=== PATIENT | male | born 1950 | race Caucasian/White ===

== ENCOUNTER 2016-12-14 06:54 | Day surgery (SDC) | payer MEDICARE, OTHER ==
[~2016-12-14] VITALS: Ht 172.7 cm; Wt 74.8 kg
[~2016-12-14 06:54] MED LIST: DIVALPROEX SOD250 M1 PO; HYDROXYZINE HCL25 M1 PO; MEDDOSEPAK PO; MOTRIN800 MG PO; OMEPRAZOLE20 MG PO; PHENERGAN25 MG/TAB PO; TERAZOSIN HCL5 MG PO; VENTOLIN HFA IN; ZITHROMAX250 MG PO
[2016-12-14] MEDS ORDERED: ASMANEX (07:07)
[2016-12-14 07:15] VITALS: BP 155/95
[2016-12-14 07:16] LABS: BARBITURATES NEGATIVE (NEGATIVE); COCAINE POSITIVE (NEGATIVE); METHADONE NEGATIVE (NEGATIVE); OXCYCODONE NEGATIVE (NEGATIVE); TETRAHYDROCANNABIONOL NEGATIVE (NEGATIVE); TRICYLIC ANTIDEPRESSANTS NEGATIVE (NEGATIVE)
== END 2016-12-14 07:25 | disposition home or self-care (01) ==
LOC: ENDO 06:54
PROVIDERS: ATTEND Internal Medicine Gastroenterology
DX: Z12.11 Encounter for screening for malignant neoplasm of colon (principal); K21.9 Gastro-esophageal reflux disease without esophagitis; E78.00 Pure hypercholesterolemia, unspecified; Z53.09 Procedure and treatment not carried out because of other contraindication

== ENCOUNTER 2017-08-04 08:03 | Inpatient (IN) | payer MEDICARE, OTHER ==
[~2017-08-04] VITALS: Ht 172.7 cm; Wt 76.0 kg
[~2017-08-04 08:03] MED LIST changes: +ASMANEX
[2017-08-04] MEDS ORDERED: SIMVASTATIN5 MG PO (08:18)
--- NOTE | 2017-08-04 08:19 | NUR ---
PT TO ROOM FOR EXAM
--- NOTE | 2017-08-04 08:35 | NUR ---
IV INITIATED AND LABS COLLECTED. RT AT BEDSIDE.
--- NOTE | 2017-08-04 09:00 | NUR ---
PT RESTING IN STRETCHER WITH HOB ELEVATED. LS DIMISHED BILATERALLY. PT REPORTS 1 WEEK HX OF PRODUCTIVE COUGH. PER PT SAO2 91-93% ON ROOM AIR, UPON ARRIVAL SAO2 88%. PT SAO2 93 % ON 2 L NC. PT AWARE OF PLAN OF CARE AND WAIT TIME, WILL CONTINUE TO MONITOR.
[2017-08-04 09:18] LABS: HEMATOCRIT 42.3 % (39.0-50.0); HEMOGLOBIN 14.7 g/dl (14.0-18.0); IMMATURE GRANULOCYTES 0.4 % (0.0-1.0); MEAN CELL VOLUME 88.1 fL CALC (80.0-100.0); MEAN CORPUSCULAR HGB 30.6 pG CALC (26.0-32.0); MEAN CORPUSCULAR HGB CONC 34.8 g/L CALC (32.0-36.0); NEUT# 5.72 thou/uL (1.82-7.42); RED BLOOD COUNT 4.8 mill/uL (4.70-6.10); RED CELL DISTRI WIDTH 12.9 % (11.5-15.5)
[2017-08-04 09:43] LABS: ALBUMIN 4.1 g/dL (3.2-5.0); ALKALINE PHOSPHATASE 128 u/l (38-126); ANION GAP 17 (6-22 (CALC)); BILIRUBIN, TOTAL 0.7 mg/dL (0.0-1.4); BUN 14 mg/dL (8-23); BUN/CREATININE RATIO 14 (12-20 (CALC)); CALCIUM 9.8 mg/dL (8.4-10.2); CARBON DIOXIDE 26 mmol/l (22-30); CHLORIDE 100 mmol/l (95-108); GFR > 60 ML/MIN (>=60 (CALC)); GFR FOR AFR.AMER. > 60 ML/MIN (>=60 (CALC)); GLUCOSE 108 mg/dL (82-115); POTASSIUM 3.8 mmol/l (3.5-5.1); SGOT/AST 31 u/l (19-48); SGPT/ALT 40 u/l (11-66); SODIUM 140 mmol/l (137-146); TOTAL PROTEIN 7.9 g/dL (6.3-8.2)
[2017-08-04 09:54] LABS: MYOGLOBIN 38 ng/mL (0 - 121)
--- NOTE | 2017-08-04 09:56 | NUR ---
URINE SAMPLE COLLECTED. PT REPORTS INCREASED SOB FROM STANDING TO USE URINAL. SA02 90% ON 2L AND RR 26. PT INCOURAGED TO SLOW BREATHING AND HOB ELEVATED. PT SA02 NOW 93% ON 2L, NC.
--- NOTE | 2017-08-04 10:08 | NUR ---
AT [facility] TO DISCUSS RESULTS AND PLAN FOR ADMISSION.
--- NOTE | 2017-08-04 11:08 | NUR ---
SBAR PRINTED TO FLOOR
--- NOTE | 2017-08-04 11:30 | NUR ---
PT RESTING COMFORTBALY IN STRETCHER AND DENIES ANY NEEDS AT THIS TIME. CALL ARCHER WITHIN REACH, WILL CONTINUE TO MONITOR.
--- NOTE | 2017-08-04 11:50 | NUR ---
REPORT CALLED TO CELENA ROSS.
--- NOTE | 2017-08-04 12:00 | NUR ---
FROM ER VIA WHEELCHAIR ACCOMPANIED BY LORNA DALLAS. AMBULATED TO BED WITH STEADY GAIT. RESPS LABORED ON O2 VIA NC, EXERTIONAL SHORTNESS OF BREATH NOTED, TELE MONITOR IN PLACE. REPORTS "PAIN UNDER RIGHT RIBCAGE FROM COUGHING FOR OVER A WEEK." WILL MEDICATE PER SEP. ORIENTED TO ROOM AND CALL SYSTEM. SAFETY PRECAUTIONS REINFORCED. BED IN LOWEST POSITION WITH WHEELS LOCKED. CALL LIGHT WITHIN REACH. WILL CONTINUE TO MONITOR.
--- NOTE | 2017-08-04 12:00 | NUR ---
Admission Note Report Given to: CELENA ROSS Transported by: X Wheelchair Stretcher Transported with: X Nurse Transporter X Patent IV X O2 X Director Of People
[2017-08-04 12:11] VITALS: BP 147/88
--- NOTE | 2017-08-04 13:40 | NUR ---
DR BLANKENSHIP IN WITH PT, NEW ORDERS RECEIVED.
[2017-08-04 14:21] LABS: URINE BILIRUBIN - DIPSTICK NEGATIVE (NEGATIVE); URINE BLOOD DIPSTICK TRACE-INTACT (NEGATIVE); URINE COLOR YELLOW; URINE GLUCOSE - DIPSTICK >=1000 mg/dL (NEGATIVE); URINE KETONE NEGATIVE (NEGATIVE); URINE LEUK ESTERASE NEGATIVE (Negative); URINE NITRITE - DIPSTICK NEGATIVE (Negative); URINE PROTEIN - DIPSTICK NEGATIVE (NEG-TRACE); URINE SPECIFIC GRAVITY <=1.005; URINE UROBILINOGEN - DIPSTICK 0.2 E.U./dL (0.2)
[2017-08-04 14:22] LABS: URINE CLARITY CLEAR
[2017-08-04 14:24] LABS: BARBITURATES NEGATIVE (NEGATIVE); COCAINE POSITIVE (NEGATIVE); METHADONE NEGATIVE (NEGATIVE); OXCYCODONE NEGATIVE (NEGATIVE); TETRAHYDROCANNABIONOL NEGATIVE (NEGATIVE); TRICYLIC ANTIDEPRESSANTS NEGATIVE (NEGATIVE)
--- NOTE | 2017-08-04 16:00 | NUR ---
RESTING IN HIGH FOWLERS WATCHING TV. RESPS EVEN AND UNLABORED ON O2 VIA NC, EXERTIONAL SHORTNESS OF BREATH NOTED, TELE MONITOR IN PLACE. DENIES PAIN OR DISCOMFORT AT THIS TIME. CALL LIGHT WITHIN REACH. WILL CONTINUE TO MONITOR.
[2017-08-04 16:04] VITALS: BP 128/80
--- NOTE | 2017-08-04 20:00 | NUR ---
PATIENT RESTING IN BED AT THIS TIME WITH O2 VIA NASAL CANNULA IN PLACE. JUST FINISHED SHOWER. SLIGHT SOB NOTED AFTER EXHERSION. PRODUCTIVE COUGH WITH GREEN SPUTUM PER PATIENT. HEP LOCK TO LEFT AC-SITE APPEARS HEALTHY AT THIS TIME. SAFETY PRECAUTIONS REINFORCED. CALL LIGHT IN REACH. WILL CONT TO MONITOR.
[2017-08-04 20:27] VITALS: BP 129/75
--- NOTE | 2017-08-04 22:34 | NUR ---
PATIENT RESTING IN BED AT THIS TIME WITH O2 VIA NASAL CANNULA IN PLACE. PATIENT JUST FININISHED SHOWER. SLIGHT SOB NOTED AFTER EXHERSION. PRODUCTIVE COUGH WITH GREEN SPUTUM. HEP LOCK TO THE LEFT AC-SITE APPEARS HEALTHY AT THIS TIME. SAFETY PRECAUTIONS REINFORCED. CALL LIGHT IN REACH. WILL CONT TO MONITOR.
--- NOTE | 2017-08-04 23:41 | NUR ---
PATIENT FINISHED NEB TREATMENT AND HAVING PRODUCTIVE COUGH. O2 VIA NASAL CANNULA IN PLACE. WATCHING TV AT THIS TIME. CALL LIGHT IN REACH. WILL CONT TO MONITOR.
[2017-08-04 23:44] VITALS: BP 133/80
--- NOTE | 2017-08-05 04:09 | NUR ---
PATIENT CALLED REQUESTING NEB TREATMENT-O2 VIA NASAL CANNULA IN PLACE. BS-DIMINISHED BUT CLEAR-FIME CRACKLES IN RIGHT BASE. RT CALLED FOR RESP TREAMENT. CALL LIGHT IN REACH. WILL CONT TO MONITOR.
[2017-08-05 05:24] VITALS: BP 128/70
--- NOTE | 2017-08-05 07:00 | NUR ---
SHIFT CHANGE REPORT FROM SHASHI PABLO AWAKE ALERT AND ORIENTED SITTING UP IN BED, NO C/O DISCOMFORT AT THIS TIME, O2 @ 2L VIA N/C IN PLACE,TELE MONITOR IN PLACE, CALL ARCHER IN REACH.
[2017-08-05 09:20] VITALS: BP 148/85
[2017-08-05 11:00] VITALS: BP 125/73
--- NOTE | 2017-08-05 12:03 | NUR ---
HAVING COUGHING SPELL AT THIS TIME AND STATES HE FEELS IF THERE IS SOMETHING IN HIS THROAT, HE EVENTUALLY EXPELLED A SMALL PIECE OF HAMBURGER AND ALSO EXPECTORATED THICK YELLOW SPUTUM-THENHE FELT BETTER AND COUGHING SUBSIDED, WILL CONTINUE TO MONITOR.
[2017-08-05 15:33] VITALS: BP 114/53
--- NOTE | 2017-08-05 15:57 | NUR ---
REQUESTED W/C STATING HE GETS TIRED OF BEING ON ONE PLACE SO LONG, W/C WITH O2 TANK GIVEN AND PT IS MOBILIZING HIMSELF IN HALLWAYS, REQUESTED ASSISTANCE WITH SHAVING AT THIS TIME, GIVEN SUPPLIES AND SHAVED INDEPENDENTLY, ALL NEEDS ADDRESSED, SNACK GIVEN UPON REQUEST, CALL ARCHER IN REACH.
--- NOTE | 2017-08-05 16:18 | NUR ---
Talked to patient today about his medications. He felt better, his cough symptoms have reduced and has some energy. he reported about some abdominal cramping when he coughs. Pt. has COPD exacerbation. he said no joint pain with levaquin. Nicotine patch he is on, this medication causes some eyes itching, but not watery eyes or insomnia. Patient said that duoneb nebulizer helped relief his symptoms. Patient has no other questions to the pharmacy at this time.
[2017-08-05 19:00] VITALS: BP 136/69
--- NOTE | 2017-08-05 19:30 | NUR ---
PATIENT COMING OUT OF THE BR-STEADY ON HIS FEET. ALERT AND ORIENTED X3. PATIENT REAPPLIED O2 IN BED. HEP LOCK TO LEFT AC INTACT-APPEARS HEALTHY AT THIS TIME. NO COMPLAINTS AT THIS TIME. SAFETY PRECAUTIONS REINFORCED. CALL LIGHT IN REACH. WILL CONT TO MONITOR.
--- NOTE | 2017-08-05 22:00 | NUR ---
PATIENT RESTING IN BED AT THIS TIME AFTER NEB TREATMENT WAS GIVEN. MEDICATED WITH TRAZADONE AND MOTRIN TO ASSIST WITH SLEEPING. COUGH HAS IMPROVED SINCE LAST NIGHT-ONLY OCC PRODUCTIVE COUGH. SOLU-MEDROL GIVEN ORDERED. CALL LIGHT IN REACH. WILL CONT TO MONITOR.
[2017-08-06 00:46] VITALS: BP 126/70
--- NOTE | 2017-08-06 01:05 | NUR ---
APPEARS SLEEPING AT THIS TIME WITH O2 VIA NASAL CANNULA IN PLACE. CALL LIGHT IN REACH. WILL CONT TO MONITOR.
[2017-08-06 04:19] VITALS: BP 140/84
[2017-08-06 06:20] LABS: ANION GAP 17 (6-22 (CALC)); BUN 19 mg/dL (8-23); BUN/CREATININE RATIO 18 (12-20 (CALC)); CALCIUM 9.8 mg/dL (8.4-10.2); CARBON DIOXIDE 25 mmol/l (22-30); CHLORIDE 104 mmol/l (95-108); GFR > 60 ML/MIN (>=60 (CALC)); GFR FOR AFR.AMER. > 60 ML/MIN (>=60 (CALC)); GLUCOSE 165 mg/dL (82-115); POTASSIUM 4.5 mmol/l (3.5-5.1); SODIUM 142 mmol/l (137-146)
[2017-08-06 08:12] VITALS: BP 142/88
[2017-08-06 11:00] VITALS: BP 156/84
[2017-08-06] MEDS ORDERED: IPRATROPIU0.5 MG/3 M NEB (12:37)
[2017-08-06] MEDS ORDERED: LEVAQUIN750 MG PO (12:37)
[2017-08-06] MEDS ORDERED: PREDNISONE10 MG PO (12:42)
[2017-08-06] MEDS ORDERED: NEBULIZER COMPRESSOR (12:42)
--- NOTE | 2017-08-06 12:51 | NUR ---
SITTING UP IN RECLINER, SPOUSE VISITING AND REPORTED PT'S GLUCOSE DROPS RAPIDLY DURING SLEEP, SHE MEASURES OFTEN AND HIS LEVEL COULD BE ABOVE 300 AT HS AND LOW 9 IN THE MORNINGS. ADVISED HE WILL BE MONITORED CLOSELY HERE AND MEDICAL STAFF WILL ADDRESS SITUATION. SHE IS CONCERNED ABOUT US GIVING INSULIN BUT REASSURED STAFF WILL DO BEST TO PREVENT CRISIS WHILE CONTROLLING BLOOD GLUCOSE LEVELS.
--- NOTE | 2017-08-06 13:13 | NUR ---
Pt was seen for dicharge medication education. Pt expressed acute familiarity with nebulization from helping his neighbor use his nebulizer. Purpose of levaquin was elucidated and pt was walked through dosing schedule for prednisone. Pt expressed a want for hypnotic medication to help him sleep. Pt also explained that he's attempted to use NRT lozenges to quit smoking but they are too large. Pt was told there are mini lozenges. A script for nictoine patches (for basal control) and nicotine lozenges (for breakthrough) was written for the pt. Proper utilization of NRT including lozenges, gum, and patches was explained. Pt seems optimistic about being able to stick to this regimen. Pt had no further questions or concerns.
--- NOTE | 2017-08-06 15:12 | NUR ---
Discharge instructions given. Patient verbalizes understanding of same. Discharged in fair condition via Wheelchair to Home with family. All belongings sent with pt.
== END 2017-08-06 15:12 | disposition home or self-care (01) | DRG 189 ==
LOC: ED 08:03 → ED-I 09:56 → ED 11:11 → MS2 11:12
PROVIDERS: Emergency Medicine; Nurse Practitioner Family; ADMIT Internal Medicine; ATTEND Internal Medicine
DX: J96.01 Acute respiratory failure with hypoxia (principal); I48.91 Unspecified atrial fibrillation; J44.1 Chronic obstructive pulmonary disease with (acute) exacerbation; F17.210 Nicotine dependence, cigarettes, uncomplicated; F14.10 Cocaine abuse, uncomplicated
CPT/HCPCS: J1650

== ENCOUNTER 2017-10-16 08:36 | Inpatient (IN) | payer OTHER, MEDICARE, MEDICAID ==
[~2017-10-16] VITALS: Ht 172.7 cm; Wt 82.2 kg
[~2017-10-16 08:36] MED LIST changes: +IPRATROPIU0.5 MG/3 M NEB; +LEVAQUIN750 MG PO; +NEBULIZER COMPRESSOR; +PREDNISONE10 MG PO; +SIMVASTATIN5 MG PO
--- NOTE | 2017-10-16 08:46 | NUR ---
WHEELCHAIR TO ER ROMOM 10, TO B ED
--- NOTE | 2017-10-16 08:50 | NUR ---
IV INITIATED AND LABS AND BC X 1 COLLECTED. PT DENIES ANY PAIN AT THIS TIME. PT SOB, ABLE TO SPEAK IN 2-3 WORDS. ACCESORY MUSCLE USE NOTE. NEB TX STARTED. LUNG SOUNDS DIMINISHED IN THE BILATERAL LOWER LOBES AND WHEEZES NOTED THROUGHOUT. HOB ELEVATED. PT AWARE OF PLAN OF CARE AND WAIT TIME. CALL ARCHER WITHIN REACH.
[2017-10-16 08:58] LABS: HEMATOCRIT 46.1 % (39.0-50.0); HEMOGLOBIN 15.2 g/dl (14.0-18.0); IMMATURE GRANULOCYTES 0.4 % (0.0-1.0); MEAN CELL VOLUME 91.8 fL CALC (80.0-100.0); MEAN CORPUSCULAR HGB 30.3 pG CALC (26.0-32.0); NEUT# 2.95 thou/uL (1.82-7.42); RED BLOOD COUNT 5.02 mill/uL (4.70-6.10)
[2017-10-16] MEDS ORDERED: TRAZODONE50 MG PO (09:17)
[2017-10-16 09:21] LABS: INFLUENZA A NONE DETECTED (NONE DETECT); INFLUENZA B NONE DETECTED (NONE DETECT)
[2017-10-16 09:25] LABS: ANION GAP 16 (6-22 (CALC)); BUN 16 mg/dL (8-23); BUN/CREATININE RATIO 16 (12-20 (CALC)); CARBON DIOXIDE 27 mmol/l (22-30); CHLORIDE 104 mmol/l (95-108); GFR > 60 ML/MIN (>=60 (CALC)); GFR FOR AFR.AMER. > 60 ML/MIN (>=60 (CALC)); POTASSIUM 4.5 mmol/l (3.5-5.1); SODIUM 144 mmol/l (137-146)
--- NOTE | 2017-10-16 09:30 | NUR ---
PT RESTING COMFORTABLY IN STRETCHER AND DENIES ANY NEEDS AT THIS TIME. RR NOW 22. PER PT HE IS FEELING MUCH BETTER AND IS TALKING AND LAUGHING WITH STAFF. CALL ARCHER WITHIN REACH, WILL CONTINUE TO MONITOR.
--- NOTE | 2017-10-16 09:45 | NUR ---
SBAR PRINTED TO FLOOR
--- NOTE | 2017-10-16 09:55 | NUR ---
CALL PLACED TO MS, NURSE WILL CALL BACK FOR REPORT.
--- NOTE | 2017-10-16 10:08 | NUR ---
REPORT CALLED TO CELENA HAYES.
--- NOTE | 2017-10-16 10:15 | NUR ---
Admission Note Report Given to: CELENA WALLACE Transported by: X Wheelchair Stretcher Transported with: X Nurse Transporter X Patent IV X O2 X Reference Services Head PT TO ROOM 269 VIA WHEELCHIAR WITH TELE MONITOR AND 2L OF O2 VIA NC IN STABLE CONDITION.
--- NOTE | 2017-10-16 10:20 | NUR ---
PT ARRIVED TO FLOOR VIA WHEELCHAIR ACCOMPANIED BY CELENA ROTHMAN. O2 @ 2L VIA NC. PT AMBULATING INDEPENDENTLY IN ROOM. STEADY GAIT. DENIES PAIN. REPORTING OF CONCERNS ENCOURAGED. INQUIRING ABOUT NEXT MEAL, MEAL SCHEDULES REVIEWED. PLAN OF CARE DISCUSSED. CALL LIGHT REVIEWED AND IN REACH. PT STATES UNDERSTANDING. PMH REVIEWED, ASSESSMENT COMPLETED. PT REPORTS DAILY CRACK COCAINE USE, BUT REPORTS CESSATION OF SMOKING CIGARETTES.
[2017-10-16 10:30] VITALS: BP 138/72
--- NOTE | 2017-10-16 13:03 | NUR ---
Pharmacy consulted to assist with medication reconciliation. Contacted pt's listed pharmacy, [facility], however pt has not filled recently with them. Pt is primarily seen by the [facility] clinic. Contacted [facility] and faxed authorization to release medical information form signed by patient, explicitly requesting a current medication list.
[2017-10-16] MEDS ORDERED: MOTRIN200 MG PO (14:21)
[2017-10-16 16:00] VITALS: BP 148/79
--- NOTE | 2017-10-16 16:48 | NUR ---
PT REQUESTING FREQUENT SNACKS. ICE CREAM AND COFFEE PROVIDED.
[2017-10-16 19:10] VITALS: BP 143/76
--- NOTE | 2017-10-16 19:45 | NUR ---
PT SITTING UP IN BED WATCHING TV. PT IS ALERT AND ORIENTED X3. PERRLA. RESP ARE EVEN AND UNLABORED. NO DISTRESS NOTED. LUNGS ARE CLEAR AND DIMINISHED IN THE BASES. TELE IN PLACE. HR REGULAR, PULSES PALPABLE THROUGHOUT. NO EDEMA NOTED. BS ACTIVE. O2 2L NC. HOME O2 DEPENDEDNT. #20 RAC SALINE LOCKED. NO REDNESS OR EDEMA NOTED. CALL LIGHT IN REACH. WILL CONTINUE TO MONITOR
--- NOTE | 2017-10-16 22:29 | NUR ---
LAB INTO DRAW TROPONIN
--- NOTE | 2017-10-16 23:52 | NUR ---
PT RESTING IN BED AWAKE. RESP ARE EVEN AND UNLABORED. NO DISTRESS NOTED. CALL LIGHT IN REACH. WILL CONTINUE TO MONITOR
[2017-10-17 00:05] VITALS: BP 138/63
--- NOTE | 2017-10-17 04:12 | NUR ---
PT RESTING IN BED. PT STATES THAT THE XANAX DID NOT HELP HIM SLEEP AND HE HAS BEEN UP FOR 4 DAYS. CALL LIGHT IN REACH. WILL CONTINUE TO KELLEY
[2017-10-17 04:31] VITALS: BP 140/72
[2017-10-17 05:58] LABS: MEAN CELL VOLUME 91.4 fL CALC (80.0-100.0); MEAN CORPUSCULAR HGB 30.9 pG CALC (26.0-32.0); MEAN CORPUSCULAR HGB CONC 33.8 g/L CALC (32.0-36.0); RED BLOOD COUNT 4.18 mill/uL (4.70-6.10); RED CELL DISTRI WIDTH 13.5 % (11.5-15.5)
[2017-10-17 05:59] LABS: HEMATOCRIT 38.2 % (39.0-50.0); HEMOGLOBIN 12.9 g/dl (14.0-18.0)
[2017-10-17 06:17] LABS: ANION GAP 17 (6-22 (CALC)); BUN 16 mg/dL (8-23); BUN/CREATININE RATIO 16 (12-20 (CALC)); CARBON DIOXIDE 24 mmol/l (22-30); CHLORIDE 104 mmol/l (95-108); GFR > 60 ML/MIN (>=60 (CALC)); GFR FOR AFR.AMER. > 60 ML/MIN (>=60 (CALC)); POTASSIUM 4.2 mmol/l (3.5-5.1); SODIUM 141 mmol/l (137-146)
--- NOTE | 2017-10-17 07:22 | NUR ---
SHIFT CHANGE REPORT FROM NILES, PT AWAKE ALERT AND ORIENTED, DENIES PAIN AT THIS TIME BUT REPORTED HE HAD A HEADACHE LAST NIGHT AND WAS GIVEN XANAX, HAS NOT SLEPT ALL NIGHT, STATES HE TAKES TRAZADONE AT HOME WHICH GIVES HIM 2 HRS OF SLEEP. TELE MONITOR IN PLACE, WILL CONTINUE TO MONITOR AND ADDRESS NEEDS.
[2017-10-17 11:00] VITALS: BP 144/83
--- NOTE | 2017-10-17 13:04 | NUR ---
REQUESTING TO GET OUT OF ROOM AT THIS TIME STATING HE GETS CLUSTERPHOBIC BEING IN ROOM ALL DAY, O2 SET UP ON W/C, GIVEN TO PT AND ALLOWED HIM TO MOBILISE HIMSELF OUT OF ROOM, IN HALLWAY AT THIS TIME, ALL NEEDS ADDRESSED.
--- NOTE | 2017-10-17 15:23 | NUR ---
Contacted [facility] again requesting [facility] medication list. [facility] and requested that we re-fax authorization to release information sent on 10/17. Re-faxed signed form. Will follow up again tomorrow if no response.
--- NOTE | 2017-10-17 15:40 | NUR ---
RESTING IN ROOM AT THIS TIME, ALL NEEDS ADDRESS, PERIODICALLY MOBILISES SELF IN HALLWAY VIA W/C, CALL ARCHER IN REACH.
[2017-10-17 16:24] VITALS: BP 140/78
[2017-10-17 19:10] VITALS: BP 141/76
--- NOTE | 2017-10-17 19:46 | NUR ---
BEDSIDE REPORT RECEIVED FROM CELENA DIXON. PT SELF PROPELING IN W/C IN HALLWAYS WITH OXYGEN IN PLACE AT 2L VIA NV. C/O ABDOMINAL TENDERNESS WHEN COUGHING; NON PRODUCTIVE COUGH; OTHERWISE DENIES PAIN. RESPIRAITONS EVEN AND UNLABORED ON THE OXYGEN. PLAN OF CARE DISCUSSED. PT [id number] TO VERBALIZE CONCERNS. STATES UNDERSTANDING. SAFETY MEASURES IN PLACE. CALL LIGHT WITHIN REACH.
[2017-10-18] VITALS (7 sets, daily range): BP systolic 121–155; BP diastolic 68–87
--- NOTE | 2017-10-18 00:08 | NUR ---
PT SITTING UP IN BED WATCHING TV EATING ICE CREAM. XANAX GIVEN AT HS AND ROBITUSSIN FOR COUGH WTIH GOOD EFFECT. PT ENCOURAGED TO TRY TO GET SOME REST. INDEPENDNENT IN ROOM; USES CALL LIGHT PRN FOR ASSISTANCE. SAFETY MEASURES IN PLACE. CALL LIGHT WITHIN REACH.
--- NOTE | 2017-10-18 04:00 | NUR ---
PT AWAKE AND SITTING UP IN BED; DID NOT SLEEP MUCH LAST NIGHT. C/O HEADACHE 02/21 AND MOTRIN GIVEN. RESPIRATIONS EVEN AND UNLABORED ON OXYGEN; HAS EXERTIONAL SOB. PT REQUESTED BREATHING TREATMENT AT THIS TIME AND IT WAS ADMINSITERED BY RT. NO ACUTE CHANGES IN CONDITION THROUGHOUT THE NIGHT. SAFETY MEASURES IN PLACE. CALL LIGHT WITHIN REACH.
[2017-10-18 05:25] LABS: HEMATOCRIT 39.4 % (39.0-50.0); HEMOGLOBIN 13.2 g/dl (14.0-18.0); MEAN CELL VOLUME 92.1 fL CALC (80.0-100.0); MEAN CORPUSCULAR HGB 30.8 pG CALC (26.0-32.0); MEAN CORPUSCULAR HGB CONC 33.5 g/L CALC (32.0-36.0); RED BLOOD COUNT 4.28 mill/uL (4.70-6.10); RED CELL DISTRI WIDTH 13.7 % (11.5-15.5)
--- NOTE | 2017-10-18 07:36 | NUR ---
SHIFT CHANGE REPORT FROM SHASHI GALEANA AWAKE ALERT AND ORIENTED RESTING IN BED, REPORTS HE SLEPT BETTER LAST NAGHT THAN HE DID THE NIGHT BEFORE, O2 @ 2L IN PLACE VIA N/C, TELE MONITOR IN PLACE AND CALL ARCHER IN REACH.
--- NOTE | 2017-10-18 12:14 | NUR ---
GOING UP-AND -DOWN IN W/C, STATES HE WANTS TO GO HOME AND INQUIRING WHEN WILL HE BE SENT HOME, ADVISED MD WILL BE ROUNDING SOMETIME TODAY AND HE WILL BE MORE INFORMED WHEN SHE GETS HERE.
--- NOTE | 2017-10-18 19:54 | NUR ---
BEDSIDE REPORT RECEIVED FROM CELENA DIXON. PT SELF PROPELING IN WHEELCHAIR IN HALLWAYS. REQUESTS MOTRIN FOR A HEADAHCE. REPSIRATIONS EVEN AND UNLABORED ON OXYGEN VIA NC. PLAN OF CARE REVIEWED. PT ENCOURAGE TO VERBALIZE CONCERNS. STATES UNDERSTANDING. SAFETY MEASURES IN PLACE. CALL LIGHT WITHIN REACH.
[2017-10-19] VITALS: BP 144/82
--- NOTE | 2017-10-19 00:10 | NUR ---
PT SITTING UP IN BED WATCHING TV; XANAX, ROBITUSSIN, AND MOTRIN GIVEN AT HS ALONG WITH SNACK PER REQUEST. PT INDEPENDENT IN ROOM; USES CALL LIGHT PRN FOR ASSISTANCE. SAFETY MEASURES IN PLACE. CALL LIGHT WITHIN REACH.
--- NOTE | 2017-10-19 04:19 | NUR ---
PT RESTING IN BED WITH EYES CLOSED; AWAKENS EASILY. ROBITUSSIN AND DUONEB GIVE FOR COUGH AND SOB WITH GOOD EFFECT. DENIES PAIN. REPSIRATIONS LABORED PRIOR TO BREATHING TREATMENT. SAFETY MEASURES IN PLACE. CALL LIGHT WITHIN REACH.
[2017-10-19 04:50] VITALS: BP 155/95
--- NOTE | 2017-10-19 07:28 | NUR ---
REPORT RECEIVED FROM CEELNA GALEANA. PT SITTING ON SIDE OF BED. IVS FOUND DISLODGED FROM RAC. REPORTING OF CONCERNS ENCOURAGED. PLAN OF CARE DISCUSSED. PT STATES ANTICIPATION OF DISCHARGE. DISCHARGE PROCESS REVIEWED. CALL LIGHT REVIEWED AND IN REACH.
[2017-10-19 08:46] VITALS: BP 153/97
[2017-10-19] MEDS ORDERED: ZITHROMAX250 MG PO (08:56)
[2017-10-19] MEDS ORDERED: PREDNISONE20 MG PO (08:58)
--- NOTE | 2017-10-19 10:11 | NUR ---
Discharge instructions given. Patient verbalizes understanding of same. Discharged in stable condition via Wheelchair to Home with *Other. All belongings sent with pt.
== END 2017-10-19 10:10 | disposition home or self-care (01) | DRG 190 ==
LOC: ED 08:36 → ED-I 09:30 → ED 09:43 → MS2 09:44
PROVIDERS: Family Medicine; Nurse Practitioner Family; ADMIT Internal Medicine; ATTEND Internal Medicine
DX: J44.1 Chronic obstructive pulmonary disease with (acute) exacerbation (principal); J96.21 Acute and chronic respiratory failure with hypoxia; I50.9 Heart failure, unspecified; I25.10 Atherosclerotic heart disease of native coronary artery without angina pectoris; E78.5 Hyperlipidemia, unspecified; F14.10 Cocaine abuse, uncomplicated; F41.9 Anxiety disorder, unspecified; N40.0 Benign prostatic hyperplasia without lower urinary tract symptoms; Z87.891 Personal history of nicotine dependence; Z99.81 Dependence on supplemental oxygen

== ENCOUNTER 2018-02-16 20:26 | Emergency (ER) | payer MEDICARE, MEDICAID ==
[~2018-02-16] VITALS: Ht 172.7 cm; Wt 100.0 kg
[~2018-02-16 20:26] MED LIST changes: +MOTRIN200 MG PO; +PREDNISONE20 MG PO; +TRAZODONE50 MG PO
--- NOTE | 2018-02-16 20:49 | NUR ---
BREATHING TREATMENT GIVEN BACK TO BACK USING FACE MASK. BREATHING TECH. FOR GOOD DEPOSITION TO THEM LUNGS FOR SOB AND WHEEZES.
[2018-02-16 20:56] LABS: HEMATOCRIT 43.3 % (39.0-50.0); HEMOGLOBIN 14.9 g/dl (14.0-18.0); IMMATURE GRANULOCYTES 0.2 % (0.0-5.0); MEAN CELL VOLUME 89.5 fL CALC (80.0-100.0); MEAN CORPUSCULAR HGB 30.8 pG CALC (26.0-32.0); MEAN CORPUSCULAR HGB CONC 34.4 g/L CALC (32.0-36.0); NEUT# 2.99 thou/uL (1.82-7.42); RED BLOOD COUNT 4.84 mill/uL (4.70-6.10); RED CELL DISTRI WIDTH 13.3 % (11.5-15.5)
[2018-02-16 21:20] LABS: ALBUMIN 4.1 g/dL (3.2-5.0); BILIRUBIN, TOTAL 0.4 mg/dL (0.0-1.4); BUN 19 mg/dL (8-23); BUN/CREATININE RATIO 14 (12-20 (CALC)); CHLORIDE 100 mmol/l (95-108); CREATININE 1.4 mg/dL (0.7-1.3); GFR 51 ML/MIN (>=60 (CALC)); GFR FOR AFR.AMER. > 60 ML/MIN (>=60 (CALC)); POTASSIUM 3.8 mmol/l (3.5-5.1); SGOT/AST 24 u/l (19-48); SGPT/ALT 40 u/l (11-66); SODIUM 145 mmol/l (137-146); TOTAL PROTEIN 7.3 g/dL (6.3-8.2)
[2018-02-16 21:27] LABS: ALKALINE PHOSPHATASE 56 u/l (38-126); ANION GAP 13 (6-22 (CALC)); CARBON DIOXIDE 36 mmol/l (22-30)
[2018-02-16] MEDS ORDERED: PREDNISONE10 MG PO (21:49)
[2018-02-16] MEDS ORDERED: DOXYCYCL HYC100 MG PO (21:49)
[2018-02-16 22:41] VITALS: BP 125/66
== END 2018-02-16 22:41 | disposition home or self-care (01) ==
LOC: ED 20:26
PROVIDERS: Family Medicine
DX: J44.1 Chronic obstructive pulmonary disease with (acute) exacerbation (principal); I50.9 Heart failure, unspecified

== ENCOUNTER 2018-11-24 06:50 | Emergency (ER) | payer MEDICARE, MEDICAID ==
[~2018-11-24] VITALS: Ht 172.7 cm; Wt 84.0 kg
[~2018-11-24 06:50] MED LIST changes: +DOXYCYCL HYC100 MG PO
[2018-11-24 07:19] LABS: HEMATOCRIT 47.2 % (39.0-50.0); HEMOGLOBIN 15.5 g/dl (14.0-18.0); IMMATURE GRANULOCYTES 0.2 % (0.0-5.0); MEAN CELL VOLUME 92.2 fL CALC (80.0-100.0); MEAN CORPUSCULAR HGB 30.3 pG CALC (26.0-32.0); MEAN CORPUSCULAR HGB CONC 32.8 g/L CALC (32.0-36.0); NEUT# 3.48 thou/uL (1.82-7.42); RED BLOOD COUNT 5.12 mill/uL (4.70-6.10); RED CELL DISTRI WIDTH 13.2 % (11.5-15.5)
[2018-11-24 07:59] LABS: ALBUMIN 4.2 g/dL (3.2-5.0); ALKALINE PHOSPHATASE 66 u/l (38-126); ANION GAP 13 (6-22 (CALC)); BILIRUBIN, TOTAL 0.5 mg/dL (0.0-1.4); BUN 17 mg/dL (8-23); BUN/CREATININE RATIO 20 (12-20 (CALC)); CHLORIDE 103 mmol/l (95-108); CREATININE 0.9 mg/dL (0.7-1.3); GFR > 60 ML/MIN (>=60 (CALC)); GFR FOR AFR.AMER. > 60 ML/MIN (>=60 (CALC)); POTASSIUM 4.3 mmol/l (3.5-5.1); SGOT/AST 25 u/l (19-48); SODIUM 140 mmol/l (137-146); TOTAL PROTEIN 7.2 g/dL (6.3-8.2)
[2018-11-24 08:03] LABS: CARBON DIOXIDE 28 mmol/l (22-30)
[2018-11-24] MEDS ORDERED: PROVENTIL HFA IN (08:57)
[2018-11-24] MEDS ORDERED: MEDDOSEPAK PO (08:57)
[2018-11-24 09:01] VITALS: BP 176/102
[2018-11-24] MEDS ORDERED: NEBULIZE2 IN (09:30)
== END 2018-11-24 09:05 | disposition home or self-care (01) ==
LOC: ED 06:50
PROVIDERS: Emergency Medicine
DX: J44.1 Chronic obstructive pulmonary disease with (acute) exacerbation (principal); I50.9 Heart failure, unspecified; F17.210 Nicotine dependence, cigarettes, uncomplicated
CPT/HCPCS: J3475

== ENCOUNTER 2019-04-27 10:27 | Observation (INO) | payer MEDICARE, MEDICAID ==
[~2019-04-27] VITALS: Ht 172.7 cm; Wt 79.2 kg
[~2019-04-27 10:27] MED LIST changes: +NEBULIZE2 IN; +PROVENTIL HFA IN
--- NOTE | 2019-04-27 10:34 | NUR ---
PT TO ROOM # 15 FOR BEDSIDE TRIAGE
--- NOTE | 2019-04-27 11:00 | NUR ---
PATIENT NOTED TO HAVE DIMINISHED LUNG SOUNDS TO RLL, ALL OTHER LUNG CHEEMA CLEAR. PATIENT REPORTS COUGH AND CHRONIC SOB. HAS HOME O2. RT AT BEDSIDE FOR BREATHING TREATMENT AND ABG. CALL LIGHT GIVEN. WILL CONTINUE TO MONITOR.
[2019-04-27 11:09] LABS: HEMATOCRIT 44.3 % (39.0-50.0); HEMOGLOBIN 15.1 g/dl (14.0-18.0); IMMATURE GRANULOCYTES 0.4 % (0.0-5.0); MEAN CELL VOLUME 87.9 fL CALC (80.0-100.0); MEAN CORPUSCULAR HGB CONC 34.1 g/L CALC (32.0-36.0); NEUT# 3.57 thou/uL (1.82-7.42); RED BLOOD COUNT 5.04 mill/uL (4.70-6.10); RED CELL DISTRI WIDTH 13.3 % (11.5-15.5)
[2019-04-27 11:13] LABS: ANION GAP 15 (6-22 (CALC)); BILIRUBIN, TOTAL 0.7 mg/dL (0.0-1.4); BUN 18 mg/dL (8-23); BUN/CREATININE RATIO 21 (12-20 (CALC)); CARBON DIOXIDE 31 mmol/l (22-30); CHLORIDE 95 mmol/l (95-108); CREATININE 0.9 mg/dL (0.7-1.3); GFR > 60 ML/MIN (>=60 (CALC)); GFR FOR AFR.AMER. > 60 ML/MIN (>=60 (CALC)); POTASSIUM 4.2 mmol/l (3.5-5.1); SGOT/AST 28 u/l (19-48); SODIUM 137 mmol/l (137-146); TOTAL PROTEIN 7.6 g/dL (6.3-8.2)
[2019-04-27 11:14] LABS: ALKALINE PHOSPHATASE 108 u/l (38-126)
--- NOTE | 2019-04-27 11:50 | NUR ---
PATIENT RESTING ON STRETCHER NO SIGNS OF RESP DISTRESS. PATIENT REQUESTING WARM BLANKET AND COFFEE. WARM BLANKET PROVIDED.
--- NOTE | 2019-04-27 12:00 | NUR ---
AT BEDSIDE TO DISCUSS RESULTS AND ADMIT. VERBAL UNDERSTANDING FROM PATIENT.
--- NOTE | 2019-04-27 12:33 | NUR ---
ATTEMPT MADE TO CALL REPORT, SPOKE TO AUBREY. WILL HAVE NURSE CALL BACK.
--- NOTE | 2019-04-27 12:41 | NUR ---
REPORT CALLED TO CELENA RHODES.
--- NOTE | 2019-04-27 12:50 | NUR ---
PATIENT NOTED TO HAVE PRODUCTIVE COUGH. YELLOW SPUTUM NOTED.
--- NOTE | 2019-04-27 13:04 | NUR ---
PATIENT TRANSPORTED TO [facility] VIA STRETCHER WITH TELE IN PLACE. CELENA RHODES. INFORMED OF PATIENT ARRIVAL TO ROOM. CARE RELINQUISHED.
[2019-04-27 13:05] VITALS: BP 147/81
--- NOTE | 2019-04-27 13:30 | NUR ---
PT ARRIVES TO FLOOR FROM ER, ALERT AND ORIENTED X 3. PT WITH PRODUCTIVE COUGH, 2 LPM NC. PT USES HOME OXYGEN. NO SHORTNESS OF BREATH NOTED, ALTHOUGH PT STATES THAT HE BECOMES BRAVO.
[2019-04-27] MEDS ORDERED: HEARTBURN MEDICATION (13:46)
[2019-04-27 16:04] VITALS: BP 157/79
--- NOTE | 2019-04-27 16:13 | NUR ---
PT CONTINUES WITH PRODUCTIVE COUGH, PT PROVIDED MOTRIN FOR HEADACHE PAIN. PT MOVES AROUND A LOT IN THE BED. PT CONFESSES TO USING CRACK COCAINE. NO COMPLAINTS.
[2019-04-27 18:53] VITALS: BP 151/86
--- NOTE | 2019-04-27 19:00 | NUR ---
RECEIVED REPORT FROM NURSE RHODES PATIENT RESTING REMAINS ON O2 @2LPM VIA NC WITH SHALLOW, UNLABORED BREATHING.
--- NOTE | 2019-04-27 23:25 | NUR ---
PATIENT CONTINUOUS TO HAVE PRODUCTIVE COUGH SMALL AMOUNT YELLOWISH SPUTUM, CALLED DR. ZHANG ABOUT PATIENT REQUEST FOR A THROAT LOZENGE WITH ORDERS MADE.
[2019-04-28 00:26] VITALS: BP 126/82
--- NOTE | 2019-04-28 02:18 | NUR ---
PATIENT APPEAR TO BE SLEEPING EYES CLOSED SIDE LYING POSITION EVEN UNLABORED BREATHING AT THIS TIME, CALL LIGHT AT REACH.
[2019-04-28 04:14] VITALS: BP 130/84
--- NOTE | 2019-04-28 06:29 | NUR ---
PATIENT CONTINUOUS TO HAVE PRODUCTIVE COUGH YELLOW SPUTUM, REQUESTED PRN LOZENGE.
[2019-04-28 06:53] LABS: COCAINE POSITIVE (NEGATIVE); METHADONE NEGATIVE (NEGATIVE); TETRAHYDROCANNABIONOL NEGATIVE (NEGATIVE)
[2019-04-28 06:54] LABS: BARBITURATES NEGATIVE (NEGATIVE); OXCYCODONE NEGATIVE (NEGATIVE); TRICYLIC ANTIDEPRESSANTS NEGATIVE (NEGATIVE)
[2019-04-28 08:00] VITALS: BP 148/86
--- NOTE | 2019-04-28 08:00 | NUR ---
PT ALERT AND ORIENTED X 3. LUNGS ARE CLEAR BUT DIMINISHED, PT WITH LOUD PRODUCTIVE COUGH. SKIN INTACT. PT AMBULATORY IN ROOM WITH STEADY GAIT.
--- NOTE | 2019-04-28 12:39 | NUR ---
PT WITH NEW IV SITE PER RAC PAINFUL. PT CONTINUES WITH LOUD LOOSE COUGH. NO DISTRESS, PT HOPES FOR DISCHARGE TOMORROW.
[2019-04-28 15:10] VITALS: BP 147/80
--- NOTE | 2019-04-28 16:00 | NUR ---
PT PROVIDED GI COCKTAIL FOR HEARTBURN. COUGH STILL HEARD, LESS FREQUENTLY. NO DISTRESS PT RESTS IN THE CHAIR AT BEDSIDE.
--- NOTE | 2019-04-28 18:30 | NUR ---
PT RECEIVES MOTRIN FOR HEADACHE PAIN. PT REMAINS AT REST IN THE BED, NO DISTRESS OR COMPLAINTS, NO SHORTNESS OF BREATH.
[2019-04-28 18:55] VITALS: BP 151/82
--- NOTE | 2019-04-28 20:00 | NUR ---
PATIENT RESTING IN BED WITH HOB ELEVATED AND O2 VIA NASAL CANNULA IN PLAE. PATIENT IS AWAKE ALERT AND ORIENTEX3. PATIENT WITH C/O HEADACHE-TOO EARLY FOR MOTRIN FOR PAIN-PATIENT INFORMED. TELE MONITOR IN PLACE. IV SITE TO RIGHT AC INTACT AND APPEARS HELATHY AT THIS TIME. PRODUCTIVE COUGH-YELLOW SPUTUM. LUNGS ARE DIMINISHED THOUGHOUT. PROVIDED WITH SNACKS. SAFETY PRECAUTIONS REINFORCED. CALL LIGHT IN REACH. WILL CONT TO MONITOR.
[2019-04-28 23:09] VITALS: BP 146/85
--- NOTE | 2019-04-28 23:12 | NUR ---
PATIENT RESTING IN BED WITH HOB ELEVATED. CONT TO HAE PRODUCTIVE COUGH. MEDICATED WITH CEPACOL LOZENGE FOR COUGH. O2 VIA NASAL CANNULA IN PLAE. TELE MONITOR IN PLACE. IV SITE TO LEFT FOREARM INTACT AND APPEARS HEALTHY AT THIS TIME. SAFETY PRECAUTIONS REINFORCED. ALL LIGHT IN REACH. WILL CONT TO MONITOR.
[2019-04-29 03:50] VITALS: BP 134/83
--- NOTE | 2019-04-29 04:13 | NUR ---
PATIENT RESTING IN BED WITH HOB ELEVATED AND O2 VIA NASAL CANNULA IN PLACE AT 2LPM. TELE MONITOR IN PLACE. CONT TO HAVE PRODUCTIVE COUGH. SAFETY PRECAUTIONS REINFORCED. CALL LIGHT IN REACH. WILL CONT TO MONITOR.
[2019-04-29 07:45] VITALS: BP 151/86
--- NOTE | 2019-04-29 08:14 | NUR ---
ASSESSMENT DONE. PT IS A&O X3. PT STATED HE HAS A HEADACHE. MEDICATED PT WITH MOTRIN. TELE IN PLACE. O2 2L VIA NC. PT STATED HE WANTS TO TAKE A SHOWER LATER. PT DENIES ANY OTHER NEEDS AT THIS TIME. CALL LIGHT IN REACH.
--- NOTE | 2019-04-29 09:50 | NUR ---
ED CALLED AND FAXED TELE READING ST [address] WITH SEVERAL PVC'S. PT IN THE BATHROOM. NOTIFIED ANALY MTZ.
[2019-04-29 10:50] VITALS: BP 151/86
--- NOTE | 2019-04-29 10:50 | NUR ---
ED HAD CALLED RE: TELE READING [address] 107 AND PVCS 54. VS OBTAIN 151/86, P- 90, AND 02 91. NO S/S OF DISTRESS NOTED. PT DENIES PAIN. PT REQUESTING A SANDWICH. NOTIFED ANALY MTZ RE: PT TELE READING AND VS. ORDERS RECEIVED.
--- NOTE | 2019-04-29 11:27 | NUR ---
ICE PACK PROVIDED FOR PT HEADACHE. NO S/S OF DISTRESS NOTED. TELE IN PLACE. PT DENIES ANY OTHER NEEDS. CALL LIGHT IN REACH.
[2019-04-29] MEDS ORDERED: PREDNISONE10 MG PO (12:06)
[2019-04-29] MEDS ORDERED: Levaquin PO (12:06)
--- NOTE | 2019-04-29 13:06 | NUR ---
Discharge instructions given. Patient verbalizes understanding of same. Discharged in stable condition via Wheelchair to Home with volunteer. All belongings sent with pt.
== END 2019-04-29 13:04 | disposition home or self-care (01) ==
LOC: ED 10:27 → ED-I 12:09 → MS2 12:21 → ED 12:21 → MS2 12:21
PROVIDERS: Family Medicine; ADMIT Internal Medicine; ATTEND Internal Medicine
DX: J44.1 Chronic obstructive pulmonary disease with (acute) exacerbation (principal); J96.12 Chronic respiratory failure with hypercapnia; J96.11 Chronic respiratory failure with hypoxia; I25.10 Atherosclerotic heart disease of native coronary artery without angina pectoris; I50.9 Heart failure, unspecified; E78.5 Hyperlipidemia, unspecified; F14.10 Cocaine abuse, uncomplicated; F15.90 Other stimulant use, unspecified, uncomplicated; F17.200 Nicotine dependence, unspecified, uncomplicated; Z99.81 Dependence on supplemental oxygen; Z87.01 Personal history of pneumonia (recurrent)
CPT/HCPCS: J1650

== ENCOUNTER 2019-05-30 08:43 | Observation (INO) | payer OTHER, MEDICARE, MEDICAID ==
[~2019-05-30] VITALS: Ht 172.7 cm; Wt 83.9 kg
[~2019-05-30 08:43] MED LIST changes: +HEARTBURN MEDICATION; +Levaquin PO
--- NOTE | 2019-05-30 08:53 | NUR ---
PT TO ROOM FOR EXAM
--- NOTE | 2019-05-30 09:40 | NUR ---
PATIENT REPORTS CHEST PAIN STARTING YESTERDAY, MIDSTERNAL RATES 8/10 UPON ONSET. DENIES ANY CURRENT CHEST PAIN. CRACKLES NOTED TO LLL ALL OTHER LUNG CHEEMA CLEAR. DRY COUGH NOTED. PATIENT REPORTS HISTORY OF COPD.
[2019-05-30 09:51] LABS: HEMATOCRIT 40.3 % (39.0-50.0); HEMOGLOBIN 13.4 g/dl (14.0-18.0); IMMATURE GRANULOCYTES 0.3 % (0.0-5.0); MEAN CELL VOLUME 90.8 fL CALC (80.0-100.0); MEAN CORPUSCULAR HGB 30.2 pG CALC (26.0-32.0); MEAN CORPUSCULAR HGB CONC 33.3 g/L CALC (32.0-36.0); NEUT# 2.11 thou/uL (1.82-7.42); RED BLOOD COUNT 4.44 mill/uL (4.70-6.10); RED CELL DISTRI WIDTH 14.3 % (11.5-15.5)
[2019-05-30 10:00] LABS: ALBUMIN 3.6 g/dL (3.2-5.0); ALKALINE PHOSPHATASE 71 u/l (38-126); AMYLASE 52 u/l (30-110); ANION GAP 10 (6-22 (CALC)); BILIRUBIN, TOTAL 0.5 mg/dL (0.0-1.4); BUN 17 mg/dL (8-23); BUN/CREATININE RATIO 17 (12-20 (CALC)); CARBON DIOXIDE 29 mmol/l (22-30); CHLORIDE 103 mmol/l (95-108); GFR > 60 ML/MIN (>=60 (CALC)); GFR FOR AFR.AMER. > 60 ML/MIN (>=60 (CALC)); LIPASE 96 u/l (23-300); POTASSIUM 4.2 mmol/l (3.5-5.1); SGOT/AST 24 u/l (19-48); SODIUM 138 mmol/l (137-146); TOTAL PROTEIN 6.7 g/dL (6.3-8.2)
[2019-05-30 10:13] LABS: MYOGLOBIN 51 ng/mL (0 - 121)
--- NOTE | 2019-05-30 10:20 | NUR ---
FLU AND STEP SAMPLES COLLECTED.
--- NOTE | 2019-05-30 10:30 | NUR ---
AT BEDSIDE TO DISCUSS RESULTS AND PLANS TO ADMIT. VERBAL UNDERSTANDING FROM PATIENT.
--- NOTE | 2019-05-30 10:56 | NUR ---
REPORT GIVEN TO CELENA ROSS.
--- NOTE | 2019-05-30 11:15 | NUR ---
TRANSFER TO ICU PENDING ADMIT ORDERS.
--- NOTE | 2019-05-30 11:45 | NUR ---
PATIENT ASSISTED TO SIDE OF BED TO USE URINAL.
--- NOTE | 2019-05-30 11:52 | NUR ---
PATIENT TRANSPORTED TO ICU VIA STRETCHER WITH MONITOR IN PLACE. PATIENT TRANSPORTED BY GURJIT Liu RN.
--- NOTE | 2019-05-30 11:55 | NUR ---
PT ARRIVED TO ICU3 BY STRETCHER WITH TELE. PT ABLE TO AMBULATE TO NEW BED. STATES "HE DOESNT NEED TO BE HERE".
[2019-05-30 12:00] VITALS: BP 152/88
--- NOTE | 2019-05-30 12:08 | NUR ---
PT VERY QUICKLY STARTED MAKING DEMANDS FOR "HOW HE LIKES THINGS WHILE HE'S HERE".
--- NOTE | 2019-05-30 12:09 | NUR ---
PT SITTING UP IN BED, EATING LUNCH.
--- NOTE | 2019-05-30 12:30 | NUR ---
PT PRESENTS TO THE ER TODAY AFTER HAVING EPIGASTRIC CP LAST NIGHT. PT ADMITS TO DOING AT LEAST SOME KIND OF CRACK COCAINE EVERY DAY; LAST USED LAST NIGHT. DENIES CP AT THIS TIME. DENIES N/V/D. ABD FIRM, OBESE, ACTIVE BS. STATES LARGE RUNNY BROWN BM LAST NIGHT. BREATHING IS EVEN/UNLABORED ON 2L NC; PT USES SAME AT HOME. WHEEZES HEARD THROUGHOUT LOBES WITH CRACKLES IN LLL. PT STATES HE SMOKES 1 PACK/DAY OF CIGARETTES. DRINKS 3 VODKA/DAY. PT USES GLASSES BUT DOES NOT HAVE THEM HERE. HAS DENTURES AT HOME BUT DOES NOT HAVE THEM HERE. DOES NOT USE HEARING AIDS. ALREADY HAD A FLU & PNA VACCINES. DENIES SKIN ALTERATIONS BUT DOES HAVE EXCEMA ON FEET & AROUND HAIRLINE. STRONG PULSES x4. NSR ON TELE. DENIES FALLS. LIVES WITH FRIENDS & IS TRANSPORTED. WAS RECENTLY D/C FROM THIS HOSPITAL. NO RELIGOUS PREFERENCE. NO HOME HEALTH. C/O LAMAR 10/22 THAT GOES AWAY WITH 800MG MOTRIN PRN q8H.
[2019-05-30] MEDS ORDERED: TRAZODONE50 MG PO (12:39)
[2019-05-30] MEDS ORDERED: MOTRIN800 MG PO (12:39)
[2019-05-30] MEDS ORDERED: GABAPENTIN100 MG PO (12:40)
[2019-05-30] MEDS ORDERED: OMEPRAZOLE20 MG PO (12:40)
[2019-05-30] MEDS ORDERED: PROSTATE (12:47)
--- NOTE | 2019-05-30 12:52 | NUR ---
LAB @BEDSIDE FOR REPEAT TROP
--- NOTE | 2019-05-30 13:19 | NUR ---
PT SLEEPING IN BED, HEARD SNORING FROM NURSES STATION.
--- NOTE | 2019-05-30 15:15 | NUR ---
BINH BOSS, @BEDSIDE WITH PT.
--- NOTE | 2019-05-30 15:35 | NUR ---
DR FORD & OTTO BECKFORD @BEDSIDE WITH PT.
[2019-05-30 16:00] VITALS: BP 148/87
--- NOTE | 2019-05-30 16:14 | NUR ---
PT AMBULATED TO TOILET FOR BM BUT ONLY HAD GAS. VOIDED 150cc YELLOW CLEAR URINE IN URINAL. PT CUSSING LOUDLY IN ROOM UNTIL PLACED BACK ON MONITORS BC "THAT BUZZING IS DRIVING HIM NUTS!".
--- NOTE | 2019-05-30 17:28 | NUR ---
RT @BEDSIDE FOR BREATHING TREATMENT.
[2019-05-30 19:19] LABS: CHOLESTEROL HDL RATIO 3.8 (<4.4 (CALC))
[2019-05-30 19:23] LABS: BARBITURATES NEGATIVE (NEGATIVE); COCAINE POSITIVE (NEGATIVE); METHADONE NEGATIVE (NEGATIVE); OXCYCODONE NEGATIVE (NEGATIVE); TETRAHYDROCANNABIONOL NEGATIVE (NEGATIVE); TRICYLIC ANTIDEPRESSANTS NEGATIVE (NEGATIVE)
[2019-05-30 19:38] VITALS: BP 141/80
--- NOTE | 2019-05-30 19:38 | NUR ---
PT. SLEEPING AWAKENED FOR VS; VSS. NO DISTRESS NOTED. O2 INFUSING PER NC PER ORDER. PT. DENIES PAIN. UPDATED ON POC. IV SITE PATENT AND SL TO LFA AND FLUSHES WELL, SL. PT. ON ELECTRIC CAR OPERATOR AND READING SR. ABD. SOFT AND REPORTS PASSING GAS, BUT NO BM TODAY. PRUNE JUICE GIVEN AND SNACK PROVIDED. INSTRUCTED TO CALL FOR ANY NEEDS. CALL LIGHT IS IN REACH. WILL CONTINUE TO MONITOR.
[2019-05-30 22:52] LABS: URINE BILIRUBIN - DIPSTICK NEGATIVE (NEGATIVE); URINE BLOOD DIPSTICK NEGATIVE (NEGATIVE); URINE COLOR YELLOW; URINE GLUCOSE - DIPSTICK NEGATIVE (NEGATIVE); URINE KETONE NEGATIVE (NEGATIVE); URINE LEUK ESTERASE NEGATIVE (NEGATIVE); URINE NITRITE - DIPSTICK NEGATIVE (Negative); URINE PROTEIN - DIPSTICK NEGATIVE (NEG-TRACE); URINE SPECIFIC GRAVITY 1.015; URINE UROBILINOGEN - DIPSTICK 0.2 E.U./dL (0.2)
--- NOTE | 2019-05-30 23:21 | NUR ---
SITTING UP IN BED WITH NO DISTRESS NOTED. DENIES PAIN. REQUESTING ICE CREAM AND PROVIDED. VSS. URINAL EMPTIED. 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 ENCOURAGED TO CALL FOR ANY NEEDS. CALL LIGHT IS IN REACH.
[2019-05-30 23:23] VITALS: BP 151/87
--- NOTE | 2019-05-31 | NUR ---
PT. MEDICATED WITH A ONE TIME DOSE OF MOTRIN FOR LAMAR 01/21 PER ORDER FROM ER PHYSICIAN. WILL REASSESS. DENIES FURTHER NEEDS. CALL LIGHT IS IN REACH.
--- NOTE | 2019-05-31 02:38 | NUR ---
PT. REPORTING SOB AND A COUGHING SPELL OCCURED, PRN NEB TX STARTED. WILL REASSESS. ENCOURAGED DEEP BREATHING. SPO2 92%.
[2019-05-31 03:31] VITALS: BP 151/90
--- NOTE | 2019-05-31 04:15 | NUR ---
URINAL EMPTIED; NO DISTRESS NOTED; DENIES NEEDS/PAIN. URINAL EMPTIED. VSS. CALL LIGHT IS IN REACH.
--- NOTE | 2019-05-31 06:23 | NUR ---
PT. SITTING UP IN BED WATCHING TV. NO DISTRESS NOTED. CALL LIGHT IS IN REACH.
--- NOTE | 2019-05-31 06:55 | NUR ---
RECVD REPORT FROM CELENA ROGERS @START OF SHIFT.
--- NOTE | 2019-05-31 07:28 | NUR ---
PT ASSISTED UP TO TOILET FOR BM- UNSUCCESSFUL. NOW SITTING UP IN BED, EATING BREAKFAST.
[2019-05-31 08:00] VITALS: BP 152/78
--- NOTE | 2019-05-31 08:03 | NUR ---
LAB @BEDSIDE FOR AM DRAW. DIETARY @BEDSIDE FOR DIETARY PREFERENCES.
[2019-05-31 08:17] LABS: HEMATOCRIT 41.8 % (39.0-50.0); HEMOGLOBIN 13.8 g/dl (14.0-18.0); IMMATURE GRANULOCYTES 0.5 % (0.0-5.0); MEAN CELL VOLUME 90.7 fL CALC (80.0-100.0); MEAN CORPUSCULAR HGB 29.9 pG CALC (26.0-32.0); NEUT# 2.48 thou/uL (1.82-7.42); RED BLOOD COUNT 4.61 mill/uL (4.70-6.10); RED CELL DISTRI WIDTH 14.2 % (11.5-15.5)
[2019-05-31 08:33] LABS: ALBUMIN 3.6 g/dL (3.2-5.0); ALKALINE PHOSPHATASE 63 u/l (38-126); ANION GAP 13 (6-22 (CALC)); BILIRUBIN, TOTAL 0.7 mg/dL (0.0-1.4); BUN 15 mg/dL (8-23); BUN/CREATININE RATIO 16 (12-20 (CALC)); CARBON DIOXIDE 24 mmol/l (22-30); CHLORIDE 102 mmol/l (95-108); CREATININE 0.9 mg/dL (0.7-1.3); GFR > 60 ML/MIN (>=60 (CALC)); GFR FOR AFR.AMER. > 60 ML/MIN (>=60 (CALC)); POTASSIUM 4.4 mmol/l (3.5-5.1); SGOT/AST 23 u/l (19-48); SODIUM 135 mmol/l (137-146); TOTAL PROTEIN 6.7 g/dL (6.3-8.2)
--- NOTE | 2019-05-31 09:21 | NUR ---
PT SLEEPING IN BED. WILL HOLD 0900 MEDS UNTIL PT AWAKENS. VSS.
--- NOTE | 2019-05-31 09:51 | NUR ---
ANALY MENJIVAR, @BEDSIDE ASSESSING PT; DISCUSSING ADDICTION.
--- NOTE | 2019-05-31 11:35 | NUR ---
PT TO ARU FOR A SHOWER WITH O2.
--- NOTE | 2019-05-31 11:48 | NUR ---
PT RETURNED TO ICU3 TO CLEAN LINENS & LUNCH.
[2019-05-31 12:00] VITALS: BP 146/85
--- NOTE | 2019-05-31 13:43 | NUR ---
DR FORD & OTTO BECKFORD @BEDSIDE DISCUSSING POC WITH PT. WILL DC. LEFT ROOM, PT STARTED CUSSING/YELLING AT HIM TO "MAKE IT QUICK". PT ADVISED BY ANALY THAT THEY HAVE TO ROUND ON PTS BEFORE WRITTING DC ORDERS.
--- NOTE | 2019-05-31 14:00 | NUR ---
PT IS SLEEPING IN BED, NO S/S OF DISTRESS. WILL CONTINUE TO MONITOR UNTIL DC ORDERS ARE WRITTEN.
--- NOTE | 2019-05-31 14:25 | NUR ---
RT @BEDSIDE FOR BREATHING TREATMENT.
--- NOTE | 2019-05-31 15:54 | NUR ---
UNABLE TO REACH CM FOR DC CLEARANCE AFTER MULTIPLE ATTEMPTS.
[2019-05-31 16:09] VITALS: BP 153/74
--- NOTE | 2019-05-31 16:45 | NUR ---
IV site discontinued, cath intact. No edema , no redness, voices no discomfort.
--- NOTE | 2019-05-31 16:46 | NUR ---
Patient decides to leave AMA. Multiple attempts made to ecourage patient to remain here for continued treatment. Explained to patient all risks of leaving against medical advice including . Pt verbalized understanding of all risks. Pt also encouraged to return to [facility] at any time, especially if symptoms continue or become worse. Pt verbalized understanding.
== END 2019-05-31 16:46 | disposition left against medical advice (07) | DRG 313 ==
LOC: ED 08:43 → ED-I 10:14 → ED 10:26 → ICU 10:27
PROVIDERS: Emergency Medicine; Nurse Practitioner Family; ADMIT Internal Medicine; ATTEND Internal Medicine
DX: R07.2 Precordial pain (principal); J43.9 Emphysema, unspecified; F14.10 Cocaine abuse, uncomplicated; I25.10 Atherosclerotic heart disease of native coronary artery without angina pectoris; I50.9 Heart failure, unspecified; E78.5 Hyperlipidemia, unspecified; N40.0 Benign prostatic hyperplasia without lower urinary tract symptoms; F19.10 Other psychoactive substance abuse, uncomplicated; F17.210 Nicotine dependence, cigarettes, uncomplicated; R06.89 Other abnormalities of breathing; R09.02 Hypoxemia

== ENCOUNTER 2019-09-14 23:47 | Inpatient (IN) | payer OTHER, MEDICARE, MEDICAID ==
[~2019-09-14] VITALS: Ht 172.7 cm; Wt 90.7 kg
[~2019-09-14 23:47] MED LIST changes: +GABAPENTIN100 MG PO; +PROSTATE
[2019-09-15] VITALS (9 sets, daily range): BP systolic 136–153; BP diastolic 74–87
[2019-09-15 00:59] LABS: HEMATOCRIT 44.2 % (39.0-50.0); HEMOGLOBIN 14.5 g/dl (14.0-18.0); IMMATURE GRANULOCYTES 0.1 % (0.0-5.0); MEAN CELL VOLUME 90.4 fL CALC (80.0-100.0); MEAN CORPUSCULAR HGB 29.7 pG CALC (26.0-32.0); MEAN CORPUSCULAR HGB CONC 32.8 g/L CALC (32.0-36.0); NEUT# 6.44 thou/uL (1.82-7.42); RED BLOOD COUNT 4.89 mill/uL (4.70-6.10); RED CELL DISTRI WIDTH 13.2 % (11.5-15.5)
[2019-09-15 01:00] LABS: URINE BILIRUBIN - DIPSTICK NEGATIVE (NEGATIVE); URINE BLOOD DIPSTICK TRACE-INTACT (NEGATIVE); URINE COLOR YELLOW; URINE GLUCOSE - DIPSTICK NEGATIVE (NEGATIVE); URINE KETONE NEGATIVE (NEGATIVE); URINE LEUK ESTERASE NEGATIVE (NEGATIVE); URINE NITRITE - DIPSTICK NEGATIVE (Negative); URINE PROTEIN - DIPSTICK NEGATIVE (NEG-TRACE); URINE SPECIFIC GRAVITY 1.015; URINE UROBILINOGEN - DIPSTICK 0.2 E.U./dL (0.2)
[2019-09-15 01:24] LABS: ALKALINE PHOSPHATASE 77 u/l (38-126); BUN 16 mg/dL (8-23); BUN/CREATININE RATIO 16 (12-20 (CALC)); CHLORIDE 97 mmol/l (95-108); GFR > 60 ML/MIN (>=60 (CALC)); GFR FOR AFR.AMER. > 60 ML/MIN (>=60 (CALC)); SGOT/AST 30 u/l (19-48); SODIUM 135 mmol/l (137-146)
[2019-09-15 01:25] LABS: ALBUMIN 4.4 g/dL (3.2-5.0); ANION GAP 13 (6-22 (CALC)); BILIRUBIN, TOTAL 1.1 mg/dL (0.0-1.4); CARBON DIOXIDE 29 mmol/l (22-30); TOTAL PROTEIN 8.1 g/dL (6.3-8.2)
[2019-09-15 02:07] LABS: BARBITURATES NEGATIVE (NEGATIVE); COCAINE POSITIVE (NEGATIVE); METHADONE NEGATIVE (NEGATIVE); OXCYCODONE NEGATIVE (NEGATIVE); TETRAHYDROCANNABIONOL NEGATIVE (NEGATIVE); TRICYLIC ANTIDEPRESSANTS NEGATIVE (NEGATIVE)
[2019-09-15 08:13] LABS: HEMATOCRIT 43.4 % (39.0-50.0); HEMOGLOBIN 14.4 g/dl (14.0-18.0); IMMATURE GRANULOCYTES 0.3 % (0.0-5.0); MEAN CELL VOLUME 89.5 fL CALC (80.0-100.0); MEAN CORPUSCULAR HGB 29.7 pG CALC (26.0-32.0); MEAN CORPUSCULAR HGB CONC 33.2 g/L CALC (32.0-36.0); NEUT# 5.87 thou/uL (1.82-7.42); RED BLOOD COUNT 4.85 mill/uL (4.70-6.10); RED CELL DISTRI WIDTH 13.1 % (11.5-15.5)
[2019-09-15 08:59] LABS: ALBUMIN 3.9 g/dL (3.2-5.0); ALKALINE PHOSPHATASE 73 u/l (38-126); ANION GAP 13 (6-22 (CALC)); BILIRUBIN, TOTAL 0.7 mg/dL (0.0-1.4); BUN 15 mg/dL (8-23); BUN/CREATININE RATIO 20 (12-20 (CALC)); CARBON DIOXIDE 27 mmol/l (22-30); CHLORIDE 102 mmol/l (95-108); CREATININE 0.8 mg/dL (0.7-1.3); GFR > 60 ML/MIN (>=60 (CALC)); GFR FOR AFR.AMER. > 60 ML/MIN (>=60 (CALC)); POTASSIUM 4.3 mmol/l (3.5-5.1); SGOT/AST 27 u/l (19-48); SODIUM 138 mmol/l (137-146); TOTAL PROTEIN 7.3 g/dL (6.3-8.2)
[2019-09-16] VITALS: BP 125/77
[2019-09-16 04:00] VITALS: BP 128/85
[2019-09-16 09:30] VITALS: BP 142/80
[2019-09-16 16:06] VITALS: BP 153/81
[2019-09-16 17:00] VITALS: BP 140/90
[2019-09-16 18:17] VITALS: BP 147/89
[2019-09-17 03:46] VITALS: BP 143/83
[2019-09-17 08:37] VITALS: BP 152/93
[2019-09-17] MEDS ORDERED: ZITHROMAX250 MG PO (09:48)
[2019-09-17] MEDS ORDERED: BIOTUSSIN PO (09:48)
[2019-09-17] MEDS ORDERED: PREDNISONE10 MG PO (09:48)
== END 2019-09-17 10:45 | disposition home or self-care (01) | DRG 190 ==
LOC: ED 23:47 → ED-I 09-15 01:27 → ED 09-15 01:54 → ICU 09-15 01:55 → MS2 09-16 16:43
PROVIDERS: Emergency Medicine; ADMIT Internal Medicine; ATTEND Internal Medicine
DX: J44.1 Chronic obstructive pulmonary disease with (acute) exacerbation (principal); J96.21 Acute and chronic respiratory failure with hypoxia; I25.10 Atherosclerotic heart disease of native coronary artery without angina pectoris; F14.10 Cocaine abuse, uncomplicated; E78.5 Hyperlipidemia, unspecified; F41.9 Anxiety disorder, unspecified; F17.200 Nicotine dependence, unspecified, uncomplicated; Z87.01 Personal history of pneumonia (recurrent); Z99.81 Dependence on supplemental oxygen
CPT/HCPCS: G0378

== ENCOUNTER 2020-06-20 15:08 | Emergency (ER) | payer OTHER, MEDICARE, MEDICAID ==
[~2020-06-20] VITALS: Ht 172.7 cm; Wt 90.9 kg
[~2020-06-20 15:08] MED LIST changes: +BIOTUSSIN PO
[2020-06-20] MEDS ORDERED: TAMSULOSIN HCL0.4 MG PO (15:55)
[2020-06-20] MEDS ORDERED: MOTRIN200 MG PO (15:56)
[2020-06-20] MEDS ORDERED: BUSPIRONE5 MG PO (15:58)
[2020-06-20 16:01] VITALS: BP 177/95
[2020-06-21] MEDS ORDERED: FLEXERIL5 M1 PO (12:33)
== END 2020-06-20 16:07 | disposition home or self-care (01) | DRG 552 ==
LOC: ED 15:08
DX: M54.6 Pain in thoracic spine (principal); M54.5 Low back pain; F41.9 Anxiety disorder, unspecified; F32.9 Major depressive disorder, single episode, unspecified; J44.9 Chronic obstructive pulmonary disease, unspecified; F17.200 Nicotine dependence, unspecified, uncomplicated; X50.0XXA Overexertion from strenuous movement or load, initial encounter

== ENCOUNTER 2020-06-21 12:04 | Emergency (ER) | payer OTHER, MEDICARE, MEDICAID ==
[~2020-06-21] VITALS: Ht 172.7 cm; Wt 100.0 kg
[~2020-06-21 12:04] MED LIST changes: +BUSPIRONE5 MG PO; +TAMSULOSIN HCL0.4 MG PO
[2020-06-21] MEDS ORDERED: FLEXERIL5 M1 PO (12:33)
[2020-06-21 12:50] VITALS: BP 150/96
== END 2020-06-21 12:50 | disposition home or self-care (01) | DRG 552 ==
LOC: ED 12:04
DX: M54.5 Low back pain (principal); J44.9 Chronic obstructive pulmonary disease, unspecified; F32.9 Major depressive disorder, single episode, unspecified; F41.9 Anxiety disorder, unspecified; F17.200 Nicotine dependence, unspecified, uncomplicated

== ENCOUNTER 2020-12-10 20:12 | Inpatient (IN) | payer OTHER, MEDICARE, MEDICAID ==
[~2020-12-10] VITALS: Ht 172.7 cm; Wt 90.7 kg
[~2020-12-10 20:12] MED LIST changes: +FLEXERIL5 M1 PO
--- NOTE | 2020-12-10 20:12 | NUR ---
PATIENT IMMEDIATELY TO ROOM 9 VIA EMS.
[2020-12-10 20:37] LABS: HEMATOCRIT 42.8 % (39.0-50.0); HEMOGLOBIN 13.8 g/dl (14.0-18.0); IMMATURE GRANULOCYTES 0.2 % (0.0-5.0); MEAN CELL VOLUME 95.7 fL CALC (80.0-100.0); MEAN CORPUSCULAR HGB 30.9 pG CALC (26.0-32.0); MEAN CORPUSCULAR HGB CONC 32.2 g/dL CAL (32.0-36.0); NEUT# 3.49 thou/uL (1.82-7.42); RED BLOOD COUNT 4.47 mill/uL (4.70-6.10); RED CELL DISTRI WIDTH 13.9 % (11.5-15.5)
--- NOTE | 2020-12-10 20:40 | NUR ---
PATIENT RQUESTIN GBIPAP TO BE TAKEN OFF. PLAN REVIEWED WITH PATIENT, STATES UNDERSTANDING. BIPAP READJUSTED FOR COMFORT.
[2020-12-10 20:49] LABS: ALBUMIN 3.8 g/dL (3.2-5.0); ALKALINE PHOSPHATASE 65 u/l (38-126); BUN 12 mg/dL (8-23); BUN/CREATININE RATIO 13 (12-20 (CALC)); CHLORIDE 96 mmol/l (95-108); CREATININE 0.9 mg/dL (0.7-1.3); GFR > 60 ML/MIN (>=60 (CALC)); GFR FOR AFR.AMER. > 60 ML/MIN (>=60 (CALC)); SGOT/AST 39 u/l (19-48); SODIUM 138 mmol/l (137-146); TOTAL PROTEIN 7.4 g/dL (6.3-8.2)
[2020-12-10 20:50] LABS: ANION GAP 8 (6-22 (CALC)); BILIRUBIN, TOTAL 0.4 mg/dL (0.0-1.4); CARBON DIOXIDE 37 mmol/l (22-30); POTASSIUM 3.4 mmol/l (3.5-5.1)
[2020-12-10 20:51] LABS: PROTHROMBIN TIME 9.8 SECONDS (9.0-12.5)
--- NOTE | 2020-12-10 21:15 | NUR ---
PATIENT RESTING, EYES CLOSED. NO DISTRESS AT THIS TIME. PATIENT STATES IS IS RELAXING AND DOING BETTER.
--- NOTE | 2020-12-10 22:03 | NUR ---
REPORT TO CHRISTIANO DALLAS
--- NOTE | 2020-12-10 22:53 | NUR ---
PT ASKING ABOUT WHEN BIPAP CAN COME OFF EDUCATED PT REGARDIN THE IMPORTANCE OF MAINTAINING IT FOR LONGER PERIODS OF TIME AND R.T. NOTIFIED WELL, PT VERBALIZES UNDERSTANDING.
--- NOTE | 2020-12-10 23:50 | NUR ---
PATIENT REMOVED FROM BIPAP AND PLACED ON 3L/NC PER PHYSICIAN ORDER. SPO2 96%.
--- NOTE | 2020-12-10 23:52 | NUR ---
BI PAP OFF AND PLACED PT ON 3L NC, WILL MONITOR TOLERANCE
--- NOTE | 2020-12-11 00:12 | NUR ---
PT RESTIONG TOOK POTASSIUM WITHOUT INCIDENT, REMAINS ON NC W/O INCIDENT.
--- NOTE | 2020-12-11 00:51 | NUR ---
MD AT BEDSIDE TO DISCUSS ADMISSION, COTINUES TO TOLERATE NC WITH NO SOB OR DISTRESS NOTED.
--- NOTE | 2020-12-11 01:52 | NUR ---
PT RESTING USED URINAL AND STILL SOB WITH MINIMAL EXERTION REMINDER TO REST WITH ACTIVITY AND DO PURSED LIP BREATHING, RECOVERS WITHOUT INCIDENT,
--- NOTE | 2020-12-11 02:29 | NUR ---
REPORT CALLED TO [facility] ON MED SURG.
--- NOTE | 2020-12-11 02:40 | NUR ---
PT TRANSPORTED TO MED SURG VIA STRETCHER WITH TELE IN PLACE, ALL BELONGINGS SENT WITH PT
[2020-12-11 02:50] VITALS: BP 171/92
[2020-12-11 04:00] VITALS: BP 156/92
--- NOTE | 2020-12-11 04:25 | NUR ---
PATIENT ARRIVED AT 0250 FROM ER. REPORT WAS CALLED PRIOR TO ARRIVAL.PATIENT IS ALERT AND ORIENTED. RESP LABORED AND SHALLOW ON 4L VIA NC. FALL AND SAFTEY PRECAUTIONS IN PLACE. IV SALINE LOCKED. PATIENT ORIENTED TO ROOM, CALL LIGHT, AND CALL LIGHT. PLAN OF CAR DISCUSSED. PATIENT INFROEMD TO CALL WITH ANY QUESTIONS OR CONCERNS.
[2020-12-11 07:31] VITALS: BP 161/96
--- NOTE | 2020-12-11 09:31 | NUR ---
PT AWAKE, ALERT, ORIENTED X 3. LUNGS COARSE THROUGHOUT WITH SOME WHEEZING, PT ON 5LPM NC. PT WITH PRODUCTIVE COUGH, SOMETIMES HAS DIFFICULTY CLEARING THICK PHLEGM.
--- NOTE | 2020-12-11 10:37 | NUR ---
PT. REQUESTED NEB TX. EARLY.
[2020-12-11 11:07] VITALS: BP 162/91
--- NOTE | 2020-12-11 13:49 | NUR ---
PT CONTINUES WITH PRODUCTIVE COUGH, SEEN SHORT OF BREATH FOLLOWING THESE EPISODES. PT WITH SOME ANXIETY, IS ABLE TO CALM HIMSELF WITH TIME.
[2020-12-11 14:50] VITALS: BP 167/86
--- NOTE | 2020-12-11 17:40 | NUR ---
PT PROVIDED YANKAUER FOR SUCTION OF PHLEGM HIS COUGH HAS CONTINUED. PT PROVIDED VISTARIL FOR ITCHING FROM PSORIASIS.
[2020-12-11 19:50] VITALS: BP 163/87
--- NOTE | 2020-12-11 20:00 | NUR ---
RECEIVED REPORT FROM NURSE RHODES PATIENT RESTING IN BED WATCHING TV, NOTED TO HAVE PRODUCTIVE COUGH THICK WHITE IN COLOR, HOOKED TO O2 @ 5LPM VIA NC, BREATHING SHALLOW, EXERTIONAL DYSPNEA NOTED, HOOKED TO TELEMETRY SR 91, LBM 12/10, ACTIVE BOWEL SOUNDS ABDOMEN DISTENDED FIRM, WITH SALINE LOCK ON RAC G 20 PATENT FLUSHES WELL, C/O ACHING HEADACHE WILL MEDICATE, ASSESSMENT DONE, CALL LIGHT AT REACH
[2020-12-12] VITALS (7 sets, daily range): BP systolic 131–169; BP diastolic 78–96
--- NOTE | 2020-12-12 00:25 | NUR ---
PATIENT APPEARS TO BE SLEEPING WITH EYES CLOSED, BREATHING UNLABORED AT THIS TIME, REMAINS ON O2 @ 4LPM VIA NC CALL LIGHT AT REACH.
--- NOTE | 2020-12-12 03:58 | NUR ---
PATIENT APPEARS TO BE SLEEPING WITH EYES CLOSED, BREATHING UNLABORED, REMAINS ON O2 @ 5LPM VIA NC CALL LIGHT AT REACH.
[2020-12-12 05:38] LABS: HEMATOCRIT 43.2 % (39.0-50.0); HEMOGLOBIN 13.8 g/dl (14.0-18.0); MEAN CELL VOLUME 98.2 fL CALC (80.0-100.0); MEAN CORPUSCULAR HGB 31.4 pG CALC (26.0-32.0); MEAN CORPUSCULAR HGB CONC 31.9 g/dL CAL (32.0-36.0); RED BLOOD COUNT 4.4 mill/uL (4.70-6.10); RED CELL DISTRI WIDTH 13.5 % (11.5-15.5)
[2020-12-12 05:58] LABS: ALBUMIN 3.4 g/dL (3.2-5.0); ALKALINE PHOSPHATASE 55 u/l (38-126); ANION GAP 6 (6-22 (CALC)); BILIRUBIN, TOTAL 0.3 mg/dL (0.0-1.4); BUN 21 mg/dL (8-23); BUN/CREATININE RATIO 21 (12-20 (CALC)); CARBON DIOXIDE 37 mmol/l (22-30); CHLORIDE 101 mmol/l (95-108); GFR > 60 ML/MIN (>=60 (CALC)); GFR FOR AFR.AMER. > 60 ML/MIN (>=60 (CALC)); SGOT/AST 28 u/l (19-48); SODIUM 140 mmol/l (137-146); TOTAL PROTEIN 6.6 g/dL (6.3-8.2)
[2020-12-12 06:02] LABS: POTASSIUM 4.4 mmol/l (3.5-5.1)
--- NOTE | 2020-12-12 07:00 | NUR ---
PT REPORT RECEIVED FROM NIGHT NURSEFRANK
--- NOTE | 2020-12-12 08:00 | NUR ---
PT WAS FOUND RESTING IN BED IN SEMI-FOWLERS POSITION;PT IS A&OX3;VS AND ASSESSMENT WERE COMPLETED;PT HAS NO REPORTS OF PAIN AT THIS TIME;HEART SOUNDS ARE REGULAR IN RATE AND RHYTHM;TELE IS IN PLACE;LUNG SOUNDS ARE COARSE AND DIMINISHED IN ALL LOBES;RESPIRATIONS ARE LABORED ON O2@4L VIA NC;EXERTIONAL SOB AND PRODUCTIVE COUGH NOTED;PT HAS A YANKAUER AT BEDSIDE FOR SUCTIONING PHLEGM;#20G IV IN RAC IS SL, PATENT AND FREE OF COMPLICATIONS AT THIS TIME;SAFETY PRECAUTIONS IN PLACE;CALL LIGHT WITHIN REACH;BED IN LOWEST POSITION;PT ENCOURGAGED TO CALL WITH ANY NEEDS OR CONCERNS;WILL CONTINUE TO MONITOR.
--- NOTE | 2020-12-12 08:15 | NUR ---
PT TRANSPORTED TO RADIOLOGY FOR CHEST X-RAY IN STABLE CONDITION VIA WC WITH O2 ACCOMPANIED BY STAFF
--- NOTE | 2020-12-12 08:23 | NUR ---
PT RETURNED FROM RADIOLOGY VIA WC WITH O2 IN STABLE CONDITION ACCOMPANIED BY STAFF
--- NOTE | 2020-12-12 11:42 | NUR ---
PT O2 WAS TITRATED UP TO 5L VIA NC DUE TO EXERTIONAL SOB AFTER AMBULATING;PT IS REPORTING IT BEING MORE DIFFICULT TO BREATHE THAN NORMAL;O2 SAT WAS CHECKED AND FOUND TO BE 94%;WILL CONTINUE TO MONITOR.
--- NOTE | 2020-12-12 12:00 | NUR ---
PT WAS FOUND SITTING UP IN BED EATING LUNCH;PT CONTINUES TO HAVE LABORED BREATHING WITH EXERTIONAL SOB;PT O2 SATS REMAIN 95-96% ON O2@5L VIA NC;TELE IN PLACE;SAFETY PRECAUTIONS IN PLACE;CALL LIGHT WITHIN REACH;BED IN LOWEST POSITION;WILL CONTINUE TO MONITOR.
--- NOTE | 2020-12-12 16:00 | NUR ---
PT WAS FOUND NAPPING IN BED IN HIGH FOWLERS POSITION;PT AROUSED TO VERBAL STIMULI;PT HAS NO REPORTS OF PAIN AT THIS TIME;TELE IS IN PLACE;O2@5L VIA NC IS IN PLACE;#20G IV IN RAC IS SL, PATENT AND APPEARS FREE OF COMPLICATIONS AT THIS TIME;SAFETY PRECAUTIONS IN PLACE;CALL LIGHT WITHIN REACH;BED IN LOWEST POSITION;WILL CONTINUE TO MONITOR.
--- NOTE | 2020-12-12 19:03 | NUR ---
REPORT FROM KAYLA DALLAS. ASSUMED PT CARE.
--- NOTE | 2020-12-12 19:12 | NUR ---
PT NOTED SITTING UP IN BED. ALERT AND ORIENTED X3. PT APPEARS TO BE SOB, STATES HE JUST AMBULATED TO BATHROOM AND BACK. ENCOURAGED DEEP BREATHING EXERCISES. O2 @ 5L/M VIA NC. PT DENIES ANY PAIN OR DISCOMFORT AT THIS TIME. NO CURRENT WANTS OR NEEDS. DISCUSSED POC. PT VERBALIZED UNDERSTANDING. CALL LIGHT WITHIN REACH. WILL CONTINUE TO MONITOR.
--- NOTE | 2020-12-12 19:58 | NUR ---
PT SITTING UP IN BED WATCHING TV. PT MORE RELAXED NOW, NO LONGER APPEARS SOB. WHEEZING NOTED IN UPPER AND LOWER LOBES BILATERALLY. NO APPARENT DISTRESS NOTED. O2 REMAINS @ 5L/M VIA NC. SNACK PROVIDED UPON REQUEST. CALL LIGHT WITHIN REACH. WILL CONTINUE TO MONITOR.
--- NOTE | 2020-12-12 23:37 | NUR ---
PT RESTING IN BED WITH EYES CLOSED. NO APPARENT DISTRESS NOTED. RESPIRATIONS EVEN AND UNLABORED. O2 @ 5L/M VIA NC. CALL LIGHT WITHIN REACH. WILL CONTINUE TO MONITOR.
[2020-12-13] VITALS (8 sets, daily range): BP systolic 136–169; BP diastolic 71–95
--- NOTE | 2020-12-13 02:41 | NUR ---
PT C/O OF HEADACHE. MEDICATED WITH PRN APAP AT THIS TIME. PT DENIES ANY OTHER CURRENT WANTS OR NEEDS. CALL LIGHT WITHIN REACH. WILL CONTINUE TO MONITOR.
--- NOTE | 2020-12-13 07:00 | NUR ---
PATIENT LAYING IN BED AT THIS TIME. 02 ON AT 5 LITERS. ORAL HYGIENIST DONE SEE INTERVENITONS. LUNG CHEEMA ARE COARSE AND WHEEZING NOTED THROUGHOUT ALL LUNG CHEEMA. RESPIRATIONS ARE LABORED AT 22 AND SPO2 IS 94% AT THIS TIME. PATIENT DOES EXHIBIT A PRODUCTIVE COUGH WITH THICK WHITE MUCUS. PATIENT HAS SUCTION AT BEDSIDE IF NEEDED. SIDERAILS ARE UP X 2 PATIENT IS ALERT AND ORIENTED AT THIS TIME. CALL LIGHT AND PERSONAL ITEMS WITHIN REACH.
--- NOTE | 2020-12-13 12:00 | NUR ---
PATIENT SITTING UP AT BEDSIDE AT THIS TIME. PATEINT GIVEN NEW MEDICATION EDCATIOIN AT THIS TIME. PATIENT WAS STARTED ON NORVAC 5MG FOR ELEVATED BLOOD PRESSURE CONTROL. PATIENT VERBALIZED UNDERSTANDING OF MEDICATION AND ADVERSE REACTIONS. PATIENT REMAINS ON 02 AT 5 LITERS. SIDERAILS ARE UP X 2 CALL LIGHT AND PERSONAL ITEMS WITHIN REACH.
--- NOTE | 2020-12-13 13:31 | NUR ---
PATIENT BP RE-TAKEN AND WAS 159/93 AFTER DOSE OF NORVASC 5MG. WILL CONTINUE TO MONITOR.
--- NOTE | 2020-12-13 16:00 | NUR ---
PAITENT RESITNG IN BED AT THIS TIME. DENIES ANY NEEDS AND OR PAIN. SIDERAILS ARE UP X2 CALL LIGHT IS WITHIN REACH. 02 REMAINS ON AT 5 LITERS. TELE ON AND BEING MONITORED BY ED.
--- NOTE | 2020-12-13 19:50 | NUR ---
PT ASSESSMENT COMPLETED AT THIS TIME. RESP ADMINISTERED DUONEB TREATMENT. WHEEZING LUNG SOUNDS AUSCULTATED THROUGHOUT. PT DENIES PAIN OR ANY OTHER DISTRESSES AT THIS TIME. OXYGEN NC IS ON SET AT 3L, OXYGEN SAT LEVEL ASSESSED AT THIS TIME AT 93% HOLDING. CALL LIGHT AT SIDE AND PT ENCOURAGED TO CALL NEEDS ARISE.
--- NOTE | 2020-12-13 22:40 | NUR ---
ED CALLED TO REPORT PT HAD A 7 BEAT RUN OF V-TACH. PT DENIES DISTRESS, PAIN, SOB OR PALPATATIONS. V/S STABLE AT THIS TIME.
--- NOTE | 2020-12-14 04:53 | NUR ---
PT MEDICATED ORDERS PROVIDE FOR HEADACHE AND IV ANTIBIOTIC THERAPY.
[2020-12-14 04:54] VITALS: BP 168/91
--- NOTE | 2020-12-14 05:56 | NUR ---
PT AMBULATED TO RESTROOM WITH NC OXYGEN ON. BECOMES SOB UPON AMBULATION, OXYGEN SAT 93% AT THIS TIME UPON AMBULATING WITH 3L [address]
[2020-12-14 06:22] LABS: HEMOGLOBIN 14.6 g/dl (14.0-18.0); MEAN CELL VOLUME 99.4 fL CALC (80.0-100.0); MEAN CORPUSCULAR HGB 30.9 pG CALC (26.0-32.0); MEAN CORPUSCULAR HGB CONC 31.1 g/dL CAL (32.0-36.0); RED BLOOD COUNT 4.73 mill/uL (4.70-6.10); RED CELL DISTRI WIDTH 13.4 % (11.5-15.5)
[2020-12-14 06:42] LABS: BUN 23 mg/dL (8-23); BUN/CREATININE RATIO 24 (12-20 (CALC)); CHLORIDE 94 mmol/l (95-108); CREATININE 0.9 mg/dL (0.7-1.3); GFR > 60 ML/MIN (>=60 (CALC)); GFR FOR AFR.AMER. > 60 ML/MIN (>=60 (CALC)); MAGNESIUM 2.5 mg/dL (1.6-2.3); POTASSIUM 4.5 mmol/l (3.5-5.1); SODIUM 139 mmol/l (137-146)
[2020-12-14 06:50] LABS: ANION GAP 10 (6-22 (CALC))
[2020-12-14 06:57] LABS: CARBON DIOXIDE 40 mmol/l (22-30)
--- NOTE | 2020-12-14 07:00 | NUR ---
REPORT RECEIVED FROM CELENA FLOYD
[2020-12-14 08:55] VITALS: BP 145/78
--- NOTE | 2020-12-14 09:00 | NUR ---
PT RESTING IN SEMI FOWLERS POSITION,A&O X3;VS OBTAINED AND ASSESSMENT COMPLETED;PT DENIES ANY CURRENT PAIN OR DISCOMFORTS,PAIN SCALE AND REPORTING EDUCATED;RESPIRATIONS SHALLOW ON O2 @3L VIA NC, PT IS DEPENDENT ON 2L AT HOME;WHEEZY LUNG SOUNDS NOTED WITH NON-PRODUCTIVE COUGH;ABDOMEN DISTENDED/FIRM ON PALPATION AND ACTIVE IN ALL 4 QUADRANTS;WEAK PEDAL PULSES;SKIN INTACT;TELE MONITORING IN PLACE;#20G TO RAC FLUSHED AND PATENT,SITE APPEARS HEALTHY;PT DENIES ANY ADDITIONAL NEEDS AT THIS TIME AND IS ENCOURAGED TO CALL FOR ASSISTANCE IF NEEDED;FALL PRECAUTIONS IN PLACE WITH BED IN THE LOWEST POSITION AND CALL LIGHT IN REACH;WILL CONTINUE TO MONITOR
--- NOTE | 2020-12-14 09:46 | NUR ---
AT BEDSIDE DISCUSSING POC.
[2020-12-14 10:57] VITALS: BP 155/90
--- NOTE | 2020-12-14 11:42 | NUR ---
#20G TO RAC REMOVED WITH CATHETER INTACT DUE TO INFILTRATION.
--- NOTE | 2020-12-14 11:50 | NUR ---
PT RESTING IN SEMI FOWLERS POSITION;RESPIRATIONS LABORED ON O2 @ 3L VIA NC;#22G STARTED TO LAC ON 2ND ATTEMPT BY EDWARD JORDAN;TELE MONITORING IN PLACE;PT DENIES ANY ADDITIONAL NEEDS AND IS ENCOURAGED TO CALL FOR ASSISTANCE IF NEEDED;CALL LIGHT IN REACH;WILL CONTINUE TO MONITOR
--- NOTE | 2020-12-14 12:15 | NUR ---
RT AT BEDSIDE ADMINISTERING BREATHING TX.
[2020-12-14 15:05] VITALS: BP 154/90
--- NOTE | 2020-12-14 16:00 | NUR ---
PT RESTING IN SEMI FOWLERS POSITION AFTER SHOWER;RESPIRATIONS REMAIN LABORED WITH ABDOMINAL GRUNTING AT THIS TIME;PT DENIES ANY CURRENT PAIN OR DISCOMFORTS;TELE MONITORING IN PLACE;IV SITE TO LAC REMAINS PATENT;PT ENCOURAGED TO CALL FOR ASSISTANCE IF NEEDED;CALL LIGHT IN REACH;WILL CONTINUE TO MONITOR
--- NOTE | 2020-12-14 17:32 | NUR ---
PT MEDICATED WITH PRN TYLENOL 650MG PO FOR HEADACHE PAIN RATING 7/10 ON THE PAIN SCALE,WILL CONTINUE TO MONITOR FOR EFFECTIVENESS
[2020-12-14 19:00] VITALS: BP 145/93
[2020-12-15] VITALS: BP 132/86
--- NOTE | 2020-12-15 01:53 | NUR ---
PATIENT IS ALERT AND ORIENTED X3. ABLE TO MAKE NEEDS KNOWN. RESPIRATIONS LABORED. LUNG SOUNDS WHEEEZY THROUGHOUT. ON TELEMETRY. DENIES PAIN. BS +4 ALL FOUR QUADRANTS. VAD RAC S/L. DRESSNG CLEAND DRY AND INTACT. RENEWED ICE WATER, GAVE ICE CREAM DURING MEDICATION PASS. NIRAV CRACKERS GIVEN AFTER ZOSYN COMPLETED. CURRENTLY RESTING IN BED WITH EYES CLOSED. NO ACUTE DISTRESS NOTED. FALL PRECAUTIONS MAINTAINED. BED IN LOW POSITION. CALL LIGHT WITHIN REACH.
[2020-12-15 04:00] VITALS: BP 143/81
[2020-12-15 06:31] LABS: ANION GAP 7 (6-22 (CALC)); BUN 22 mg/dL (8-23); BUN/CREATININE RATIO 21 (12-20 (CALC)); CARBON DIOXIDE 38 mmol/l (22-30); CHLORIDE 95 mmol/l (95-108); GFR > 60 ML/MIN (>=60 (CALC)); GFR FOR AFR.AMER. > 60 ML/MIN (>=60 (CALC)); POTASSIUM 3.9 mmol/l (3.5-5.1); SODIUM 136 mmol/l (137-146)
--- NOTE | 2020-12-15 06:32 | NUR ---
PT AWAKE, IN BED WATCHING TELEVISION. NO ACUTE DISTRESS NOTED. RECREATION PROGRAM COORDINATOR TO MONITOR.
--- NOTE | 2020-12-15 07:00 | NUR ---
RECIEVED REPORT FROM CELENA WOMACK.
[2020-12-15 08:01] VITALS: BP 154/89
--- NOTE | 2020-12-15 08:01 | NUR ---
PT RESTING IN SEMI FOWLERS POSITION. PT IS A/O X3. ASSESSMENT AND VITALS COMPLETED. BP 154/89, HR 85, O2 92% ON 3L NC. RESPIRATIONS ARE LABORED. EX WHEEZING NOTED WHEN ALSCULTATION OF LUNGS. HEART RHYTHM NORMAL WITH TELE IN PLACE. BOWEL SOUNDS ARE ACTIVE. RADIAL AND PEDAL PULSES STRONG. #22G IN LAC FLUSHED, REDNESS NOTED BUT PT DENIES ANY PAIN AND HAS GOOD BLOOD RETURN. REDNESS NOTED TO BUTTOCKS. PT C/O OF 4/10 HEAD ACHE AND ITCHING. PT TO BE MEDICATED PER EMAR. PT DENIES OF ANY NEEDS AT THIS TIME. ALL SAFTEY PRECAUTIONS ARE IN PLACE WITH CALL LIGHT IN REACH. ENCOURAGED PT TO CALL FOR ASSISTANCE. PT VERBLAIZED UNDERSTANDING. WILL CONTINUE TO MONITOR.
--- NOTE | 2020-12-15 09:25 | NUR ---
DR FORD AT BEDSIDE
[2020-12-15 11:30] VITALS: BP 146/79
--- NOTE | 2020-12-15 12:00 | NUR ---
RT AT BEDSIDE
--- NOTE | 2020-12-15 12:05 | NUR ---
PT NICCI NEB THERAPY WELL. PT I NBED, WATCHING TELEVISION, SITTING AT SIDE. NAD. VSS. QLIKVIEW DEVELOPER TO MONITOR.
--- NOTE | 2020-12-15 12:37 | NUR ---
PT SLEEPING IN SEMI FOWLERS POSITION. RESPIRATIONS ARE SHALLOW ON 3L NC.#22G IN LAC REMAINS IN PLACE. TELE MONITORING IN PLACE. PT DENIES OF ANY PAINS OR DISCOMFORTS AT THIS TIME. ALL SAFETY PRECAUTIONS ARE IN PLACE WITH CALL LIGHT IN REACH. WILL CONTINUE TO MONITOR.
[2020-12-15 14:55] VITALS: BP 136/75
--- NOTE | 2020-12-15 15:16 | NUR ---
I.S PROVIDED TO PT. PT EDUCATED ON USAGE. PT ABLE TO REACH 1000.
--- NOTE | 2020-12-15 15:43 | NUR ---
ULTRASOUND CONTACT. MAINTENANCE GROUNDSKEEPER INFORMED THE ECHO WILL NOT BE DONOE TODAY DUE TO TECH HAVING EYE SURGERY. PT NOTIFIED.
--- NOTE | 2020-12-15 16:11 | NUR ---
PT RESTING IN SEMI FOWLERS POSITION. RESPIRATIONS ARE SHALLOW ON 3L NC. TELE MONITORING IN PLACE. #22G IN LAC REMAINS IN PLACE. EXTRA URINAL GIVEN TO PT. PT DENIES OF ANY PAINS OR NEEDS. JUST C/O ON HOW MUCH HE IS URINATING. I.S AT BEDSIDE. PT INSTRUCTED ON USAGE. ALL SAFETY PRECAUTIONS ARE IN PLACE WITH CALL LIGHT IN REACH. WILL CONTINUE TO MONITOR.
[2020-12-15 19:00] VITALS: BP 127/89
--- NOTE | 2020-12-15 20:00 | NUR ---
PHYSICAL ASSESMENT COMPLETE. PT CURRENTLY DENIES PAIN OR DISCOMFORT. SCHEDULED MEDICATIONS AND PRN MEDICATION ADMINISTERED, SEE E-MAR. PT DENIES ANY NEEDS AT THIS TIME. PLAN OF CARE REVIEWED, PT DENIES QUESTIONS, VERBALIZES UNDERSTANDING. ITEMS WITHIN REACH, BED LOCKED IN LOW POSITION W/ BEDRAILS UP X2. CALL ARCHER WITHIN REACH, AGREES TO CALL PRN.
[2020-12-16] VITALS: BP 137/86
--- NOTE | 2020-12-16 00:35 | NUR ---
PT LAYING IN BED WITH EYES CLOSED, APPEARS TO BE SLEEPING. RESPITORY THERAPY PROVIDING NEB TREATMENT. ITEMS REMAIN WITHIN REACH, CALL ARCHER REMAINS WITHIN REACH. BED REMAINS LOCKED AND IN LOW POSITION WITH BEDRAILS UP X2. WILL CONTINUE TO MONITOR.
--- NOTE | 2020-12-16 03:45 | NUR ---
PT RESTING IN BED, NO SIGNS OF DISTRESS NOTED, RESP EVEN AND UNLABORED. PT VOICES NO NEEDS OR COMPLAINTS AT THIS TIME. CALL LIGHT IN REACH, CONTINUE TO MONITOR.
[2020-12-16 04:00] VITALS: BP 114/68
[2020-12-16 04:51] LABS: HEMATOCRIT 45.1 % (39.0-50.0); HEMOGLOBIN 14.4 g/dl (14.0-18.0); MEAN CELL VOLUME 96.2 fL CALC (80.0-100.0); MEAN CORPUSCULAR HGB 30.7 pG CALC (26.0-32.0); MEAN CORPUSCULAR HGB CONC 31.9 g/dL CAL (32.0-36.0); RED BLOOD COUNT 4.69 mill/uL (4.70-6.10); RED CELL DISTRI WIDTH 13.2 % (11.5-15.5)
[2020-12-16 05:14] LABS: BUN 30 mg/dL (8-23); BUN/CREATININE RATIO 28 (12-20 (CALC)); CHLORIDE 92 mmol/l (95-108); CREATININE 1.1 mg/dL (0.7-1.3); GFR > 60 ML/MIN (>=60 (CALC)); GFR FOR AFR.AMER. > 60 ML/MIN (>=60 (CALC)); POTASSIUM 3.8 mmol/l (3.5-5.1); SODIUM 136 mmol/l (137-146)
[2020-12-16 05:20] LABS: ANION GAP 7 (6-22 (CALC))
[2020-12-16 05:25] LABS: CARBON DIOXIDE 41 mmol/l (22-30)
--- NOTE | 2020-12-16 06:24 | NUR ---
PT AWAKE, IN BED WATCHING TELEVISION. NAD. VSS. TEASEL SETTER TO MONITOR.
[2020-12-16 07:00] VITALS: BP 137/87
--- NOTE | 2020-12-16 07:00 | NUR ---
PATIENT LAYING IN BED AT THIS TIME. DENIES ANY PAIN SUPERVISOR BLEACH PLANT DONE SEE INTERVENTIONS. PATIENT LUNG CHEEMA REMAIN DIMINISHED AND PATIENT EXHIBITS WHEEZES UPON EXEERTION. PATIENT DOES HAVE MOIST COUGH AND WHITE IN COLOR. PATIENT ON 3 LITERS OF 02 AND SPO2 IS 92%. PATIENT EDUCATED ON INSENTIVE SPIROMETER AND DID RETURN DEMONSTRATION AT THIS TIME.TELE MONITOR IN PLACE AND BEING MONITORED BY ED. SIDERAILS ARE UP CALL LLIGHT IS WITHIIN REACH.
--- NOTE | 2020-12-16 08:45 | NUR ---
ED CALLED TO STATED THAT PATIENT HAD A 9 BEAT RUN OF V-TACH. PATIENT SITTING AT BEDSIDE AND IS A SYMPTOMATIC AND DENIES ANY PAIN OR DISTRESS. THIS NURSE OBTAINED A COPY OF THE STRIP AND WAS GIVEN TO LISA ESTEVEZ FOR REVIEW. NO ORDERS GIVEN AT THIS TIME.
[2020-12-16 10:48] VITALS: BP 119/73
--- NOTE | 2020-12-16 11:11 | NUR ---
ED CALLED AND STATED PATIENT HAD A 16 BEAT RUN OF V-TACH AT THIS TIME. PROVIDER MADE AWARE AND NO ORDERS GIVEN. PATIENT IS ASYMPTOMATIC AT THIS TIME STATES HE HIS NOT HAVING ANY CHEST PAIN AND FEELS "OKAY". WILL CONTINUE TO MONITOR.
--- NOTE | 2020-12-16 11:59 | NUR ---
PATIENT SITTING UP IN CHAIR AT THIS TIME O2 REMAINS ON AT 3 LITERS. PATIENT THIERNO ANY PAIN OR NEEDS AT THIS TIME CALL LIGHT IS WITHINN REACH.
[2020-12-16 15:04] VITALS: BP 127/83
[2020-12-16] MEDS ORDERED: AMOX/K CLAV875 M1 PO (15:08)
[2020-12-16] MEDS ORDERED: PREDNISONE10 MG PO (15:11)
[2020-12-16] MEDS ORDERED: LASIX 20 MG TAB20 MG PO (15:11)
--- NOTE | 2020-12-16 15:40 | NUR ---
PATIENT D/C AT THIS TIME NADER VERBALIZES UNDERSTANDING OF D/C INSTRUCTIONS. ED NOTIFIED OF PATIENT TELE BEING REMOVED AT THIS TIME. (NATALIIA DALLAS NOTIFIED). IV REMOVED AT THIS TIME NO SIGNS OR SYMPTOMS OF IV SITE INFECTION.
--- NOTE | 2020-12-16 15:56 | NUR ---
Discharge instructions given. Patient verbalizes understanding of same. Discharged in stable condition via Wheelchair to Home with family. All belongings sent with pt.
== END 2020-12-16 15:58 | disposition home or self-care (01) | DRG 190 ==
LOC: ED 20:12 → ED-I 12-11 01:39 → ED 12-11 01:57 → MS2 12-11 01:58
PROVIDERS: Emergency Medicine; Nurse Practitioner; Nurse Practitioner Family; ADMIT Internal Medicine; ATTEND Internal Medicine
DX: J44.1 Chronic obstructive pulmonary disease with (acute) exacerbation (principal); J96.91 Respiratory failure, unspecified with hypoxia; I50.32 Chronic diastolic (congestive) heart failure; E87.2 Acidosis; I11.0 Hypertensive heart disease with heart failure; R07.9 Chest pain, unspecified; F14.10 Cocaine abuse, uncomplicated; I25.10 Atherosclerotic heart disease of native coronary artery without angina pectoris; E78.5 Hyperlipidemia, unspecified; N40.0 Benign prostatic hyperplasia without lower urinary tract symptoms; F32.9 Major depressive disorder, single episode, unspecified; F41.9 Anxiety disorder, unspecified; F17.200 Nicotine dependence, unspecified, uncomplicated; Z87.01 Personal history of pneumonia (recurrent); Z20.822 Contact with and (suspected) exposure to COVID-19; Z99.81 Dependence on supplemental oxygen
CPT/HCPCS: J1650

== ENCOUNTER 2021-03-26 08:32 | Emergency (ER) | payer MEDICARE, MEDICAID ==
[~2021-03-26] VITALS: Ht 172.7 cm; Wt 65.0 kg
[~2021-03-26 08:32] MED LIST changes: +AMOX/K CLAV875 M1 PO; +LASIX 20 MG TAB20 MG PO
[2021-03-26] MEDS ORDERED: HYDROCO/APAP1 TA9 PO (09:39)
[2021-03-26 09:42] VITALS: BP 184/72
== END 2021-03-26 09:52 | disposition home or self-care (01) ==
LOC: ED 08:32
PROC: 2W3DX1Z Immobilization of Left Lower Arm using Splint (ICD-10-PCS; principal; 2021-03-26)
DX: S52.502A Unspecified fracture of the lower end of left radius, initial encounter for closed fracture (principal); I10 Essential (primary) hypertension; J44.9 Chronic obstructive pulmonary disease, unspecified; F32.9 Major depressive disorder, single episode, unspecified; F41.9 Anxiety disorder, unspecified; F17.200 Nicotine dependence, unspecified, uncomplicated; W19.XXXA Unspecified fall, initial encounter; Y92.009 Unspecified place in unspecified non-institutional (private) residence as the place of occurrence of the external cause

== ENCOUNTER 2021-12-18 15:24 | Inpatient (IN) | payer MEDICARE, MEDICAID ==
[~2021-12-18] VITALS: Ht 172.7 cm; Wt 92.0 kg
[2021-12-18] VITALS (27 sets, daily range): BP systolic 113–173; BP diastolic 68–119
[~2021-12-18 15:24] MED LIST changes: +HYDROCO/APAP1 TA9 PO
[2021-12-18 16:19] LABS: HEMATOCRIT 48.8 % (39.0-50.0); HEMOGLOBIN 15.8 g/dl (14.0-18.0); IMMATURE GRANULOCYTES 0.2 % (0.0-5.0); MEAN CELL VOLUME 96.8 fL CALC (80.0-100.0); MEAN CORPUSCULAR HGB 31.3 pG CALC (26.0-32.0); MEAN CORPUSCULAR HGB CONC 32.4 g/dL CAL (32.0-36.0); NEUT# 4.35 thou/uL (1.82-7.42); RED BLOOD COUNT 5.04 mill/uL (4.70-6.10); RED CELL DISTRI WIDTH 13.1 % (11.5-15.5)
[2021-12-18 16:37] LABS: ALBUMIN 3.9 g/dL (3.2-5.0); ANION GAP 11 (6-22 (CALC)); BUN 13 mg/dL (8-23); BUN/CREATININE RATIO 14 (12-20 (CALC)); CARBON DIOXIDE 36 mmol/l (22-30); CHLORIDE 96 mmol/l (95-108); CREATININE 0.9 mg/dL (0.7-1.3); GFR FOR AFR.AMER. > 60 ML/MIN (>=60 (CALC)); GFR OTHER RACES > 60 ML/MIN (>=60 (CALC)); POTASSIUM 3.5 mmol/l (3.5-5.1); SGOT/AST 46 u/l (19-48); SODIUM 140 mmol/l (137-146); TOTAL PROTEIN 7.6 g/dL (6.3-8.2)
[2021-12-18 16:46] LABS: ALKALINE PHOSPHATASE 83 u/l (38-126); BILIRUBIN, TOTAL 0.8 mg/dL (0.0-1.4)
[2021-12-18 21:15] LABS: URINE BILIRUBIN - DIPSTICK NEGATIVE (NEGATIVE); URINE BLOOD DIPSTICK MODERATE (NEGATIVE); URINE COLOR YELLOW; URINE GLUCOSE - DIPSTICK NEGATIVE (NEGATIVE); URINE KETONE NEGATIVE (NEGATIVE); URINE LEUK ESTERASE NEGATIVE (NEGATIVE); URINE PH 6.5 (4.5-8.0); URINE PROTEIN - DIPSTICK NEGATIVE (NEG-TRACE); URINE UROBILINOGEN - DIPSTICK 0.2 E.U./dL (0.2)
[2021-12-18 21:18] LABS: URINE NITRITE - DIPSTICK NEGATIVE (Negative)
[2021-12-18 21:47] LABS: URINE WBC 0-2 WBC/hpf (0-5)
[2021-12-19] VITALS (46 sets, daily range): BP systolic 94–145; BP diastolic 57–96
[2021-12-19 05:01] LABS: HEMATOCRIT 49.1 % (39.0-50.0); HEMOGLOBIN 16.1 g/dl (14.0-18.0); MEAN CELL VOLUME 96.3 fL CALC (80.0-100.0); MEAN CORPUSCULAR HGB 31.6 pG CALC (26.0-32.0); MEAN CORPUSCULAR HGB CONC 32.8 g/dL CAL (32.0-36.0); RED BLOOD COUNT 5.1 mill/uL (4.70-6.10)
[2021-12-19 05:13] LABS: BUN 22 mg/dL (8-23); BUN/CREATININE RATIO 20 (12-20 (CALC)); CHLORIDE 91 mmol/l (95-108); CREATININE 1.1 mg/dL (0.7-1.3); GFR FOR AFR.AMER. > 60 ML/MIN (>=60 (CALC)); GFR OTHER RACES > 60 ML/MIN (>=60 (CALC)); MAGNESIUM 2.2 mg/dL (1.6-2.3); POTASSIUM 3.9 mmol/l (3.5-5.1); SODIUM 140 mmol/l (137-146)
[2021-12-19 05:20] LABS: ANION GAP 14 (6-22 (CALC)); CARBON DIOXIDE 39 mmol/l (22-30)
[2021-12-20] VITALS (23 sets, daily range): BP systolic 58–141; BP diastolic 36–93
[2021-12-20 05:40] LABS: HEMATOCRIT 48.5 % (39.0-50.0); HEMOGLOBIN 15.4 g/dl (14.0-18.0); MEAN CELL VOLUME 99.6 fL CALC (80.0-100.0); MEAN CORPUSCULAR HGB 31.6 pG CALC (26.0-32.0); MEAN CORPUSCULAR HGB CONC 31.8 g/dL CAL (32.0-36.0); RED BLOOD COUNT 4.87 mill/uL (4.70-6.10); RED CELL DISTRI WIDTH 12.9 % (11.5-15.5)
[2021-12-20 06:01] LABS: BUN 36 mg/dL (8-23); BUN/CREATININE RATIO 28 (12-20 (CALC)); CHLORIDE 89 mmol/l (95-108); CREATININE 1.3 mg/dL (0.7-1.3); GFR FOR AFR.AMER. > 60 ML/MIN (>=60 (CALC)); GFR OTHER RACES 55 ML/MIN (>=60 (CALC)); MAGNESIUM 2.5 mg/dL (1.6-2.3); SODIUM 138 mmol/l (137-146)
[2021-12-20 06:18] LABS: ANION GAP 12 (6-22 (CALC)); CARBON DIOXIDE 42 mmol/l (22-30); POTASSIUM 4.8 mmol/l (3.5-5.1)
[2021-12-21] VITALS (28 sets, daily range): BP systolic 105–187; BP diastolic 55–148
[2021-12-21 05:37] LABS: HEMATOCRIT 47.6 % (39.0-50.0); HEMOGLOBIN 15.1 g/dl (14.0-18.0); MEAN CELL VOLUME 99.8 fL CALC (80.0-100.0); MEAN CORPUSCULAR HGB 31.7 pG CALC (26.0-32.0); MEAN CORPUSCULAR HGB CONC 31.7 g/dL CAL (32.0-36.0); RED BLOOD COUNT 4.77 mill/uL (4.70-6.10); RED CELL DISTRI WIDTH 12.9 % (11.5-15.5)
[2021-12-21 05:54] LABS: BUN 30 mg/dL (8-23); BUN/CREATININE RATIO 28 (12-20 (CALC)); CHLORIDE 87 mmol/l (95-108); CREATININE 1.1 mg/dL (0.7-1.3); GFR FOR AFR.AMER. > 60 ML/MIN (>=60 (CALC)); GFR OTHER RACES > 60 ML/MIN (>=60 (CALC)); MAGNESIUM 2.5 mg/dL (1.6-2.3); POTASSIUM 4.5 mmol/l (3.5-5.1); SODIUM 136 mmol/l (137-146)
[2021-12-21 06:01] LABS: ANION GAP 11 (6-22 (CALC))
[2021-12-21 06:08] LABS: CARBON DIOXIDE 43 mmol/l (22-30)
[2021-12-22] VITALS (26 sets, daily range): BP systolic 109–157; BP diastolic 50–91
[2021-12-22 05:18] LABS: HEMATOCRIT 46.9 % (39.0-50.0); HEMOGLOBIN 14.6 g/dl (14.0-18.0); MEAN CELL VOLUME 100.9 fL CALC (80.0-100.0); MEAN CORPUSCULAR HGB 31.4 pG CALC (26.0-32.0); MEAN CORPUSCULAR HGB CONC 31.1 g/dL CAL (32.0-36.0); RED BLOOD COUNT 4.65 mill/uL (4.70-6.10); RED CELL DISTRI WIDTH 12.8 % (11.5-15.5)
[2021-12-22 05:33] LABS: ANION GAP 10 (6-22 (CALC)); BUN 27 mg/dL (8-23); BUN/CREATININE RATIO 29 (12-20 (CALC)); CARBON DIOXIDE 39 mmol/l (22-30); CHLORIDE 92 mmol/l (95-108); CREATININE 0.9 mg/dL (0.7-1.3); GFR FOR AFR.AMER. > 60 ML/MIN (>=60 (CALC)); GFR OTHER RACES > 60 ML/MIN (>=60 (CALC)); MAGNESIUM 2.7 mg/dL (1.6-2.3); SODIUM 136 mmol/l (137-146)
[2021-12-23] VITALS (24 sets, daily range): BP systolic 103–138; BP diastolic 51–86
[2021-12-23 06:16] LABS: HEMATOCRIT 46.1 % (39.0-50.0); HEMOGLOBIN 14.6 g/dl (14.0-18.0); MEAN CELL VOLUME 99.8 fL CALC (80.0-100.0); MEAN CORPUSCULAR HGB 31.6 pG CALC (26.0-32.0); MEAN CORPUSCULAR HGB CONC 31.7 g/dL CAL (32.0-36.0); RED BLOOD COUNT 4.62 mill/uL (4.70-6.10); RED CELL DISTRI WIDTH 12.9 % (11.5-15.5)
[2021-12-23 06:24] LABS: ANION GAP 5 (6-22 (CALC)); BUN 25 mg/dL (8-23); BUN/CREATININE RATIO 28 (12-20 (CALC)); CARBON DIOXIDE 38 mmol/l (22-30); CHLORIDE 94 mmol/l (95-108); CREATININE 0.9 mg/dL (0.7-1.3); GFR FOR AFR.AMER. > 60 ML/MIN (>=60 (CALC)); GFR OTHER RACES > 60 ML/MIN (>=60 (CALC)); MAGNESIUM 2.7 mg/dL (1.6-2.3); SODIUM 133 mmol/l (137-146)
[2021-12-24] VITALS (17 sets, daily range): BP systolic 116–153; BP diastolic 62–93
[2021-12-24 06:21] LABS: HEMATOCRIT 45.7 % (39.0-50.0); HEMOGLOBIN 14.9 g/dl (14.0-18.0); MEAN CELL VOLUME 97.6 fL CALC (80.0-100.0); MEAN CORPUSCULAR HGB 31.8 pG CALC (26.0-32.0); MEAN CORPUSCULAR HGB CONC 32.6 g/dL CAL (32.0-36.0); RED BLOOD COUNT 4.68 mill/uL (4.70-6.10); RED CELL DISTRI WIDTH 12.7 % (11.5-15.5)
[2021-12-24 06:29] LABS: ANION GAP 9 (6-22 (CALC)); BUN 23 mg/dL (8-23); BUN/CREATININE RATIO 25 (12-20 (CALC)); CARBON DIOXIDE 35 mmol/l (22-30); CHLORIDE 95 mmol/l (95-108); CREATININE 0.9 mg/dL (0.7-1.3); GFR FOR AFR.AMER. > 60 ML/MIN (>=60 (CALC)); GFR OTHER RACES > 60 ML/MIN (>=60 (CALC)); MAGNESIUM 2.5 mg/dL (1.6-2.3); POTASSIUM 4.6 mmol/l (3.5-5.1); SODIUM 135 mmol/l (137-146)
[2021-12-25 00:40] VITALS: BP 135/91
[2021-12-25 03:54] VITALS: BP 142/84
[2021-12-25 05:51] LABS: HEMATOCRIT 46.5 % (39.0-50.0); HEMOGLOBIN 15.1 g/dl (14.0-18.0); MEAN CELL VOLUME 96.7 fL CALC (80.0-100.0); MEAN CORPUSCULAR HGB 31.4 pG CALC (26.0-32.0); MEAN CORPUSCULAR HGB CONC 32.5 g/dL CAL (32.0-36.0); RED BLOOD COUNT 4.81 mill/uL (4.70-6.10); RED CELL DISTRI WIDTH 12.7 % (11.5-15.5)
[2021-12-25 06:13] LABS: ANION GAP 8 (6-22 (CALC)); BUN 24 mg/dL (8-23); BUN/CREATININE RATIO 26 (12-20 (CALC)); CARBON DIOXIDE 32 mmol/l (22-30); CHLORIDE 97 mmol/l (95-108); CREATININE 0.9 mg/dL (0.7-1.3); GFR FOR AFR.AMER. > 60 ML/MIN (>=60 (CALC)); GFR OTHER RACES > 60 ML/MIN (>=60 (CALC)); MAGNESIUM 2.4 mg/dL (1.6-2.3); POTASSIUM 4.3 mmol/l (3.5-5.1); SODIUM 134 mmol/l (137-146)
[2021-12-25 06:21] VITALS: BP 140/86
[2021-12-25 08:00] VITALS: BP 140/86
[2021-12-25] MEDS ORDERED: PREDNISONE10 MG PO (10:23)
== END 2021-12-25 14:24 | disposition home health service (06) | DRG 190 ==
LOC: ED 15:24 → ED-I 18:03 → ED 19:02 → ICU 19:03 → MS2 12-24 14:40
PROVIDERS: Family Medicine; ADMIT Hospitalist; ATTEND Hospitalist
PROC: 5A09357 Assistance with Respiratory Ventilation, Less than 24 Consecutive Hours, Continuous Positive Airway Pressure (ICD-10-PCS; principal; 2021-12-18)
PROC: 0T9B70Z Drainage of Bladder with Drainage Device, Via Natural or Artificial Opening (ICD-10-PCS; 2021-12-18)
DX: J44.1 Chronic obstructive pulmonary disease with (acute) exacerbation (principal); J18.9 Pneumonia, unspecified organism; J96.21 Acute and chronic respiratory failure with hypoxia; E87.3 Alkalosis; I11.0 Hypertensive heart disease with heart failure; I50.9 Heart failure, unspecified; J44.0 Chronic obstructive pulmonary disease with (acute) lower respiratory infection; F14.10 Cocaine abuse, uncomplicated; I25.10 Atherosclerotic heart disease of native coronary artery without angina pectoris; E78.5 Hyperlipidemia, unspecified; F41.9 Anxiety disorder, unspecified; K21.9 Gastro-esophageal reflux disease without esophagitis; K59.00 Constipation, unspecified; F32.A Depression, unspecified; N40.0 Benign prostatic hyperplasia without lower urinary tract symptoms; F17.200 Nicotine dependence, unspecified, uncomplicated; Z99.81 Dependence on supplemental oxygen; Z87.01 Personal history of pneumonia (recurrent); Z20.822 Contact with and (suspected) exposure to COVID-19
CPT/HCPCS: J1650; J2060

== ENCOUNTER 2022-04-18 02:36 | Emergency (ER) | payer MEDICARE, MEDICAID ==
[~2022-04-18] VITALS: Ht 172.7 cm; Wt 100.0 kg
[2022-04-18 03:11] LABS: HEMATOCRIT 47.2 % (39.0-50.0); IMMATURE GRANULOCYTES 0.5 % (0.0-5.0); MEAN CELL VOLUME 92.5 fL CALC (80.0-100.0); MEAN CORPUSCULAR HGB 31.4 pG CALC (26.0-32.0); MEAN CORPUSCULAR HGB CONC 33.9 g/dL CAL (32.0-36.0); NEUT# 2.32 thou/uL (1.82-7.42); RED BLOOD COUNT 5.1 mill/uL (4.70-6.10)
[2022-04-18 03:20] LABS: PROTHROMBIN TIME 10.4 SECONDS (9.0-12.5)
[2022-04-18 03:21] LABS: ALBUMIN 4.1 g/dL (3.2-5.0); ALKALINE PHOSPHATASE 79 u/l (38-126); BILIRUBIN, TOTAL 0.5 mg/dL (0.0-1.4); BUN 14 mg/dL (8-23); BUN/CREATININE RATIO 15 (12-20 (CALC)); CARBON DIOXIDE 35 mmol/l (22-30); CHLORIDE 96 mmol/l (95-108); GFR FOR AFR.AMER. > 60 ML/MIN (>=60 (CALC)); GFR OTHER RACES > 60 ML/MIN (>=60 (CALC)); POTASSIUM 3.9 mmol/l (3.5-5.1); SGOT/AST 59 u/l (19-48)
[2022-04-18 03:28] LABS: ANION GAP 14 (6-22 (CALC)); SODIUM 141 mmol/l (137-146)
[2022-04-18 03:33] LABS: MYOGLOBIN 55 ng/mL (0 - 121)
[2022-04-18 03:47] LABS: URINE BILIRUBIN - DIPSTICK NEGATIVE (NEGATIVE); URINE BLOOD DIPSTICK NEGATIVE (NEGATIVE); URINE COLOR YELLOW; URINE GLUCOSE - DIPSTICK NEGATIVE (NEGATIVE); URINE KETONE NEGATIVE (NEGATIVE); URINE LEUK ESTERASE NEGATIVE (NEGATIVE); URINE PROTEIN - DIPSTICK NEGATIVE (NEG-TRACE); URINE SPECIFIC GRAVITY 1.015; URINE UROBILINOGEN - DIPSTICK 0.2 E.U./dL (0.2)
[2022-04-18 03:55] LABS: URINE NITRITE - DIPSTICK NEGATIVE (Negative)
[2022-04-18] MEDS ORDERED: VIBRAMYCIN100 M2 PO (05:46)
[2022-04-18] MEDS ORDERED: PREDNISONE50 MG PO (05:46)
[2022-04-18] MEDS ORDERED: PAXLOVID PO (05:46)
[2022-04-18 05:54] VITALS: BP 171/92
[2022-04-18] MEDS ORDERED: VENTOLIN HFA IN (05:54)
== END 2022-04-18 06:17 | disposition home or self-care (01) ==
LOC: ED 02:36
PROVIDERS: Family Medicine
DX: U07.1 COVID-19 (principal); J44.1 Chronic obstructive pulmonary disease with (acute) exacerbation; F32.A Depression, unspecified; F41.9 Anxiety disorder, unspecified; Z99.81 Dependence on supplemental oxygen; Z87.891 Personal history of nicotine dependence

== ENCOUNTER 2022-06-19 11:05 | Observation (INO) | payer MEDICARE, MEDICAID ==
[~2022-06-19] VITALS: Ht 172.7 cm; Wt 95.0 kg
[2022-06-19] VITALS (12 sets, daily range): BP systolic 111–152; BP diastolic 73–107
[~2022-06-19 11:05] MED LIST changes: +PAXLOVID PO; +PREDNISONE50 MG PO; +VIBRAMYCIN100 M2 PO
[2022-06-19 11:49] LABS: HEMOGLOBIN 15.2 g/dl (14.0-18.0); IMMATURE GRANULOCYTES 0.2 % (0.0-5.0); MEAN CELL VOLUME 92.6 fL CALC (80.0-100.0); MEAN CORPUSCULAR HGB 31.3 pG CALC (26.0-32.0); MEAN CORPUSCULAR HGB CONC 33.8 g/dL CAL (32.0-36.0); NEUT# 3.21 thou/uL (1.82-7.42); RED BLOOD COUNT 4.86 mill/uL (4.70-6.10); RED CELL DISTRI WIDTH 13.6 % (11.5-15.5)
[2022-06-19 12:02] LABS: ALBUMIN 4.3 g/dL (3.2-5.0); ALKALINE PHOSPHATASE 69 u/l (38-126); ANION GAP 12 (6-22 (CALC)); BILIRUBIN, TOTAL 0.7 mg/dL (0.0-1.4); BUN 15 mg/dL (8-23); BUN/CREATININE RATIO 19 (12-20 (CALC)); CARBON DIOXIDE 34 mmol/l (22-30); CHLORIDE 97 mmol/l (95-108); CREATININE 0.8 mg/dL (0.7-1.3); GFR FOR AFR.AMER. > 60 ML/MIN (>=60 (CALC)); GFR OTHER RACES > 60 ML/MIN (>=60 (CALC)); POTASSIUM 3.7 mmol/l (3.5-5.1); SGOT/AST 36 u/l (19-48); SODIUM 139 mmol/l (137-146)
[2022-06-20 00:10] VITALS: BP 130/81
[2022-06-20 03:50] VITALS: BP 158/92
[2022-06-20 06:09] LABS: HEMATOCRIT 43.7 % (39.0-50.0); IMMATURE GRANULOCYTES 0.2 % (0.0-5.0); MEAN CORPUSCULAR HGB 31.6 pG CALC (26.0-32.0); MEAN CORPUSCULAR HGB CONC 34.3 g/dL CAL (32.0-36.0); NEUT# 5.61 thou/uL (1.82-7.42); RED BLOOD COUNT 4.75 mill/uL (4.70-6.10); RED CELL DISTRI WIDTH 13.4 % (11.5-15.5)
[2022-06-20 06:11] LABS: ALKALINE PHOSPHATASE 65 u/l (38-126); ANION GAP 12 (6-22 (CALC)); BUN 17 mg/dL (8-23); BUN/CREATININE RATIO 21 (12-20 (CALC)); CARBON DIOXIDE 32 mmol/l (22-30); CHLORIDE 97 mmol/l (95-108); CREATININE 0.8 mg/dL (0.7-1.3); GFR FOR AFR.AMER. > 60 ML/MIN (>=60 (CALC)); GFR OTHER RACES > 60 ML/MIN (>=60 (CALC)); SGOT/AST 27 u/l (19-48); SODIUM 137 mmol/l (137-146); TOTAL PROTEIN 7.8 g/dL (6.3-8.2)
[2022-06-20 06:13] LABS: BILIRUBIN, TOTAL 0.4 mg/dL (0.0-1.4)
[2022-06-20 06:39] VITALS: BP 158/92
[2022-06-20] MEDS ORDERED: PREDNISONE10 MG PO (11:34)
[2022-06-20] MEDS ORDERED: ZITHROMAX250 MG PO (11:35)
[2022-06-20 11:52] VITALS: BP 158/92
== END 2022-06-20 16:45 | disposition home health service (06) ==
LOC: ED 11:05 → ED-I 12:10 → ED 12:36 → MS2 12:37
PROVIDERS: Family Medicine; Nurse Practitioner Family; ADMIT Internal Medicine; ATTEND Internal Medicine
DX: J44.1 Chronic obstructive pulmonary disease with (acute) exacerbation (principal); R04.2 Hemoptysis; I10 Essential (primary) hypertension; I25.10 Atherosclerotic heart disease of native coronary artery without angina pectoris; E78.5 Hyperlipidemia, unspecified; F41.9 Anxiety disorder, unspecified; F32.A Depression, unspecified; Z87.891 Personal history of nicotine dependence; Z99.81 Dependence on supplemental oxygen; Z20.822 Contact with and (suspected) exposure to COVID-19
CPT/HCPCS: J1650

== ENCOUNTER 2022-07-14 18:29 | Emergency (ER) | payer MEDICARE, MEDICAID ==
[2022-07-14] VITALS (9 sets, daily range): BP systolic 98–226; BP diastolic 44–147
[~2022-07-14] VITALS: Ht 172.7 cm; Wt 95.0 kg
[2022-07-14 19:40] LABS: BASO% 0.4 % (0-3); HEMATOCRIT 43.2 % (39.0-50.0); HEMOGLOBIN 15.3 g/dl (14.0-18.0); IMMATURE GRANULOCYTES 0.2 % (0.0-5.0); LYMPH% 18.1 % (15-41); MEAN CELL VOLUME 90.6 fL CALC (80.0-100.0); MEAN CORPUSCULAR HGB 32.1 pG CALC (26.0-32.0); MEAN CORPUSCULAR HGB CONC 35.4 g/dL CAL (32.0-36.0); MONO% 11.1 % (2-13); NEUT# 3.21 thou/uL (1.82-7.42); NEUT% 70.2 % (42-76); RED BLOOD COUNT 4.77 mill/uL (4.70-6.10); RED CELL DISTRI WIDTH 14.4 % (11.5-15.5)
[2022-07-14 19:56] LABS: ALBUMIN 4.3 g/dL (3.2-5.0); ALKALINE PHOSPHATASE 81 u/l (38-126); ANION GAP 13 (6-22 (CALC)); BUN 26 mg/dL (8-23); BUN/CREATININE RATIO 28 (12-20 (CALC)); CARBON DIOXIDE 32 mmol/l (22-30); CHLORIDE 91 mmol/l (95-108); CREATININE 0.9 mg/dL (0.7-1.3); GFR FOR AFR.AMER. > 60 ML/MIN (>=60 (CALC)); GFR OTHER RACES > 60 ML/MIN (>=60 (CALC)); POTASSIUM 3.4 mmol/l (3.5-5.1); SGOT/AST 37 u/l (19-48); SODIUM 133 mmol/l (137-146); TOTAL PROTEIN 7.5 g/dL (6.3-8.2)
[2022-07-14 19:57] LABS: D-DIMER 0.37 mg/L (0.19-0.60)
[2022-07-14 20:00] LABS: INTERNATIONAL NORMALIZED RATIO 1.2 RATIO (0.7-1.3); PROTHROMBIN TIME 11.7 SECONDS (9.0-12.5)
[2022-07-14 20:16] LABS: BILIRUBIN, TOTAL 1.6 mg/dL (0.0-1.4)
[2022-07-14 21:52] LABS: URINE BILIRUBIN - DIPSTICK SMALL (NEGATIVE); URINE BLOOD DIPSTICK NEGATIVE (NEGATIVE); URINE COLOR YELLOW; URINE GLUCOSE - DIPSTICK NEGATIVE (NEGATIVE); URINE KETONE 15 mg/dL (NEGATIVE); URINE LEUK ESTERASE NEGATIVE (NEGATIVE); URINE NITRITE - DIPSTICK NEGATIVE (Negative); URINE PH 5.5 (4.5-8.0); URINE PROTEIN - DIPSTICK NEGATIVE (NEG-TRACE); URINE SPECIFIC GRAVITY 1.025; URINE UROBILINOGEN - DIPSTICK 0.2 E.U./dL (0.2)
== END 2022-07-14 22:45 | disposition home or self-care (01) ==
LOC: ED 18:29
PROVIDERS: Family Medicine
DX: J44.1 Chronic obstructive pulmonary disease with (acute) exacerbation (principal); F14.10 Cocaine abuse, uncomplicated; I10 Essential (primary) hypertension; F32.A Depression, unspecified; F41.9 Anxiety disorder, unspecified; Z99.81 Dependence on supplemental oxygen; Z20.822 Contact with and (suspected) exposure to COVID-19

== ENCOUNTER 2022-09-29 05:10 | Observation (INO) | payer MEDICARE, MEDICAID ==
[2022-09-29] VITALS (40 sets, daily range): BP systolic 87–188; BP diastolic 59–148
[~2022-09-29] VITALS: Ht 172.7 cm; Wt 95.0 kg
[2022-09-29 05:52] LABS: BASO% 0.4 % (0-3); HEMOGLOBIN 14.5 g/dl (14.0-18.0); IMMATURE GRANULOCYTES 0.1 % (0.0-5.0); LYMPH% 11.6 % (15-41); MEAN CORPUSCULAR HGB 31.1 pG CALC (26.0-32.0); MEAN CORPUSCULAR HGB CONC 32.2 g/dL CAL (32.0-36.0); MONO% 8.8 % (2-13); NEUT# 6.22 thou/uL (1.82-7.42); NEUT% 79.1 % (42-76); RED BLOOD COUNT 4.66 mill/uL (4.70-6.10); RED CELL DISTRI WIDTH 13.2 % (11.5-15.5)
[2022-09-29 06:03] LABS: MEAN CELL VOLUME 96.6 fL CALC (80.0-100.0)
[2022-09-29 06:07] LABS: ALBUMIN 4.4 g/dL (3.2-5.0); ALKALINE PHOSPHATASE 88 u/l (38-126); AMYLASE 42 u/l (30-110); BUN 9 mg/dL (8-23); BUN/CREATININE RATIO 12 (12-20 (CALC)); CHLORIDE 91 mmol/l (95-108); CREATININE 0.8 mg/dL (0.7-1.3); GFR FOR AFR.AMER. > 60 ML/MIN (>=60 (CALC)); GFR OTHER RACES > 60 ML/MIN (>=60 (CALC)); POTASSIUM 3.7 mmol/l (3.5-5.1); SGOT/AST 27 u/l (19-48); SODIUM 139 mmol/l (137-146); TOTAL PROTEIN 8.1 g/dL (6.3-8.2)
[2022-09-29 06:15] LABS: ANION GAP 8 (6-22 (CALC)); BILIRUBIN, TOTAL 0.7 mg/dL (0.2-1.3); CARBON DIOXIDE 44 mmol/l (22-30)
[2022-09-29 06:42] LABS: URINE BILIRUBIN - DIPSTICK NEGATIVE (NEGATIVE); URINE BLOOD DIPSTICK NEGATIVE (NEGATIVE); URINE COLOR YELLOW; URINE GLUCOSE - DIPSTICK NEGATIVE (NEGATIVE); URINE KETONE NEGATIVE (NEGATIVE); URINE LEUK ESTERASE NEGATIVE (NEGATIVE); URINE PH 8.5 (4.5-8.0); URINE PROTEIN - DIPSTICK NEGATIVE (NEG-TRACE); URINE UROBILINOGEN - DIPSTICK 0.2 E.U./dL (0.2)
[2022-09-29 06:51] LABS: URINE NITRITE - DIPSTICK NEGATIVE (Negative)
[2022-09-30] VITALS (7 sets, daily range): BP systolic 132–171; BP diastolic 72–139
[2022-09-30 05:34] LABS: BASO% 0.1 % (0-3); HEMATOCRIT 41.5 % (39.0-50.0); HEMOGLOBIN 13.4 g/dl (14.0-18.0); IMMATURE GRANULOCYTES 0.2 % (0.0-5.0); LYMPH% 6.1 % (15-41); MEAN CELL VOLUME 96.1 fL CALC (80.0-100.0); MEAN CORPUSCULAR HGB CONC 32.3 g/dL CAL (32.0-36.0); MONO% 3.7 % (2-13); NEUT# 8.01 thou/uL (1.82-7.42); NEUT% 89.9 % (42-76); RED BLOOD COUNT 4.32 mill/uL (4.70-6.10); RED CELL DISTRI WIDTH 13.1 % (11.5-15.5)
[2022-09-30 05:47] LABS: ALBUMIN 3.8 g/dL (3.2-5.0); ALKALINE PHOSPHATASE 63 u/l (38-126); BUN 18 mg/dL (8-23); BUN/CREATININE RATIO 23 (12-20 (CALC)); CHLORIDE 96 mmol/l (95-108); CREATININE 0.8 mg/dL (0.7-1.3); GFR FOR AFR.AMER. > 60 ML/MIN (>=60 (CALC)); GFR OTHER RACES > 60 ML/MIN (>=60 (CALC)); POTASSIUM 4.2 mmol/l (3.5-5.1); SGOT/AST 20 u/l (19-48); SODIUM 138 mmol/l (137-146); TOTAL PROTEIN 7.1 g/dL (6.3-8.2)
[2022-09-30 06:04] LABS: ANION GAP 11 (6-22 (CALC)); BILIRUBIN, TOTAL 0.4 mg/dL (0.2-1.3); CARBON DIOXIDE 35 mmol/l (22-30)
[2022-09-30] MEDS ORDERED: NEURONTIN100 MG PO (10:16)
[2022-09-30] MEDS ORDERED: TRAZODONE50 MG PO (10:18)
[2022-09-30] MEDS ORDERED: ADVIL MIGRAI200 M1 PO (10:19)
[2022-09-30] MEDS ORDERED: PROSCAR5 MG PO (10:20)
[2022-09-30] MEDS ORDERED: OMEPRAZOLE20 MG PO (10:20)
[2022-10-01 02:41] VITALS: BP 147/79
[2022-10-01 05:14] LABS: BASO% 0.1 % (0-3); IMMATURE GRANULOCYTES 0.4 % (0.0-5.0); MEAN CELL VOLUME 98.6 fL CALC (80.0-100.0); MEAN CORPUSCULAR HGB 30.5 pG CALC (26.0-32.0); MONO% 3.2 % (2-13); NEUT# 7.47 thou/uL (1.82-7.42); NEUT% 91.3 % (42-76); RED BLOOD COUNT 4.26 mill/uL (4.70-6.10); RED CELL DISTRI WIDTH 13.3 % (11.5-15.5)
[2022-10-01 05:25] LABS: ALBUMIN 3.4 g/dL (3.2-5.0); ALKALINE PHOSPHATASE 56 u/l (38-126); ANION GAP 9 (6-22 (CALC)); BUN 15 mg/dL (8-23); BUN/CREATININE RATIO 21 (12-20 (CALC)); CARBON DIOXIDE 33 mmol/l (22-30); CHLORIDE 103 mmol/l (95-108); CREATININE 0.7 mg/dL (0.7-1.3); GFR FOR AFR.AMER. > 60 ML/MIN (>=60 (CALC)); GFR OTHER RACES > 60 ML/MIN (>=60 (CALC)); POTASSIUM 4.3 mmol/l (3.5-5.1); SGOT/AST 20 u/l (19-48); SODIUM 141 mmol/l (137-146); TOTAL PROTEIN 6.2 g/dL (6.3-8.2)
[2022-10-01 05:33] VITALS: BP 157/91
[2022-10-01 05:33] LABS: BILIRUBIN, TOTAL 0.2 mg/dL (0.2-1.3)
[2022-10-01 07:15] VITALS: BP 157/91
[2022-10-01] MEDS ORDERED: PREDNISONE10 MG PO (10:37)
[2022-10-01] MEDS ORDERED: BIOTUSSIN PO (10:38)
[2022-10-01] MEDS ORDERED: ZITHROMAX250 MG PO (10:38)
== END 2022-10-01 13:10 ==
LOC: ED 05:10 → ED-I 06:20 → ED 06:37 → ED-I 06:38 → MS2 06:38
PROVIDERS: Emergency Medicine; ADMIT Internal Medicine; ATTEND Internal Medicine
DX: J44.1 Chronic obstructive pulmonary disease with (acute) exacerbation (principal); R04.2 Hemoptysis; J96.11 Chronic respiratory failure with hypoxia; I11.0 Hypertensive heart disease with heart failure; I50.9 Heart failure, unspecified; I25.10 Atherosclerotic heart disease of native coronary artery without angina pectoris; Z20.822 Contact with and (suspected) exposure to COVID-19; F32.A Depression, unspecified; F41.9 Anxiety disorder, unspecified; Z87.891 Personal history of nicotine dependence; Z99.81 Dependence on supplemental oxygen; E78.5 Hyperlipidemia, unspecified

== ENCOUNTER 2022-11-01 14:44 | Emergency (ER) | payer OTHER, MEDICARE, MEDICAID ==
[2022-11-01] VITALS (27 sets, daily range): BP systolic 121–148; BP diastolic 57–124
[~2022-11-01] VITALS: Ht 172.7 cm; Wt 104.3 kg
[~2022-11-01 14:44] MED LIST changes: +ADVIL MIGRAI200 M1 PO; +NEURONTIN100 MG PO; +PROSCAR5 MG PO
[2022-11-01 15:23] LABS: BASO% 0.4 % (0-3); HEMATOCRIT 43.8 % (39.0-50.0); HEMOGLOBIN 13.7 g/dl (14.0-18.0); IMMATURE GRANULOCYTES 0.2 % (0.0-5.0); LYMPH% 17.9 % (15-41); MEAN CELL VOLUME 97.3 fL CALC (80.0-100.0); MEAN CORPUSCULAR HGB 30.4 pG CALC (26.0-32.0); MEAN CORPUSCULAR HGB CONC 31.3 g/dL CAL (32.0-36.0); MONO% 14.8 % (2-13); NEUT# 3.65 thou/uL (1.82-7.42); NEUT% 66.7 % (42-76); RED BLOOD COUNT 4.5 mill/uL (4.70-6.10); RED CELL DISTRI WIDTH 13.6 % (11.5-15.5)
[2022-11-01 15:47] LABS: ALKALINE PHOSPHATASE 69 u/l (38-126); BUN 17 mg/dL (8-23); BUN/CREATININE RATIO 18 (12-20 (CALC)); CHLORIDE 93 mmol/l (95-108); CREATININE 0.9 mg/dL (0.7-1.3); GFR FOR AFR.AMER. > 60 ML/MIN (>=60 (CALC)); GFR OTHER RACES > 60 ML/MIN (>=60 (CALC)); POTASSIUM 4.4 mmol/l (3.5-5.1); SGOT/AST 24 u/l (19-48); SODIUM 138 mmol/l (137-146); TOTAL PROTEIN 7.3 g/dL (6.3-8.2)
[2022-11-01 15:56] LABS: ALBUMIN 4.1 g/dL (3.2-5.0); ANION GAP 8 (6-22 (CALC)); BILIRUBIN, TOTAL 0.6 mg/dL (0.2-1.3); CARBON DIOXIDE 41 mmol/l (22-30)
== END 2022-11-01 23:21 | disposition short-term general hospital (02) | DRG 562 ==
LOC: ED 14:44
PROVIDERS: Nurse Practitioner
DX: S82.832A Other fracture of upper and lower end of left fibula, initial encounter for closed fracture (principal); J18.9 Pneumonia, unspecified organism; J44.1 Chronic obstructive pulmonary disease with (acute) exacerbation; J44.0 Chronic obstructive pulmonary disease with (acute) lower respiratory infection; I10 Essential (primary) hypertension; F32.A Depression, unspecified; F41.9 Anxiety disorder, unspecified; F17.200 Nicotine dependence, unspecified, uncomplicated; X50.0XXA Overexertion from strenuous movement or load, initial encounter; Y92.009 Unspecified place in unspecified non-institutional (private) residence as the place of occurrence of the external cause; Z20.822 Contact with and (suspected) exposure to COVID-19

== ENCOUNTER 2022-11-28 11:38 | Emergency (ER) | payer MEDICARE, MEDICAID ==
[~2022-11-28] VITALS: Ht 172.7 cm; Wt 72.5 kg
[2022-11-28 12:00] VITALS: BP 128/81
[2022-11-28 12:15] VITALS: BP 114/84
[2022-11-28 14:02] VITALS: BP 114/84
== END 2022-11-28 14:49 ==
LOC: ED 11:38
PROC: 2W3RX1Z Immobilization of Left Lower Leg using Splint (ICD-10-PCS; principal; 2022-11-28)
DX: S82.92XD Unspecified fracture of left lower leg, subsequent encounter for closed fracture with routine healing (principal); I10 Essential (primary) hypertension; J44.9 Chronic obstructive pulmonary disease, unspecified; F41.9 Anxiety disorder, unspecified; F32.A Depression, unspecified; F17.200 Nicotine dependence, unspecified, uncomplicated; X58.XXXD Exposure to other specified factors, subsequent encounter; M79.662 Pain in left lower leg

== ENCOUNTER 2023-07-31 13:57 | Inpatient (IN) | payer MEDICARE, MEDICAID ==
[2023-07-31] VITALS (8 sets, daily range): BP systolic 123–146; BP diastolic 60–77
[~2023-07-31] VITALS: Ht 172.7 cm; Wt 88.0 kg
[2023-07-31 14:41] LABS: BASO% 0.3 % (0-3); HEMATOCRIT 41.6 % (39.0-50.0); HEMOGLOBIN 12.9 g/dl (14.0-18.0); IMMATURE GRANULOCYTES 0.2 % (0.0-5.0); LYMPH% 6.4 % (15-41); MEAN CELL VOLUME 95.2 fL CALC (80.0-100.0); MEAN CORPUSCULAR HGB 29.5 pG CALC (26.0-32.0); MONO% 10.5 % (2-13); NEUT# 7.64 thou/uL (1.82-7.42); NEUT% 82.6 % (42-76); RED BLOOD COUNT 4.37 mill/uL (4.70-6.10); RED CELL DISTRI WIDTH 14.1 % (11.5-15.5)
[2023-07-31 14:53] LABS: ALBUMIN 3.4 g/dL (3.2-5.0); ALKALINE PHOSPHATASE 91 u/l (38-126); BUN 17 mg/dL (8-23); BUN/CREATININE RATIO 30 (12-20 (CALC)); CHLORIDE 76 mmol/l (95-108); CPK 27 u/l (55-170); CREATININE 0.6 mg/dL (0.7-1.3); ETHYL ALCOHOL 0 mg/dl (0-30); GFR FOR AFR.AMER. > 60 ML/MIN (>=60 (CALC)); GFR OTHER RACES > 60 ML/MIN (>=60 (CALC)); SGOT/AST 32 u/l (19-48); SODIUM 135 mmol/l (137-146); TOTAL PROTEIN 6.7 g/dL (6.3-8.2)
[2023-07-31 15:08] LABS: ANION GAP 5 (6-22 (CALC)); POTASSIUM 3.4 mmol/l (3.5-5.1)
[2023-07-31 15:09] LABS: CARBON DIOXIDE 57 mmol/l (22-30)
[2023-07-31 18:30] LABS: URINE BILIRUBIN - DIPSTICK Negative (NEGATIVE); URINE BLOOD DIPSTICK Large (NEGATIVE); URINE GLUCOSE - DIPSTICK Negative (NEGATIVE); URINE KETONE 15 mg/dL (NEGATIVE); URINE LEUK ESTERASE Negative (NEGATIVE); URINE NITRITE - DIPSTICK Negative (Negative); URINE PH 8.5 (4.5-8.0); URINE PROTEIN - DIPSTICK 100 mg/dL (NEG-TRACE); URINE SPECIFIC GRAVITY 1.015
[2023-07-31 18:32] LABS: URINE COLOR Yellow
[2023-07-31 18:39] LABS: URINE RBC 25-50 RBC/hpf (0-5); URINE WBC 0-2 WBC/hpf (0-5)
[2023-08-01] VITALS (21 sets, daily range): BP systolic 109–162; BP diastolic 54–135
[2023-08-01 07:23] LABS: BASO% 0.2 % (0-3); HEMATOCRIT 36.7 % (39.0-50.0); HEMOGLOBIN 11.4 g/dl (14.0-18.0); IMMATURE GRANULOCYTES 0.2 % (0.0-5.0); MEAN CELL VOLUME 94.6 fL CALC (80.0-100.0); MEAN CORPUSCULAR HGB 29.4 pG CALC (26.0-32.0); MEAN CORPUSCULAR HGB CONC 31.1 g/dL CAL (32.0-36.0); MONO% 5.6 % (2-13); NEUT# 4.88 thou/uL (1.82-7.42); RED BLOOD COUNT 3.88 mill/uL (4.70-6.10)
[2023-08-01 07:53] LABS: BUN 15 mg/dL (8-23); BUN/CREATININE RATIO 26 (12-20 (CALC)); CREATININE 0.6 mg/dL (0.7-1.3); GFR FOR AFR.AMER. > 60 ML/MIN (>=60 (CALC)); GFR OTHER RACES > 60 ML/MIN (>=60 (CALC)); POTASSIUM 3.7 mmol/l (3.5-5.1); SODIUM 136 mmol/l (137-146)
[2023-08-01 08:13] LABS: CHLORIDE 88 mmol/l (95-108)
[2023-08-01 08:29] LABS: ANION GAP 6 (6-22 (CALC)); CARBON DIOXIDE 46 mmol/l (22-30)
[2023-08-01] MEDS ORDERED: NEURONTIN600 MG PO (11:42)
[2023-08-01] MEDS ORDERED: LASIX 20 MG TAB20 MG PO (11:58)
[2023-08-01] MEDS ORDERED: PROSCAR5 MG PO (11:59)
[2023-08-01] MEDS ORDERED: TERAZOSIN HYDROC5 MG PO (12:02)
[2023-08-01] MEDS ORDERED: IMITREX50 M1 PO (12:05)
[2023-08-01] MEDS ORDERED: OMEPRAZOLE20 MG PO (13:28)
[2023-08-01] MEDS ORDERED: CRESTOR5 MG PO (13:29)
[2023-08-01] MEDS ORDERED: TRAZODONE50 MG PO (13:30)
[2023-08-01] MEDS ORDERED: MYCOPHENOLATE500 MG PO (13:32)
[2023-08-01] MEDS ORDERED: SILDENAFIL100 MG PO (15:05)
[2023-08-02] VITALS (164 sets, daily range): BP systolic 70–170; BP diastolic 45–104
[2023-08-02 09:18] LABS: BASO% 0.2 % (0-3); HEMATOCRIT 38.8 % (39.0-50.0); HEMOGLOBIN 11.7 g/dl (14.0-18.0); IMMATURE GRANULOCYTES 0.4 % (0.0-5.0); MEAN CELL VOLUME 98.2 fL CALC (80.0-100.0); MEAN CORPUSCULAR HGB 29.6 pG CALC (26.0-32.0); MEAN CORPUSCULAR HGB CONC 30.2 g/dL CAL (32.0-36.0); MONO% 6.1 % (2-13); NEUT# 5.1 thou/uL (1.82-7.42); NEUT% 89.3 % (42-76); RED BLOOD COUNT 3.95 mill/uL (4.70-6.10)
[2023-08-02 09:52] LABS: CHLORIDE 88 mmol/l (95-108); POTASSIUM 3.5 mmol/l (3.5-5.1); SODIUM 141 mmol/l (137-146)
[2023-08-02 09:57] LABS: BUN 21 mg/dL (8-23); BUN/CREATININE RATIO 31 (12-20 (CALC)); CREATININE 0.7 mg/dL (0.7-1.3); GFR FOR AFR.AMER. > 60 ML/MIN (>=60 (CALC)); GFR OTHER RACES > 60 ML/MIN (>=60 (CALC))
[2023-08-02 10:30] LABS: ANION GAP 5 (6-22 (CALC))
[2023-08-02 10:31] LABS: CARBON DIOXIDE 52 mmol/l (22-30)
[2023-08-03] VITALS (32 sets, daily range): BP systolic 110–160; BP diastolic 61–132
[2023-08-03 05:21] LABS: HEMATOCRIT 32.6 % (39.0-50.0); HEMOGLOBIN 10.4 g/dl (14.0-18.0); IMMATURE GRANULOCYTES 0.1 % (0.0-5.0); LYMPH% 8.1 % (15-41); MEAN CELL VOLUME 94.8 fL CALC (80.0-100.0); MEAN CORPUSCULAR HGB 30.2 pG CALC (26.0-32.0); MEAN CORPUSCULAR HGB CONC 31.9 g/dL CAL (32.0-36.0); MONO% 10.6 % (2-13); NEUT# 5.91 thou/uL (1.82-7.42); NEUT% 81.2 % (42-76); RED BLOOD COUNT 3.44 mill/uL (4.70-6.10); RED CELL DISTRI WIDTH 13.7 % (11.5-15.5)
[2023-08-03 05:23] LABS: BUN 21 mg/dL (8-23); BUN/CREATININE RATIO 27 (12-20 (CALC)); CHLORIDE 92 mmol/l (95-108); CREATININE 0.8 mg/dL (0.7-1.3); GFR FOR AFR.AMER. > 60 ML/MIN (>=60 (CALC)); GFR OTHER RACES > 60 ML/MIN (>=60 (CALC)); SODIUM 136 mmol/l (137-146)
[2023-08-03 05:50] LABS: ANION GAP 3 (6-22 (CALC))
[2023-08-03 05:59] LABS: CARBON DIOXIDE 44 mmol/l (22-30)
== END 2023-08-03 17:19 | disposition short-term general hospital (02) | DRG 208 ==
LOC: ED 13:57 → ED-I 16:03 → ED 17:01 → ICU 17:02
PROVIDERS: Family Medicine; ADMIT Student in an Organized Health Care Education/Training Program; ATTEND Student in an Organized Health Care Education/Training Program
PROC: 5A09457 Assistance with Respiratory Ventilation, 24-96 Consecutive Hours, Continuous Positive Airway Pressure (ICD-10-PCS; principal; 2023-07-31)
PROC: 5A1945Z Respiratory Ventilation, 24-96 Consecutive Hours (ICD-10-PCS; 2023-08-02)
PROC: 0BH17EZ Insertion of Endotracheal Airway into Trachea, Via Natural or Artificial Opening (ICD-10-PCS; 2023-08-02)
PROC: 05HM33Z Insertion of Infusion Device into Right Internal Jugular Vein, Percutaneous Approach (ICD-10-PCS; 2023-08-02)
DX: J44.1 Chronic obstructive pulmonary disease with (acute) exacerbation (principal); J18.9 Pneumonia, unspecified organism; J96.02 Acute respiratory failure with hypercapnia; J96.01 Acute respiratory failure with hypoxia; J69.0 Pneumonitis due to inhalation of food and vomit; E87.3 Alkalosis; L03.311 Cellulitis of abdominal wall; E87.4 Mixed disorder of acid-base balance; J44.0 Chronic obstructive pulmonary disease with (acute) lower respiratory infection; T17.918A Gastric contents in respiratory tract, part unspecified causing other injury, initial encounter; I11.0 Hypertensive heart disease with heart failure; I50.9 Heart failure, unspecified; E78.5 Hyperlipidemia, unspecified; F32.A Depression, unspecified; F41.9 Anxiety disorder, unspecified; E87.8 Other disorders of electrolyte and fluid balance, not elsewhere classified; I25.10 Atherosclerotic heart disease of native coronary artery without angina pectoris; F14.10 Cocaine abuse, uncomplicated; B96.89 Other specified bacterial agents as the cause of diseases classified elsewhere; B95.62 Methicillin resistant Staphylococcus aureus infection as the cause of diseases classified elsewhere; W44.8XXA Other foreign body entering into or through a natural orifice, initial encounter; Z66 Do not resuscitate; Z99.81 Dependence on supplemental oxygen; Z20.822 Contact with and (suspected) exposure to COVID-19; Z87.891 Personal history of nicotine dependence; Z87.01 Personal history of pneumonia (recurrent)
CPT/HCPCS: J1650; J3370; Q9967

== ENCOUNTER 2023-08-08 21:40 | Inpatient (IN) | payer MEDICARE, MEDICAID ==
[~2023-08-08] VITALS: Ht 172.7 cm; Wt 88.0 kg
[~2023-08-08 21:40] MED LIST changes: +CRESTOR5 MG PO; +IMITREX50 M1 PO; +MYCOPHENOLATE500 MG PO; +NEURONTIN600 MG PO; +SILDENAFIL100 MG PO; +TERAZOSIN HYDROC5 MG PO
--- NOTE | 2023-08-08 21:40 | NUR ---
PATIENT ARRIVED VIA TRANSPORTATION. HE IS NOTED ON A NON REBREATHER AT 8L AT THIS TIME. HE WAS ON BIPAAP PRIOR TO TRANSPORT. RESPIRATORY CONTACTED TO PLACE PATIENT ON BIPAP. HIS SATS AT THIS MONENT ARE NOTED IN THE THE HIGH 90S. MADE AWARE OF PATIENTS ARRIVAL. HE ARRIVED WITH NO MEIDCATION ORDERS. [facility] CONTACTED REGARDING MED LIST FOR PATIENT. CURRENTLY AWAITING FAX AT THIS TIME. PATIENT DENIES ANY PAIN OR DISCOMFORT. ASSESSMENT COMPLETED (SEE INTERVENTIONS). 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 WILL CONTINUE TO MONITOR FOR ANY CHANGES.
[2023-08-09] VITALS (68 sets, daily range): BP systolic 107–165; BP diastolic 52–96
--- NOTE | 2023-08-09 | NUR ---
NO CHANGES NOTED AT THIS TIME. PATIENT NOTED RESTING COMFORTABLY ON BIPAP. NO ORDERS RECEIVED YET FROM [facility]. WILL CONTINUE TO MONITOR FOR ANY CHANGES.
--- NOTE | 2023-08-09 01:15 | NUR ---
MEDICATION LIST RECEIVED VERBALLY FROM [facility] VARGAS MADE AWARE OF MEDICATION ORDERS. ALL ORDERS FAXED TO PHARMACY PER DR. BURTON.
--- NOTE | 2023-08-09 04:00 | NUR ---
PATIENT SLEEPING COMFORTABLY WITH BIPAP IN PLACE. NO ACUTE DISTRESS NOTED.
[2023-08-09 05:40] LABS: HEMATOCRIT 32.6 % (39.0-50.0); HEMOGLOBIN 10.3 g/dl (14.0-18.0); MEAN CELL VOLUME 94.8 fL CALC (80.0-100.0); MEAN CORPUSCULAR HGB 29.9 pG CALC (26.0-32.0); MEAN CORPUSCULAR HGB CONC 31.6 g/dL CAL (32.0-36.0); RED BLOOD COUNT 3.44 mill/uL (4.70-6.10); RED CELL DISTRI WIDTH 13.7 % (11.5-15.5)
[2023-08-09 05:54] LABS: ALKALINE PHOSPHATASE 53 u/l (38-126); BUN 29 mg/dL (8-23); BUN/CREATININE RATIO 68 (12-20 (CALC)); CHLORIDE 93 mmol/l (95-108); CREATININE 0.4 mg/dL (0.7-1.3); GFR FOR AFR.AMER. > 60 ML/MIN (>=60 (CALC)); GFR OTHER RACES > 60 ML/MIN (>=60 (CALC)); MAGNESIUM 2.3 mg/dL (1.6-2.3); SGOT/AST 23 u/l (19-48); SODIUM 136 mmol/l (137-146)
[2023-08-09 06:07] LABS: ALBUMIN 2.6 g/dL (3.2-5.0); ANION GAP 3 (6-22 (CALC)); BILIRUBIN, TOTAL 0.4 mg/dL (0.2-1.3); CARBON DIOXIDE 44 mmol/l (22-30); TOTAL PROTEIN 5.3 g/dL (6.3-8.2)
--- NOTE | 2023-08-09 07:05 | NUR ---
REPORT GIVEN TO ONCOMING NURSE.
--- NOTE | 2023-08-09 08:00 | NUR ---
pt awake in bed; offers no complaints; RT at bedside for o2 adjustments; no apparent distress noted at this time; assessment completed; pt alert and oriented; denies pain; no n/v; resp slightly labored; lungs coarse throughout; skin color wnl; bipap placed on standby; o2 per nc at 4L nc; pt with copious sputum production; hr reg; strong pulses; no edema noted; paced on monitor; abd soft/distended with bs present; no bm noted per medical technical writer; resendiz to gravity; #22 to lfa flushed and patent; no redness or edema noted at site; dressing x2 removed from coccyx; dressing also present to mid left lower abd with packing intact; repositioned; plan of care/ meds explained; call light within reach; will continue to monitor
--- NOTE | 2023-08-09 08:19 | NUR ---
awake in bed; o2 per nc at 4L; RT at bedside for adjustments; call light within reach; will continue to monitor
--- NOTE | 2023-08-09 08:42 | NUR ---
st present at bedside
--- NOTE | 2023-08-09 09:00 | NUR ---
Dr Hemphill present at bedside to assess pt and discuss plan of care
--- NOTE | 2023-08-09 10:10 | NUR ---
PT SITTING UP IN BED. RESTING. LINENS JUST CHANGED. FLUIDS OFFERED. CALL LIGHT IS WITHIN REACH. BED ALARM IS SET.
--- NOTE | 2023-08-09 12:20 | NUR ---
awake in bed; eating lunch; offers no complaints; iv intact and patent; sr on monitor; call light within reach;
--- NOTE | 2023-08-09 14:10 | NUR ---
resting in bed; request neb tx; o2 sat 91%; no resp distress noted; sr on monitor; call light within reach; will continue to monitor
--- NOTE | 2023-08-09 14:51 | NUR ---
Dr yusuf present at bedside; code status clarified; pt wishes to be DNR
--- NOTE | 2023-08-09 15:57 | NUR ---
awake in bed; placed on bedpan; offers no complaints; will continue to monitor
--- NOTE | 2023-08-09 17:54 | NUR ---
PT CURRENTLY EATING FULL LIQUID DIET DINNER. PT HAD A BOWEL MOVEMENT, WAS CLEANED UP. PT IS ALERT AND ORIENTATED, ANSWERS QUESTIONS APPROPRAITELY. CALL LIGHT IS WITHIN REACH.
--- NOTE | 2023-08-09 20:00 | NUR ---
PATIENT LYING IN BED WITH HOB ELEVATED. NO ACUTE DISTRESS NOTED AT THIS TIME. HE DENIES ANY PAIN OR DISCOMFORT. ASSESSMENT COMPLETED (SEE INTERVENTIONS). WILL CONTINUE TO MONITOR.
--- NOTE | 2023-08-09 22:00 | NUR ---
PATIENT LYING IN BED RESTING COMFORTABLY ON BIPAP. NO ACUTE DISTRESS NOTED.
[2023-08-10] VITALS (23 sets, daily range): BP systolic 125–163; BP diastolic 64–89
--- NOTE | 2023-08-10 | NUR ---
PATIENT SNATCHED OFF BIPAP, HIS SATS DROPPED QUICKLY INTO THE LOW 80S. HE WAS EDUCATED ON THE IMPORTANCE OF KEEPING MASK ON. WILL CONTINUE TO MONITOR.
[2023-08-10 04:53] LABS: HEMATOCRIT 32.3 % (39.0-50.0); HEMOGLOBIN 10.4 g/dl (14.0-18.0); IMMATURE GRANULOCYTES 0.6 % (0.0-5.0); LYMPH% 5.8 % (15-41); MEAN CELL VOLUME 93.6 fL CALC (80.0-100.0); MEAN CORPUSCULAR HGB 30.1 pG CALC (26.0-32.0); MEAN CORPUSCULAR HGB CONC 32.2 g/dL CAL (32.0-36.0); MONO% 7.3 % (2-13); NEUT# 4.35 thou/uL (1.82-7.42); NEUT% 86.3 % (42-76); RED BLOOD COUNT 3.45 mill/uL (4.70-6.10); RED CELL DISTRI WIDTH 13.6 % (11.5-15.5)
[2023-08-10 05:28] LABS: ALBUMIN 2.6 g/dL (3.2-5.0); ALKALINE PHOSPHATASE 53 u/l (38-126); BILIRUBIN, TOTAL 0.3 mg/dL (0.2-1.3); BUN 26 mg/dL (8-23); BUN/CREATININE RATIO 71 (12-20 (CALC)); CHLORIDE 91 mmol/l (95-108); CREATININE 0.4 mg/dL (0.7-1.3); GFR FOR AFR.AMER. > 60 ML/MIN (>=60 (CALC)); GFR OTHER RACES > 60 ML/MIN (>=60 (CALC)); MAGNESIUM 2.3 mg/dL (1.6-2.3); POTASSIUM 3.8 mmol/l (3.5-5.1); SGOT/AST 18 u/l (19-48); SODIUM 137 mmol/l (137-146); TOTAL PROTEIN 5.2 g/dL (6.3-8.2)
[2023-08-10 05:43] LABS: ANION GAP 5 (6-22 (CALC))
[2023-08-10 05:52] LABS: CARBON DIOXIDE 45 mmol/l (22-30)
--- NOTE | 2023-08-10 06:57 | NUR ---
REPORT GIVEN TO ONCOMING NURSE.
--- NOTE | 2023-08-10 07:25 | NUR ---
pt awake in bed; appears anxious; no acute distress noted; pt offers no complaints; assessment completed at this time; pt alert and oriented; denies pain; no n/v nored; resp labored; o2 per nc at 4L; skin color wnl; moist prod cough noted; hr reg; pulses present; no edema noted; sr/st on monitor; abd soft/ distended with bs present; bm this am; resendiz to gravity draining well; cath strap intact; #20 to lh and #22 to lfa saline locked; flushed and patent; no redness or edema noted at sites; dressing cdi to lower abd fold; plan of care/ meds explained; call light within reach; will continue to monitor
--- NOTE | 2023-08-10 07:35 | NUR ---
Dr Easton present at bedside to assess pt and discuss plan of care
--- NOTE | 2023-08-10 08:00 | NUR ---
awake in bed; rt at bedside; st on monitor; call light within reach; will continue to monitor
--- NOTE | 2023-08-10 09:40 | NUR ---
RT Noel notified of hypoxia; RT at bedside for assessment and adjustment; will continue to monitor
--- NOTE | 2023-08-10 10:01 | NUR ---
resting in bed with eyes closed; sr/ pvc on monitor; o2 per vapotherm, adjusted per rt; call light within reach; will continue to monitor
--- NOTE | 2023-08-10 11:10 | NUR ---
pt with complaints of sob; resp lab; RT Noel notified; pt placed on bipap
--- NOTE | 2023-08-10 12:04 | NUR ---
pt resting in bed with eyes closed; easily aroused; bipap intact and maintained; sr on monitor; call light within reach
--- NOTE | 2023-08-10 14:14 | NUR ---
awake in bed; request sandwich; diet explained; bipap remains intact; sr on monitor; call light within reach; will continue to monitor
--- NOTE | 2023-08-10 16:12 | NUR ---
pt resting in bed with eyes closed; sr on monitor; bipap intact and mainted; call light within reach; will continue to monitor
--- NOTE | 2023-08-10 18:16 | NUR ---
resting in bed with eyes closed; bipap continued; meal held; sr on monitor; resendiz to gravity; call light within reach
--- NOTE | 2023-08-10 18:34 | NUR ---
dressing changed to lower abd fold wound as per orders
--- NOTE | 2023-08-10 18:40 | NUR ---
CALLED [employer] FOR PATIENT PLACEMENT. SPOKE TO ALEM AND WAS GIVEN CONFIRMATION NUMBER [id number].
--- NOTE | 2023-08-10 19:00 | NUR ---
REPORT RECEIVED FROM OFF GOING NURSE.
--- NOTE | 2023-08-10 20:00 | NUR ---
PATIENT NOTED LYING IN BED WITH HOB ELEVATED WHILE ON BIPAP. HE IS REQUESTING THAT IT BE TAKEN OFF SO THAT HE COULD EAT. RT ATTEMPTED TO REMOVE BIPAP MASK, PATIENT BEGAN TO HYPERVENTILATE. PATIENT WAS EDUCATED ON THE IMPORTANCE OF KEEPING MASK ON. NO ACUTE DISTRESS NOTED. HE DENIES ANY PAIN OR DISCOMFORT AT THIS TIME. ASSESSMENT COMPLETED (SEE INTERVENTIONS). WILL CONTINUE TO MONITOR.
--- NOTE | 2023-08-10 22:00 | NUR ---
NO CHANGES NOTED AT THIS TIME. WILL CONTINUE TO MONITOR.
[2023-08-11] VITALS (23 sets, daily range): BP systolic 98–153; BP diastolic 61–107
--- NOTE | 2023-08-11 | NUR ---
NO CHANGES NOTED. PATIENT RESTING IN BED WITH HOB ELEVATED. BIPAP NOTED IN PLACE. VSS. WILL CONTINUE TO MONITOR.
--- NOTE | 2023-08-11 01:30 | NUR ---
LARGE LOOSE BOWEL MOVEMENT NOTED, PATIENT HAS COMPLETE BED CHANGE.
--- NOTE | 2023-08-11 01:40 | NUR ---
PATIENT HAS 2ND INCONTINENT BOWEL MOVEMENT AT THIS TIME. WILL CONTINUE TO MONITOR.
--- NOTE | 2023-08-11 01:58 | NUR ---
PATIENT NEEDING TO BE CHANGED DUE TO LARGE LOOSE STOOL. UPON CHANGING PATIENT, HE BEGAN TO GO. HE WAS OFFERED BEDSIDE COMMODE. GOT UP TO BEDSIDE COMMODE WITHOUT ANY DIFFICULTY. WILL CONTINUE TO MONITOR.
--- NOTE | 2023-08-11 04:00 | NUR ---
PATIENT SLEEPING COMFORTABLY WITH NO ACUTE DISTRESS NOTED. WILL CONTINUE TO MONITOR.
[2023-08-11 07:29] LABS: BASO% 0.2 % (0-3); HEMATOCRIT 33.6 % (39.0-50.0); HEMOGLOBIN 10.7 g/dl (14.0-18.0); IMMATURE GRANULOCYTES 0.5 % (0.0-5.0); LYMPH% 9.5 % (15-41); MEAN CELL VOLUME 94.1 fL CALC (80.0-100.0); MEAN CORPUSCULAR HGB CONC 31.8 g/dL CAL (32.0-36.0); MONO% 10.4 % (2-13); NEUT# 4.53 thou/uL (1.82-7.42); NEUT% 79.4 % (42-76); RED BLOOD COUNT 3.57 mill/uL (4.70-6.10); RED CELL DISTRI WIDTH 13.7 % (11.5-15.5)
--- NOTE | 2023-08-11 07:40 | NUR ---
pt awake in bed; no apparent distress noted; assessment completed at this time; pt alert and oriented; denies pain; no n/v noted; resp even and unlabored; lungs diminished; skin color wnl; bipap intact, pt requesting to be removed from bipap; RT Haan at bedside, pt converted to vapotherm 40/30; moist loose cough noted; hr reg; pulses present; no edema noted; st on monitor; abd soft/distended with bs present; multiple bm's throughout the night; resendiz to gravity draining well; cath strap intact; #22 to lfa saline locked; no redness or edema noted; pt repositioend, pt instructed to reposition self as well; plan of care/meds explained; call light within reach; will continue to monitor
[2023-08-11 07:47] LABS: ALBUMIN 2.7 g/dL (3.2-5.0); ALKALINE PHOSPHATASE 56 u/l (38-126); BUN 38 mg/dL (8-23); BUN/CREATININE RATIO 81 (12-20 (CALC)); CHLORIDE 93 mmol/l (95-108); CREATININE 0.5 mg/dL (0.7-1.3); GFR FOR AFR.AMER. > 60 ML/MIN (>=60 (CALC)); GFR OTHER RACES > 60 ML/MIN (>=60 (CALC)); MAGNESIUM 2.3 mg/dL (1.6-2.3); POTASSIUM 3.7 mmol/l (3.5-5.1); SGOT/AST 21 u/l (19-48); SODIUM 138 mmol/l (137-146); TOTAL PROTEIN 5.4 g/dL (6.3-8.2)
--- NOTE | 2023-08-11 07:57 | NUR ---
pt awake in bed; resp labored; pt expresses shortness of breath and request bipap; o2 sat 84%; RT notified, pt returned to bipap with 40% FiO2; call light within reach; will continue to monitor
[2023-08-11 08:22] LABS: ANION GAP 6 (6-22 (CALC)); BILIRUBIN, TOTAL 0.5 mg/dL (0.2-1.3); CARBON DIOXIDE 43 mmol/l (22-30)
--- NOTE | 2023-08-11 08:39 | NUR ---
Dr Easton present at bedside to assess pt and discuss plan of care
--- NOTE | 2023-08-11 09:15 | NUR ---
dressing changed to lower abd wall as per orders
--- NOTE | 2023-08-11 10:05 | NUR ---
resting in bed with eyes closed; no apparent distress noted; bipap intact and maintained; sr on monitor; call light within reach
--- NOTE | 2023-08-11 12:05 | NUR ---
Dr Easton informed per this automobile service writer of positive occult blood, no PPI ordered. verbal order to consult Dr Michael;
--- NOTE | 2023-08-11 12:30 | NUR ---
resting in bed with eyes closed; no apparent distress noted; sr on monitor; bipap intact and maintained; call light within reach
--- NOTE | 2023-08-11 14:06 | NUR ---
resting in bed with eyes closed; sr on monitor; call light within reach; will continue to monitor
--- NOTE | 2023-08-11 14:40 | NUR ---
pt transferred to air mattress
--- NOTE | 2023-08-11 16:04 | NUR ---
awake in bed; offers no complaints; no distress noted; bipap intact and maintained; sr on monitor; call light within reach; will continue to monitor
--- NOTE | 2023-08-11 17:56 | NUR ---
resting in bed with eyes closed; bipap intact and maintained; st on monitor; call light within reach
--- NOTE | 2023-08-11 19:00 | NUR ---
RECEIVING REPORT FROM OFF RIRI NURSE. PATIENT NOTED IN THE ROOM BANGING ON SIDE RAIL WITH HIS CALL LIGHT, DEMANDING ATTENTION. AIDE JUST LEFT ROOM CHANGING PATIENT. SHE WAS DISCARDING TRASH HE BEGAN CALLING AGAIN. UPON ARRIVING IN THE ROOM. PATIENT STATED THAT HE WANTED STAFF TO MOVE THE HEAD OF HIS BED UP. PATIENT EDUCATED AGAIN ON HOW TO USE BUTTONS ON BED. HE STATED "THATS WHAT I CALL YOU FOR". WILL CONTINUE TO MONITOR.
--- NOTE | 2023-08-11 19:15 | NUR ---
PATIENT NOTED OPENING HIS MASK, SPITTING ON FLOOR, BANGING ON BED RAIL AT THIS TIME. WILL CONTINUE TO MONITOR.
--- NOTE | 2023-08-11 20:00 | NUR ---
PATIENT NOTED LYING IN BED WITH HOB ELEVATED. ASSESSMENT COMPLETED (SEE INTERVENTIONS. NO ACUTE DISTRESS NOTED AT THIS TIME. WILL CONTINUE TO MONITOR.
--- NOTE | 2023-08-11 22:00 | NUR ---
PATIENT NOTED REMOVING AND REFUSING TO KEEP MONITORING DEVICES ON. THE BIPAP MACHINE CONSTANTLY GOING OFF DUE TO PATIENT REMOVING AND OPENING MASK. WILL CONTINUE TO MONITOR.
[2023-08-12] VITALS (26 sets, daily range): BP systolic 53–176; BP diastolic 36–160
--- NOTE | 2023-08-12 | NUR ---
PATIENT GETTING OFF BEDSIDE COMMODE, BACK IN BED. NO ACUTE DISTRESS NOTED. HE REFUSES TO WEAR GOWN OR REMAIN ON MONITORING DEVICES. WILL CONTINUE TO MONITOR.
--- NOTE | 2023-08-12 01:21 | NUR ---
PATIENT CURRENTLY ON BEDSIDE COMMODE. HE CALLED TO GET OFF BEDSIDE COMMODE, UPON ENTERING ROOM PATIENT STATED "IM STILL GOING". PATIENT LEFT ON BEDSIDE COMMID TO FINISH.
--- NOTE | 2023-08-12 03:14 | NUR ---
PATIENT NOTED SITTING ON BEDSIDE COMMODE, HE POURED HIMSELF A GLASS OF WATER AND WAS ABLE TO LIFT MASK HIMSELF TO TAKE A DRINK.
--- NOTE | 2023-08-12 03:24 | NUR ---
PATIENT STILL ON BEDSIDE COMMODE. HE WAS OBSERVED PULLING THE HOSE FROM THE BIPAP.
--- NOTE | 2023-08-12 05:28 | NUR ---
PATIENT IN BED WITH HOB ELEVATED. NO ACUTE DISTRESS NOTED AT THIS TIME.
[2023-08-12 05:41] LABS: BASO% 0.1 % (0-3); HEMOGLOBIN 9.3 g/dl (14.0-18.0); IMMATURE GRANULOCYTES 1.1 % (0.0-5.0); LYMPH% 8.2 % (15-41); MEAN CELL VOLUME 94.9 fL CALC (80.0-100.0); MEAN CORPUSCULAR HGB 29.4 pG CALC (26.0-32.0); MONO% 4.5 % (2-13); NEUT# 7.02 thou/uL (1.82-7.42); NEUT% 86.1 % (42-76); RED BLOOD COUNT 3.16 mill/uL (4.70-6.10)
[2023-08-12 05:53] LABS: BUN 49 mg/dL (8-23); BUN/CREATININE RATIO 80 (12-20 (CALC)); CHLORIDE 95 mmol/l (95-108); CREATININE 0.6 mg/dL (0.7-1.3); GFR FOR AFR.AMER. > 60 ML/MIN (>=60 (CALC)); GFR OTHER RACES > 60 ML/MIN (>=60 (CALC)); POTASSIUM 4.2 mmol/l (3.5-5.1); SODIUM 141 mmol/l (137-146)
[2023-08-12 06:00] LABS: ANION GAP 9 (6-22 (CALC))
[2023-08-12 06:06] LABS: CARBON DIOXIDE 41 mmol/l (22-30)
--- NOTE | 2023-08-12 07:00 | NUR ---
recieved report from pm rn. pt lying in bed with eyes closed. Bipap in place. O2 sat 88%. Pt VSS, all safety measures in place and functioning properly. No needs at this time.
--- NOTE | 2023-08-12 14:50 | NUR ---
patient is resting in bed, bipap on, SPO2 at 99%
--- NOTE | 2023-08-12 16:09 | NUR ---
complete bed linen change, patient had dark watery dark diarrhea, perineal care provided, redness to perineum, barrier cream applied, patient remains on the bipap, heart monitor shows sinus tach
--- NOTE | 2023-08-12 18:04 | NUR ---
patient is resting in bed, respirations even and unlabored, patient remains on the bipap
--- NOTE | 2023-08-12 18:49 | NUR ---
PLACED PATIENT ON BEDPAN, PATIENT HAD SMALL AMOUNT OF DARK LIQUID STOOLS, PERINEAL CARE PROVIDED
--- NOTE | 2023-08-12 19:00 | NUR ---
REPORT RECEIVED FROM OFF GOING NURSE. ASSESSMENT COMPLETED (SEE INTERVENTIONS). VSS. PATIENT CURRENTLY ON BIPAP. HE REMOVES BIPAP PERIODICALLY TO SUCTION HIMSELF. ABD DRESSING CHANGED AT THIS TIME. HE DENIES ANY PAIN OR DISCOMFORT. WILL CONTINUE TO MONITOR.
--- NOTE | 2023-08-12 22:00 | NUR ---
PATIENT NOTED LYING IN BED ON BIPAP WITH NO ACUTE DISTRESS NOTED. WILL CONTINUE TO MONITOR.
[2023-08-13] VITALS (36 sets, daily range): BP systolic 38–148; BP diastolic 22–91
--- NOTE | 2023-08-13 | NUR ---
PATIENT BEATING ON BED RAIL WITH CONTROLLER AT [facility] TIME. NO ACUTE DISTRESS NOTED. VSS. WILL CONTINUE TO MONITOR.
--- NOTE | 2023-08-13 02:00 | NUR ---
NO CHANGES NOTED. WILL CONTINUE TO MONITOR..
--- NOTE | 2023-08-13 04:00 | NUR ---
PATIENT TAKES OFF BIPAP MASK OCCASSIONALLY, HE ALSO PUTS IT BACK ON HIMSELF. VSS. NO ACUTE DISTRESS NOTED. WILL CONTINUE TO MONITOR.
--- NOTE | 2023-08-13 06:00 | NUR ---
PATIENT RESTING COMFORTABLY WITH NO ACUTE DISTRESS NOTED AT THIS TIME.
--- NOTE | 2023-08-13 08:00 | NUR ---
PT IN BED WITH HOB UP, BIPAP ON. PT IS ALERT AND ORIENTED X3, PT HAS C/O HEADACHE AT THIS TIME, TYLENOL GIVEN PRN. PT IV SITE TO L WRIST CLEAN, SL . LAURA INTACT AND DRAINING DARK, YELLOW URINE. PT ABD IS SOFT WITH ACTIVE BS. LUNGS COARSE THROUGHOUT. PT HAS CALL LIGHT WITHIN REACH AND SAFETY MEASURES IN PLACE AT THIS TIME.
[2023-08-13 09:05] LABS: ANION GAP 14 (6-22 (CALC)); CHLORIDE 101 mmol/l (95-108); CREATININE 0.8 mg/dL (0.7-1.3); GFR FOR AFR.AMER. > 60 ML/MIN (>=60 (CALC)); GFR OTHER RACES > 60 ML/MIN (>=60 (CALC)); POTASSIUM 4.7 mmol/l (3.5-5.1); SODIUM 140 mmol/l (137-146)
[2023-08-13 09:08] LABS: BUN 78 mg/dL (8-23); BUN/CREATININE RATIO 98 (12-20 (CALC)); CARBON DIOXIDE 30 mmol/l (22-30)
[2023-08-13 09:46] LABS: BASO% 0.1 % (0-3); IMMATURE GRANULOCYTES 2.5 % (0.0-5.0); MEAN CELL VOLUME 97.4 fL CALC (80.0-100.0); MEAN CORPUSCULAR HGB 30.3 pG CALC (26.0-32.0); MEAN CORPUSCULAR HGB CONC 31.1 g/dL CAL (32.0-36.0); NEUT# 9.89 thou/uL (1.82-7.42); NEUT% 78.4 % (42-76); RED BLOOD COUNT 2.28 mill/uL (4.70-6.10); RED CELL DISTRI WIDTH 15.1 % (11.5-15.5)
[2023-08-13 09:55] LABS: HEMATOCRIT 22.2 % (39.0-50.0); HEMOGLOBIN 6.9 g/dl (14.0-18.0)
--- NOTE | 2023-08-13 10:00 | NUR ---
PT IN BED, L WRIST IV DISLODGED, REMOVED WITH CATHETER INTCACT. NEW IV START # 20 TO RAC, FLUSHED WELL. PT HAS CALL LIGHT WITHIN REACH AND SAFETY MEASURES IN PLACE AT THIS TIME.
--- NOTE | 2023-08-13 12:00 | NUR ---
PT REMAINS ON BIPAP. PT HAS NO GGOD IV SITE AT THIS TIME, ORDER RECEIVED FOR CENTRAL LINE PLACEMENT; DR. GOODMAN IS AWARE. PT CONTINUES TO HAVE LOOSE STOOLS. PT HAS CALL LIGHT WITHIN REACH AND SAFETY MEASURES IN PLACE AT THIS TIME.
--- NOTE | 2023-08-13 13:00 | NUR ---
CENTRAL LINE PLACED, ORDER ENTERED FOR CXR TO VERIFY PLACEMENT. PT TOLERATED PROCEDURE WELL.
[2023-08-13 14:26] LABS: BASO% 0.1 % (0-3); IMMATURE GRANULOCYTES 3.1 % (0.0-5.0); MEAN CELL VOLUME 96.9 fL CALC (80.0-100.0); MEAN CORPUSCULAR HGB 30.4 pG CALC (26.0-32.0); MEAN CORPUSCULAR HGB CONC 31.4 g/dL CAL (32.0-36.0); MONO% 5.1 % (2-13); NEUT# 12.07 thou/uL (1.82-7.42); NEUT% 84.7 % (42-76); RED BLOOD COUNT 1.94 mill/uL (4.70-6.10); RED CELL DISTRI WIDTH 15.4 % (11.5-15.5)
[2023-08-13 14:27] LABS: HEMATOCRIT 18.8 % (39.0-50.0); HEMOGLOBIN 5.9 g/dl (14.0-18.0)
--- NOTE | 2023-08-13 14:45 | NUR ---
PT STARTED ON ONE UNIT OF PRBC
--- NOTE | 2023-08-13 16:00 | NUR ---
PT RECEIVING PRBC, NO REACTIONS NOTED; VSS. PT CONTINUES ON BIPAP. LAURA INTACT.
--- NOTE | 2023-08-13 18:02 | NUR ---
PT IN BED, HOB UP. PT REMAINS ON BIPAP. PT VSS STABLE. PT LAURA INTACT AND DRAINING CLEAT, YELLOW URINE. PT HAS SAFETY MEASURES IN PLACE AT THIS TIME.
[2023-08-13 19:12] LABS: HEMATOCRIT 31.6 % (39.0-50.0); HEMOGLOBIN 10.5 g/dl (14.0-18.0); MEAN CELL VOLUME 90.8 fL CALC (80.0-100.0); MEAN CORPUSCULAR HGB 30.2 pG CALC (26.0-32.0); MEAN CORPUSCULAR HGB CONC 33.2 g/dL CAL (32.0-36.0); RED BLOOD COUNT 3.48 mill/uL (4.70-6.10); RED CELL DISTRI WIDTH 14.4 % (11.5-15.5)
--- NOTE | 2023-08-13 19:30 | NUR ---
SBAR RECEIVED FROM EDWARD VILLANUEVA. PATIENT RESTING IN BED, BIPAP IN USE. NO DISTRESS NOTED. CALL LIGHT WITHIN REACH.
[2023-08-13 21:19] LABS: HEMATOCRIT 32.2 % (39.0-50.0); HEMOGLOBIN 10.6 g/dl (14.0-18.0); MEAN CORPUSCULAR HGB 29.9 pG CALC (26.0-32.0); MEAN CORPUSCULAR HGB CONC 32.9 g/dL CAL (32.0-36.0); RED BLOOD COUNT 3.54 mill/uL (4.70-6.10); RED CELL DISTRI WIDTH 14.6 % (11.5-15.5)
[2023-08-14] VITALS (11 sets, daily range): BP systolic 115–145; BP diastolic 57–83
[2023-08-14 02:09] LABS: BASO% 0.1 % (0-3); HEMATOCRIT 30.9 % (39.0-50.0); HEMOGLOBIN 10.1 g/dl (14.0-18.0); IMMATURE GRANULOCYTES 1.6 % (0.0-5.0); LYMPH% 7.4 % (15-41); MEAN CELL VOLUME 92.8 fL CALC (80.0-100.0); MEAN CORPUSCULAR HGB 30.3 pG CALC (26.0-32.0); MEAN CORPUSCULAR HGB CONC 32.7 g/dL CAL (32.0-36.0); MONO% 2.7 % (2-13); NEUT# 10.41 thou/uL (1.82-7.42); NEUT% 88.2 % (42-76); RED BLOOD COUNT 3.33 mill/uL (4.70-6.10); RED CELL DISTRI WIDTH 15.2 % (11.5-15.5)
[2023-08-14 02:22] LABS: ALBUMIN 2.2 g/dL (3.2-5.0); ALKALINE PHOSPHATASE 47 u/l (38-126); BUN 79 mg/dL (8-23); BUN/CREATININE RATIO 88 (12-20 (CALC)); CHLORIDE 103 mmol/l (95-108); CREATININE 0.9 mg/dL (0.7-1.3); GFR FOR AFR.AMER. > 60 ML/MIN (>=60 (CALC)); GFR OTHER RACES > 60 ML/MIN (>=60 (CALC)); SODIUM 143 mmol/l (137-146); TOTAL PROTEIN 4.4 g/dL (6.3-8.2)
[2023-08-14 02:32] LABS: POTASSIUM 3.7 mmol/l (3.5-5.1)
[2023-08-14 02:33] LABS: ANION GAP 2 (6-22 (CALC)); BILIRUBIN, TOTAL 0.8 mg/dL (0.2-1.3); CARBON DIOXIDE 42 mmol/l (22-30); SGOT/AST 1219 u/l (19-48)
--- NOTE | 2023-08-14 02:44 | NUR ---
Patient has a critical lab given by foundry laborer coreroom with co2 of 42, MD notified and No new orders given.
[2023-08-14 05:20] LABS: BASO% 0.1 % (0-3); HEMATOCRIT 30.7 % (39.0-50.0); HEMOGLOBIN 10.1 g/dl (14.0-18.0); LYMPH% 7.2 % (15-41); MEAN CELL VOLUME 91.4 fL CALC (80.0-100.0); MEAN CORPUSCULAR HGB 30.1 pG CALC (26.0-32.0); MEAN CORPUSCULAR HGB CONC 32.9 g/dL CAL (32.0-36.0); MONO% 3.1 % (2-13); NEUT# 10.84 thou/uL (1.82-7.42); NEUT% 87.6 % (42-76); RED BLOOD COUNT 3.36 mill/uL (4.70-6.10); RED CELL DISTRI WIDTH 15.1 % (11.5-15.5)
[2023-08-14 05:36] LABS: ANION GAP 4 (6-22 (CALC)); BUN 74 mg/dL (8-23); BUN/CREATININE RATIO 81 (12-20 (CALC)); CHLORIDE 103 mmol/l (95-108); CREATININE 0.9 mg/dL (0.7-1.3); GFR FOR AFR.AMER. > 60 ML/MIN (>=60 (CALC)); GFR OTHER RACES > 60 ML/MIN (>=60 (CALC)); POTASSIUM 3.7 mmol/l (3.5-5.1); SODIUM 143 mmol/l (137-146)
[2023-08-14 05:50] LABS: CARBON DIOXIDE 40 mmol/l (22-30)
--- NOTE | 2023-08-14 07:25 | NUR ---
PT REPORT RECEIVED [facility] TECHNICAL REP. ADVISED PT IS TO BE TRANSFERRED FOR ENDOSCOPE IF POSSIBLE. REPORT CALLED TO [facility] FOR [facility], [facility] CONTACTED. SPOKE WITH PT AND ADVISED OF UPDATE OF TRANSFER, PT AT THIS TIME HAS BEEN REMOVED FROM BIPAP AND SATTING AT 96% ON 3 L N/C. PT ALERT/ORIENTED , LAURA DRAINING DARK BEKA URINE. REENFORCED THE NEED FOR NPO. [facility] RUNNING AT 10. . [facility] CALLED BACK AND STATED THAT THEY WERE GIVING US A TIME OF 1030 FOR TRANSFER.
--- NOTE | 2023-08-14 10:27 | NUR ---
PT REMAINS ON 08 17, SATS 98
--- NOTE | 2023-08-14 13:38 | NUR ---
CONTACTED [facility] TO SCHEDULE PICK-UP OF THE P500 AIR MATTRESS ASSIGNED TO THIS PATIENT. I SPOKE WITH LEONARDA AT 1338 HRS. CONFIRMATION # [id number].
[2023-08-20] MEDS ORDERED: PANTOPRAZOLE SO40 M1 PO (09:51)
[2023-08-20] MEDS ORDERED: PREDNISONE50 MG PO (10:00)
[2023-08-20] MEDS ORDERED: ZITHROMAX250 MG PO (10:00)
== END 2023-08-14 10:45 | DRG 190 ==
LOC: ICU 21:40
PROVIDERS: Student in an Organized Health Care Education/Training Program; ADMIT Internal Medicine; ATTEND Internal Medicine
PROC: 5A09357 Assistance with Respiratory Ventilation, Less than 24 Consecutive Hours, Continuous Positive Airway Pressure (ICD-10-PCS; principal; 2023-08-08)
PROC: 02HV33Z Insertion of Infusion Device into Superior Vena Cava, Percutaneous Approach (ICD-10-PCS; 2023-08-13)
PROC: B548ZZA Ultrasonography of Superior Vena Cava, Guidance (ICD-10-PCS; 2023-08-13)
PROC: 30243N1 Transfusion of Nonautologous Red Blood Cells into Central Vein, Percutaneous Approach (ICD-10-PCS; 2023-08-13)
PROC: 30243N1 Transfusion of Nonautologous Red Blood Cells into Central Vein, Percutaneous Approach (ICD-10-PCS; 2023-08-13)
PROC: 30243N1 Transfusion of Nonautologous Red Blood Cells into Central Vein, Percutaneous Approach (ICD-10-PCS; 2023-08-13)
DX: J44.1 Chronic obstructive pulmonary disease with (acute) exacerbation (principal); I50.21 Acute systolic (congestive) heart failure; J18.9 Pneumonia, unspecified organism; J69.0 Pneumonitis due to inhalation of food and vomit; J96.21 Acute and chronic respiratory failure with hypoxia; L03.311 Cellulitis of abdominal wall; K92.1 Melena; B95.62 Methicillin resistant Staphylococcus aureus infection as the cause of diseases classified elsewhere; B96.89 Other specified bacterial agents as the cause of diseases classified elsewhere; L89.152 Pressure ulcer of sacral region, stage 2; J44.0 Chronic obstructive pulmonary disease with (acute) lower respiratory infection; D64.9 Anemia, unspecified; I11.0 Hypertensive heart disease with heart failure; G47.33 Obstructive sleep apnea (adult) (pediatric); F14.10 Cocaine abuse, uncomplicated; I25.10 Atherosclerotic heart disease of native coronary artery without angina pectoris; E78.5 Hyperlipidemia, unspecified; F17.201 Nicotine dependence, unspecified, in remission; N40.0 Benign prostatic hyperplasia without lower urinary tract symptoms; F41.9 Anxiety disorder, unspecified; F32.A Depression, unspecified; Z91.199 Patient's noncompliance with other medical treatment and regimen due to unspecified reason; Z66 Do not resuscitate; Z99.89 Dependence on other enabling machines and devices
CPT/HCPCS: J0692; J1650; P9016; S0164

== ENCOUNTER 2023-08-18 22:53 | Observation (INO) | payer MEDICARE, MEDICAID ==
[~2023-08-18] VITALS: Ht 172.7 cm; Wt 89.4 kg
[2023-08-18 23:16] VITALS: BP 116/72
[2023-08-18 23:30] VITALS: BP 120/69
[2023-08-18 23:46] VITALS: BP 125/74
[2023-08-19] VITALS (28 sets, daily range): BP systolic 101–127; BP diastolic 59–83
[2023-08-19] MEDS ORDERED: MAGNESIUM HYDROXIDE 30 ML UDC PO PRN (01:15)
[2023-08-19] MEDS ORDERED: ACETAMINOPHEN 325 MG/TAB PO PRN (01:15)
[2023-08-19] MEDS ORDERED: ALBUTEROL SULFATE 8 GM INH IN SCH (01:15)
[2023-08-19] MEDS ORDERED: LABETALOL HCL 20 MG/ 4 ML CARTRG IV PRN (01:20)
[2023-08-19] MEDS ORDERED: MIDAZOLAM HCL 2 MG/2 ML VIAL IV PRN (01:20)
[2023-08-19] MEDS ORDERED: traMADol HCL 50 MG/TAB PO PRN (01:20)
[2023-08-19] MEDS ORDERED: GUAIFENESIN 600 MG/TAB PO PRN (01:25)
[2023-08-19] MEDS ORDERED: traZODone HCL 50 MG/TAB PO SCH ×2 (01:30→21:00)
[2023-08-19] MEDS ORDERED: CLARIFY DOSE IN PRN (02:05)
[2023-08-19] MEDS ORDERED: CLARIFY DOSE PO PRN (02:05)
[2023-08-19 06:51] LABS: BASO% 0.2 % (0-3); HEMATOCRIT 29.9 % (39.0-50.0); HEMOGLOBIN 9.8 g/dl (14.0-18.0); IMMATURE GRANULOCYTES 0.2 % (0.0-5.0); LYMPH% 22.5 % (15-41); MEAN CELL VOLUME 94.6 fL CALC (80.0-100.0); MEAN CORPUSCULAR HGB CONC 32.8 g/dL CAL (32.0-36.0); MONO% 9.5 % (2-13); NEUT# 2.86 thou/uL (1.82-7.42); NEUT% 67.6 % (42-76); RED BLOOD COUNT 3.16 mill/uL (4.70-6.10); RED CELL DISTRI WIDTH 15.5 % (11.5-15.5)
[2023-08-19] MEDS ORDERED: IPRATROPIUM-Albuterol 0.5MG-2.5MG/3 ML NEB SCH (07:00)
[2023-08-19 07:09] LABS: ALBUMIN 2.3 g/dL (3.2-5.0); ALKALINE PHOSPHATASE 59 u/l (38-126); CALCULATED LDLCHOLESTEROL 32 mg/dL (62-129 (CALC)); CHLORIDE 98 mmol/l (95-108); CREATININE 0.5 mg/dL (0.7-1.3); GFR FOR AFR.AMER. > 60 ML/MIN (>=60 (CALC)); GFR OTHER RACES > 60 ML/MIN (>=60 (CALC)); HDL CHOLESTEROL 31 mg/dL (39.0-59.0); MAGNESIUM 2.1 mg/dL (1.6-2.3); POTASSIUM 3.4 mmol/l (3.5-5.1); SODIUM 137 mmol/l (137-146); TOTAL PROTEIN 4.8 g/dL (6.3-8.2); TOTAL TRIGLYCERIDES 142 mg/dl (0-149); VLDL CHOLESTROL 28 mg/dl (0-38 (CALC))
[2023-08-19 07:27] LABS: ANION GAP 3 (6-22 (CALC)); CARBON DIOXIDE 39 mmol/l (22-30)
[2023-08-19 07:28] LABS: BILIRUBIN, TOTAL 0.4 mg/dL (0.2-1.3); BUN 7 mg/dL (8-23); BUN/CREATININE RATIO 14 (12-20 (CALC)); CHOLESTEROL HDL RATIO 2.9 (<4.4 (CALC)); SGOT/AST 63 u/l (19-48); TOTAL CHOLESTEROL 91 mg/dl (0-199)
[2023-08-19] MEDS ORDERED: methylPREDNISolone Sod Succ 40 MG/ML SDV IV SCH (09:00)
[2023-08-19] MEDS ORDERED: MULTIPLE VITAMIN TABLET PO SCH (09:00)
[2023-08-19] MEDS ORDERED: PANTOPRAZOLE SODIUM Sesquihydr 40 MG/TAB PO SCH (09:00)
[2023-08-19] MEDS ORDERED: BENZONATATE 200 MG/CAP PO PRN (09:35)
[2023-08-19] MEDS ORDERED: POTASSIUM CHLORIDE 20 MEQ/PKT POWDER PO SCH (10:00)
[2023-08-19] MEDS ORDERED: ALPRAZolam 0.5 MG/TAB PO PRN (10:00)
[2023-08-19] MEDS ORDERED: TAMSULOSIN HCL 0.4 MG CAP PO SCH (10:30)
[2023-08-19] MEDS ORDERED: ENOXAPARIN SODIUM 40 MG/0.4 ML SYR SC SCH (21:00)
[2023-08-19] MEDS ORDERED: ATORVASTATIN CALCIUM 40 MG/TAB PO SCH (21:00)
[2023-08-19] MEDS ORDERED: MELATONIN 3 MG/TAB PO SCH (21:00)
[2023-08-20 05:44] LABS: BASO% 0.4 % (0-3); HEMATOCRIT 29.9 % (39.0-50.0); HEMOGLOBIN 9.5 g/dl (14.0-18.0); IMMATURE GRANULOCYTES 0.4 % (0.0-5.0); LYMPH% 8.1 % (15-41); MEAN CELL VOLUME 97.7 fL CALC (80.0-100.0); MEAN CORPUSCULAR HGB CONC 31.8 g/dL CAL (32.0-36.0); MONO% 1.6 % (2-13); NEUT# 2.31 thou/uL (1.82-7.42); NEUT% 89.5 % (42-76); RED BLOOD COUNT 3.06 mill/uL (4.70-6.10); RED CELL DISTRI WIDTH 15.6 % (11.5-15.5)
[2023-08-20 06:13] LABS: BUN 9 mg/dL (8-23); BUN/CREATININE RATIO 20 (12-20 (CALC)); CHLORIDE 98 mmol/l (95-108); CREATININE 0.5 mg/dL (0.7-1.3); GFR FOR AFR.AMER. > 60 ML/MIN (>=60 (CALC)); GFR OTHER RACES > 60 ML/MIN (>=60 (CALC)); SODIUM 137 mmol/l (137-146)
[2023-08-20 06:20] LABS: ANION GAP 1 (6-22 (CALC)); POTASSIUM 4.4 mmol/l (3.5-5.1)
[2023-08-20 06:21] LABS: CARBON DIOXIDE 42 mmol/l (22-30)
[2023-08-20] MEDS ORDERED: ZITHROMAX250 MG PO (11:42)
[2023-08-20] MEDS ORDERED: PANTOPRAZOLE SO40 M1 PO (11:42)
[2023-08-20] MEDS ORDERED: PREDNISONE50 MG PO (11:42)
== END 2023-08-20 13:45 ==
LOC: ED-I 22:53 → ICU 22:53 → ED-I 22:53 → ICU 08-19 07:25
PROVIDERS: ADMIT Student in an Organized Health Care Education/Training Program; ATTEND Student in an Organized Health Care Education/Training Program
PROC: 02HV33Z Insertion of Infusion Device into Superior Vena Cava, Percutaneous Approach (ICD-10-PCS; principal; 2023-08-19)
PROC: B518ZZA Fluoroscopy of Superior Vena Cava, Guidance (ICD-10-PCS; 2023-08-19)
DX: K22.11 Ulcer of esophagus with bleeding (principal); K29.71 Gastritis, unspecified, with bleeding; J44.1 Chronic obstructive pulmonary disease with (acute) exacerbation; J96.12 Chronic respiratory failure with hypercapnia; J96.11 Chronic respiratory failure with hypoxia; I25.10 Atherosclerotic heart disease of native coronary artery without angina pectoris; K44.9 Diaphragmatic hernia without obstruction or gangrene; I50.9 Heart failure, unspecified; E78.5 Hyperlipidemia, unspecified; R13.10 Dysphagia, unspecified; N40.1 Benign prostatic hyperplasia with lower urinary tract symptoms; R33.8 Other retention of urine; N31.9 Neuromuscular dysfunction of bladder, unspecified; F14.10 Cocaine abuse, uncomplicated; F17.200 Nicotine dependence, unspecified, uncomplicated; Z91.199 Patient's noncompliance with other medical treatment and regimen due to unspecified reason; Z96.0 Presence of urogenital implants; Z99.81 Dependence on supplemental oxygen; Z87.01 Personal history of pneumonia (recurrent)
CPT/HCPCS: J1650

== ENCOUNTER 2023-12-31 09:48 | Inpatient (IN) | payer OTHER, MEDICARE, MEDICAID ==
[2023-12-31] VITALS (40 sets, daily range): BP systolic 81–157; BP diastolic 40–117
[~2023-12-31] VITALS: Ht 172.7 cm; Wt 95.0 kg
[~2023-12-31 09:48] MED LIST changes: +AZITHROMYCIN500 MG PO; +DUPIXENT300 MG/21; +KLOR-CON M2020 MEQ PO; +LOSARTAN POTASS50 MG PO; +PANTOPRAZOLE SO40 M1 PO; +PROTONIX40 M2 PO; +QC ASPIRIN LOW81 M1 PO; +SEROQUEL25 MG; +TERAZOSIN5 MG PO; +[UNRECOGNIZED DRUG - OTHER]
[2023-12-31] MEDS ORDERED: ALBUTEROL SULFATE 2.5 MG VIAL IN ONE (10:00)
[2023-12-31] MEDS ORDERED: DOXYCYCLINE HYCLATE 100 MG in SODIUM CHLORIDE 0.9% 100 ML IV ONE (10:20)
[2023-12-31] MEDS ORDERED: cefTRIAXone SODIUM 2 GM in SODIUM CHLORIDE 0.9% 100 ML IV ONE (10:20)
[2023-12-31 10:21] LABS: BASO% 0.1 % (0-3); HEMATOCRIT 39.4 % (39.0-50.0); IMMATURE GRANULOCYTES 0.1 % (0.0-5.0); LYMPH% 9.1 % (15-41); MEAN CORPUSCULAR HGB 25.4 pG CALC (26.0-32.0); MEAN CORPUSCULAR HGB CONC 27.9 g/dL CAL (32.0-36.0); MONO% 7.5 % (2-13); NEUT# 7.57 thou/uL (1.82-7.42); NEUT% 83.2 % (42-76); RED BLOOD COUNT 4.33 mill/uL (4.70-6.10); RED CELL DISTRI WIDTH 17.6 % (11.5-15.5)
[2023-12-31 10:30] LABS: ALBUMIN 3.5 g/dL (3.2-5.0); ALKALINE PHOSPHATASE 50 u/l (38-126); BUN 20 mg/dL (8-23); BUN/CREATININE RATIO 19 (12-20 (CALC)); CHLORIDE 94 mmol/l (95-108); CREATININE 1.1 mg/dL (0.7-1.3); ESTIMATED GFR 71 ML/MIN (>=90 (CALC)); POTASSIUM 4.2 mmol/l (3.5-5.1); SGOT/AST 27 u/l (19-48); SODIUM 137 mmol/l (137-146); TOTAL PROTEIN 6.3 g/dL (6.3-8.2)
[2023-12-31 10:39] LABS: ANION GAP 3 (6-22 (CALC)); BILIRUBIN, TOTAL 0.3 mg/dL (0.2-1.3); CARBON DIOXIDE 44 mmol/l (22-30)
[2023-12-31] MEDS ORDERED: Pantoprazole Sodium 40 MG VIAL (Protonix) IV ONE (11:25)
[2023-12-31] MEDS ORDERED: ACETAMINOPHEN 325 MG/TAB PO PRN (12:00)
[2023-12-31] MEDS ORDERED: MAGNESIUM HYDROXIDE 30 ML UDC PO PRN (12:00)
[2023-12-31 13:28] LABS: URINE BILIRUBIN - DIPSTICK Negative (NEGATIVE); URINE BLOOD DIPSTICK Negative (NEGATIVE); URINE GLUCOSE - DIPSTICK Negative (NEGATIVE); URINE KETONE Negative (NEGATIVE); URINE LEUK ESTERASE Negative (NEGATIVE); URINE NITRITE - DIPSTICK Negative (Negative); URINE PH 5.5 (4.5-8.0); URINE PROTEIN - DIPSTICK Negative (NEG-TRACE); URINE SPECIFIC GRAVITY 1.025; URINE UROBILINOGEN - DIPSTICK 0.2 E.U./dL (0.2)
[2023-12-31 13:30] LABS: URINE COLOR Yellow
[2023-12-31] MEDS ORDERED: methylPREDNISolone Sod Succ 40 MG/ML SDV IV SCH (14:00)
[2023-12-31] MEDS ORDERED: IPRATROPIUM-Albuterol 0.5MG-2.5MG/3 ML NEB SCH (15:00)
[2023-12-31] MEDS ORDERED: GABAPENTIN 300 MG/CAP PO SCH (15:00)
[2023-12-31] MEDS ORDERED: FUROSEMIDE 40 MG/4 ML SDV IV SCH (17:00)
[2023-12-31] MEDS ORDERED: PANTOPRAZOLE SODIUM Sesquihydr 40 MG/TAB PO SCH (21:00)
[2023-12-31] MEDS ORDERED: QUEtiapine FUMERATE 25 MG/TAB PO SCH (21:00)
[2023-12-31] MEDS ORDERED: ENOXAPARIN SODIUM 40 MG/0.4 ML SYR SC SCH (21:00)
[2023-12-31] MEDS ORDERED: AZITHROMYCIN 500 MG in SODIUM CHLORIDE 0.9% 250 ML IV SCH (23:00)
[2024-01-01] VITALS (22 sets, daily range): BP systolic 70–158; BP diastolic 50–99
[2024-01-01 05:40] LABS: ALBUMIN 3.2 g/dL (3.2-5.0); BILIRUBIN, TOTAL 0.3 mg/dL (0.2-1.3); CHOLESTEROL HDL RATIO 1.9 (<4.4 (CALC)); CREATININE 0.7 mg/dL (0.7-1.3); MAGNESIUM 2.2 mg/dL (1.6-2.3); POTASSIUM 4.4 mmol/l (3.5-5.1); TOTAL PROTEIN 5.8 g/dL (6.3-8.2)
[2024-01-01 05:52] LABS: HEMATOCRIT 37.3 % (39.0-50.0); IMMATURE GRANULOCYTES 0.3 % (0.0-5.0); LYMPH% 6.5 % (15-41); MEAN CELL VOLUME 85.6 fL CALC (80.0-100.0); MEAN CORPUSCULAR HGB 25.2 pG CALC (26.0-32.0); MEAN CORPUSCULAR HGB CONC 29.5 g/dL CAL (32.0-36.0); MONO% 1.7 % (2-13); NEUT# 6.38 thou/uL (1.82-7.42); NEUT% 91.5 % (42-76); RED BLOOD COUNT 4.36 mill/uL (4.70-6.10); RED CELL DISTRI WIDTH 16.2 % (11.5-15.5)
[2024-01-01] MEDS ORDERED: FLUTICASONE PROPIONATE (Nasal) 50MCG/SPRAY INH SCH (09:00)
[2024-01-01] MEDS ORDERED: ASPIRIN 81 MG/TAB PO SCH (09:00)
[2024-01-01] MEDS ORDERED: ONDANSETRON HCl 4 MG/2 ML SDV IV SCH (15:30)
[2024-01-01] MEDS ORDERED: METOCLOPRAMIDE HCL 10 MG/2 ML SDV IV SCH (15:30)
[2024-01-02] VITALS (13 sets, daily range): BP systolic 132–153; BP diastolic 66–83
[2024-01-02 05:33] LABS: BASO% 0.2 % (0-3); HEMATOCRIT 36.2 % (39.0-50.0); HEMOGLOBIN 10.7 g/dl (14.0-18.0); IMMATURE GRANULOCYTES 0.3 % (0.0-5.0); LYMPH% 7.2 % (15-41); MEAN CELL VOLUME 85.8 fL CALC (80.0-100.0); MEAN CORPUSCULAR HGB 25.4 pG CALC (26.0-32.0); MEAN CORPUSCULAR HGB CONC 29.6 g/dL CAL (32.0-36.0); MONO% 3.7 % (2-13); NEUT# 5.82 thou/uL (1.82-7.42); NEUT% 88.6 % (42-76); RED BLOOD COUNT 4.22 mill/uL (4.70-6.10); RED CELL DISTRI WIDTH 15.8 % (11.5-15.5)
[2024-01-02 06:00] LABS: ALBUMIN 3.1 g/dL (3.2-5.0); BILIRUBIN, TOTAL 0.2 mg/dL (0.2-1.3); CREATININE 0.9 mg/dL (0.7-1.3); MAGNESIUM 2.4 mg/dL (1.6-2.3); POTASSIUM 4.3 mmol/l (3.5-5.1); TOTAL PROTEIN 5.7 g/dL (6.3-8.2)
[2024-01-03] MEDS ORDERED: FUROSEMIDE 40 MG/TAB PO SCH (09:00)
== END 2024-01-02 14:33 | DRG 190 ==
LOC: ED 09:48 → ED-I 10:30 → ED 10:30 → ED-I 10:40 → ED 11:22 → ICU 11:23
PROVIDERS: Family Medicine; ADMIT Student in an Organized Health Care Education/Training Program; ATTEND Student in an Organized Health Care Education/Training Program
PROC: 5A09457 Assistance with Respiratory Ventilation, 24-96 Consecutive Hours, Continuous Positive Airway Pressure (ICD-10-PCS; principal; 2023-12-31)
PROC: 5A09457 Assistance with Respiratory Ventilation, 24-96 Consecutive Hours, Continuous Positive Airway Pressure (ICD-10-PCS; 2023-12-31)
DX: J44.1 Chronic obstructive pulmonary disease with (acute) exacerbation (principal); J96.21 Acute and chronic respiratory failure with hypoxia; J96.22 Acute and chronic respiratory failure with hypercapnia; E87.29 Other acidosis; K22.10 Ulcer of esophagus without bleeding; G93.49 Other encephalopathy; I11.0 Hypertensive heart disease with heart failure; I50.9 Heart failure, unspecified; E78.5 Hyperlipidemia, unspecified; F17.210 Nicotine dependence, cigarettes, uncomplicated; Z99.81 Dependence on supplemental oxygen; Z20.822 Contact with and (suspected) exposure to COVID-19
CPT/HCPCS: J1650; S0164

== ENCOUNTER 2024-01-11 07:50 | Inpatient (IN) | payer OTHER, MEDICARE, MEDICAID ==
[~2024-01-11] VITALS: Ht 172.7 cm; Wt 102.1 kg
[2024-01-11] VITALS (27 sets, daily range): BP systolic 87–149; BP diastolic 54–129
[2024-01-11] MEDS ORDERED: methylPREDNISolone SODIUM SUCC 125 MG/2 ML SDV IV ONE (08:00)
[2024-01-11] MEDS ORDERED: ALBUTEROL SULFATE 2.5 MG VIAL NEB ONE (08:00)
--- NOTE | 2024-01-11 08:00 | NUR ---
PT ARRIVES TO ROOM 6 VIA EMS. PT COMPLAINT OF SOB STARTING TODAY. PT VERY SOMULENT. WILL CONTINUE TO MONITOR.
[2024-01-11] MEDS ORDERED: AZITHROMYCIN 500 MG in SODIUM CHLORIDE 0.9% 250 ML IV ONE (08:10)
[2024-01-11] MEDS ORDERED: cefTRIAXone SODIUM 2 GM in SODIUM CHLORIDE 0.9% 100 ML IV ONE (08:10)
[2024-01-11 08:36] LABS: BASO% 0.1 % (0-3); HEMATOCRIT 37.5 % (39.0-50.0); HEMOGLOBIN 10.3 g/dl (14.0-18.0); IMMATURE GRANULOCYTES 0.6 % (0.0-5.0); LYMPH% 6.1 % (15-41); MEAN CELL VOLUME 90.8 fL CALC (80.0-100.0); MEAN CORPUSCULAR HGB 24.9 pG CALC (26.0-32.0); MEAN CORPUSCULAR HGB CONC 27.5 g/dL CAL (32.0-36.0); MONO% 5.2 % (2-13); NEUT# 5.94 thou/uL (1.82-7.42); RED BLOOD COUNT 4.13 mill/uL (4.70-6.10); RED CELL DISTRI WIDTH 17.1 % (11.5-15.5)
[2024-01-11 08:59] LABS: ALBUMIN 3.3 g/dL (3.2-5.0); ALKALINE PHOSPHATASE 54 u/l (38-126); BUN 16 mg/dL (8-23); BUN/CREATININE RATIO 21 (12-20 (CALC)); CHLORIDE 90 mmol/l (95-108); CREATININE 0.8 mg/dL (0.7-1.3); ESTIMATED GFR 94 ML/MIN (>=90 (CALC)); ETHYL ALCOHOL 0 mg/dl (0-30); POTASSIUM 4.3 mmol/l (3.5-5.1); SGOT/AST 24 u/l (19-48); SODIUM 135 mmol/l (137-146); TOTAL PROTEIN 6.1 g/dL (6.3-8.2)
--- NOTE | 2024-01-11 09:08 | NUR ---
X RAY AT BEDSIDE.
[2024-01-11 09:11] LABS: ANION GAP 1 (6-22 (CALC)); BILIRUBIN, TOTAL 0.4 mg/dL (0.2-1.3); CARBON DIOXIDE 48 mmol/l (22-30)
--- NOTE | 2024-01-11 10:02 | NUR ---
RESPIRATORY AT BEDSIDE.
[2024-01-11] MEDS ORDERED: IPRATROPIUM-Albuterol 0.5MG-2.5MG/3 ML NEB PRN (10:05)
[2024-01-11] MEDS ORDERED: ACETAMINOPHEN 325 MG/TAB PO PRN (10:05)
[2024-01-11] MEDS ORDERED: MAGNESIUM HYDROXIDE 30 ML UDC PO PRN (10:05)
--- NOTE | 2024-01-11 10:36 | NUR ---
PT REPORT TO BATCH TRUCKER.
--- NOTE | 2024-01-11 10:58 | NUR ---
male pt received to ICU bed 2 via stretcher accompanied by Courtney Valle RN and RT Noel; pt able to transfer self to bed; admission assessment completed at this time; Kavon Barillas NP present at bedside to assess pt and discuss plan of care; pt alert and oriented; denies pain; no n/v noted; resp labored; easily exerted, sob; lungs coarse/ diminished; skin color wnl; bipap intact and maintained 16/8, 30% FiO2; dry moist cough noted; hr reg; strong pulses; no edema noted; sr/st on monitor; abd soft/ distended with bs present; scant bm noted to underwear, pericare provided; pt able to void clear yellow urine; #20 to rac saline locked; no redness or edema noted at site; wound to right lower abd with packing intact; orders received to change; plan of care/meds explained; call light within reach; will continue to monitor
--- NOTE | 2024-01-11 11:00 | NUR ---
PT TRANSPORTED VIA CART TO ROOM 2 IN ICU ON PORTABLE MONITOR. TRANSFERRED CARE OF PT.
[2024-01-11] MEDS ORDERED: SEROQUEL25 MG PO (11:09)
[2024-01-11] MEDS ORDERED: TRAZODONE100 MG PO (11:10)
[2024-01-11] MEDS ORDERED: ALPRAZolam 0.25 MG PO PRN (11:40)
--- NOTE | 2024-01-11 12:10 | NUR ---
pt resting in bed with eyes closed; no apparent distress noted; bipap intact and maintained; FiO2 at 40%; st on monitor; call light within reach; will continue to monitor
[2024-01-11] MEDS ORDERED: methylPREDNISolone Sod Succ 40 MG/ML SDV IV SCH (14:00)
--- NOTE | 2024-01-11 14:09 | NUR ---
resting in bed with eyes closed; sr on monitor; iv intact; bipap intact and maintained; call light within reach; will continue to monitor
--- NOTE | 2024-01-11 16:10 | NUR ---
pt resting in bed with eyes closed; no apparent distress noted; iv intact; sr on monitor; bipap intact and maintained; call light within reach; will continue to monitor
[2024-01-11] MEDS ORDERED: FUROSEMIDE 20 MG/TAB PO SCH (17:00)
--- NOTE | 2024-01-11 18:00 | NUR ---
assist to bsc for lg soft brown bm and urination; pt unable to perform pericare; states "can" does it at home; pericare provided; complete linen change for lg urinary incont; iv flushed and patent; packing removed from right lower abd wound; wound noted shallow; wound packed with plain packing, covered with 4x4 and paper tape; st on monitor; o2 per nc; call light within reach
--- NOTE | 2024-01-11 19:30 | NUR ---
awake. no acute resp distress. o2 cont per nc. director of cardiac rehabilitation shows sinus rhythm. saline lock in place. po fluids taken well. void per urinal. fall precutions cont.
[2024-01-11] MEDS ORDERED: QUEtiapine FUMERATE 25 MG/TAB PO SCH (21:00)
[2024-01-11] MEDS ORDERED: ENOXAPARIN SODIUM 40 MG/0.4 ML SYR SC SCH (21:00)
[2024-01-11] MEDS ORDERED: traZODone HCL 50 MG/TAB PO SCH (21:00)
--- NOTE | 2024-01-11 21:00 | NUR ---
meds given. rt here. bipap began.
[2024-01-12] VITALS (27 sets, daily range): BP systolic 122–176; BP diastolic 71–109
--- NOTE | 2024-01-12 00:01 | NUR ---
eyes closed. bipap conts.
--- NOTE | 2024-01-12 02:00 | NUR ---
eyes closed. no apparent distress. bipap conts.
--- NOTE | 2024-01-12 04:00 | NUR ---
eyes closed. no apparent distress. machine biller shows sinus rhythm.
[2024-01-12 05:53] LABS: BASO% 0.1 % (0-3); HEMATOCRIT 35.9 % (39.0-50.0); HEMOGLOBIN 10.3 g/dl (14.0-18.0); IMMATURE GRANULOCYTES 0.3 % (0.0-5.0); LYMPH% 5.8 % (15-41); MEAN CELL VOLUME 87.8 fL CALC (80.0-100.0); MEAN CORPUSCULAR HGB 25.2 pG CALC (26.0-32.0); MEAN CORPUSCULAR HGB CONC 28.7 g/dL CAL (32.0-36.0); MONO% 1.6 % (2-13); NEUT# 6.17 thou/uL (1.82-7.42); NEUT% 92.2 % (42-76); RED BLOOD COUNT 4.09 mill/uL (4.70-6.10); RED CELL DISTRI WIDTH 16.1 % (11.5-15.5)
--- NOTE | 2024-01-12 06:00 | NUR ---
eyes closed. bipap cont.
[2024-01-12 06:07] LABS: BILIRUBIN, TOTAL 0.3 mg/dL (0.2-1.3); CREATININE 0.6 mg/dL (0.7-1.3); MAGNESIUM 2.4 mg/dL (1.6-2.3); POTASSIUM 4.2 mmol/l (3.5-5.1); TOTAL PROTEIN 5.4 g/dL (6.3-8.2)
--- NOTE | 2024-01-12 07:10 | NUR ---
pt resting in bed with eyes closed; no apparent distress noted; easily arousable; pt alert and oriented; denies pain; no n/v noted; resp even and unlabored; lungs coarse/diminished; skin color wnl; bipap at 32% FiO2; racing secretary moist cough noted; hr reg; pulses present; no edema noted; sr on monitor; abd sodt/distended with bs present; no bm noted per short story writer; pt voiding clear yellow urine; urinal at bedside; #20 to rac saline locked; no redness or edema noted at site; plan of care/ meds explained; pt demanding off bipap; RT informed; call light within reach; will continue to monitor
--- NOTE | 2024-01-12 07:42 | NUR ---
resp labored; RT at bedside; pt refusing bipap; requesting breakfast; informed pt the importance of resp status vs food; pt demanding to eat; senior mortgage underwriter attempts to remove tray and pt becomes very agitated; pt continues to refuse bipap; will continue to monitor
--- NOTE | 2024-01-12 08:08 | NUR ---
resting in bed with eyes closed; no apparent distress noted; sr on monitor; bipap intact and maintained; call light within reach; will continue to monitor
[2024-01-12] MEDS ORDERED: PANTOPRAZOLE SODIUM Sesquihydr 40 MG/TAB PO SCH (09:00)
[2024-01-12] MEDS ORDERED: AZITHROMYCIN 500 MG in SODIUM CHLORIDE 0.9% 250 ML IV SCH (09:30)
--- NOTE | 2024-01-12 10:02 | NUR ---
pt resting in bed with eyes closed; bipap intact; sr on monitor; call light within reach; will continue to monitor
--- NOTE | 2024-01-12 11:58 | NUR ---
awake in bed; son present at bedside; iv intact; bipap intact and maintained; call light within reach; will continue to monitor
--- NOTE | 2024-01-12 14:00 | NUR ---
resting with eyes closed; easily aroused; bipap intact; sr on monitor; call light within reach; will continue to monitor
--- NOTE | 2024-01-12 16:13 | NUR ---
pt resting in bed with eyes closed; sr on monitor; bipap intact and maintained; call light within reach; will continue to monitor
--- NOTE | 2024-01-12 17:01 | NUR ---
pt unable to tolerate being off bipap for extended times/meals; labored resp; shortness of breath; bipap reapplied
--- NOTE | 2024-01-12 18:11 | NUR ---
awake in bed; offers no complaints; iv intact; sr on monitor; linens dry; urinal emptied for 400cc; call light within reach
[2024-01-12] MEDS ORDERED: ONDANSETRON HCl 4 MG/2 ML SDV IV PRN (19:20)
--- NOTE | 2024-01-12 19:30 | NUR ---
Report received from daysidft nurse. Patient vomited while on BIPAP, patient was able to take mask off. Placed on 3L NC. RT at bedside, call placed to provider rehabilitation counselor for zofran order. Patient is A&Ox4. All needs addressed. Call light tyesha vidal.
--- NOTE | 2024-01-12 22:00 | NUR ---
Patient is resting in bed, denies any pain. On 3L NC, VS WNL. Vomiting has resolved. All needs addressed. Call light and urinal within reach. Bed alarm on.
[2024-01-13] VITALS (23 sets, daily range): BP systolic 124–168; BP diastolic 64–100
--- NOTE | 2024-01-13 | NUR ---
Patient is sleeping, does not appear to be in any distress. Patient keeps spitting up phlem. RT is not going to place patient back on BIPAP at this time. Patient is on 3L NC and tolerating. VS WNL. NSR on tele monitor. All needs addressed. Call light and urinal within reach.
--- NOTE | 2024-01-13 02:00 | NUR ---
Patient is resting in bed, denies any pain at this time. On 3L NC and tolerating, BIPAP on standby. VS WNL, NSR on tele monitor. All needs addressed. Call light and urinal within reach. Bed alarm on.
--- NOTE | 2024-01-13 04:00 | NUR ---
Patient is resting in bed, c/o nausea. Medicated with PRN zofran. On 3L NC and tolerating, BIPAP on standby. VS WNL, NSR on tele monitor. All needs addressed. Call light and urinal within reach. Bed alarm on.
--- NOTE | 2024-01-13 04:30 | NUR ---
Patient continues to have nausea/ vomiting despite zofran being given. Call placed to provider, Sree RAPHAEL ordered.
[2024-01-13] MEDS ORDERED: METOCLOPRAMIDE HCL 10 MG/2 ML SDV IV PRN (05:00)
--- NOTE | 2024-01-13 06:00 | NUR ---
Patient is sleeping, does not appear to be in any distress. On 3L NC, BIPAP on standby. VS WNL, NSR on tele monitor. All needs addressed. Call light and urinal within reach.
[2024-01-13 06:10] LABS: BASO% 0.1 % (0-3); HEMATOCRIT 39.6 % (39.0-50.0); HEMOGLOBIN 11.5 g/dl (14.0-18.0); IMMATURE GRANULOCYTES 0.2 % (0.0-5.0); LYMPH% 4.8 % (15-41); MEAN CORPUSCULAR HGB 25.3 pG CALC (26.0-32.0); NEUT# 8.04 thou/uL (1.82-7.42); NEUT% 91.9 % (42-76); RED BLOOD COUNT 4.55 mill/uL (4.70-6.10); RED CELL DISTRI WIDTH 16.6 % (11.5-15.5)
[2024-01-13 06:26] LABS: ALBUMIN 3.3 g/dL (3.2-5.0); BILIRUBIN, TOTAL 0.4 mg/dL (0.2-1.3); CREATININE 0.8 mg/dL (0.7-1.3); MAGNESIUM 2.5 mg/dL (1.6-2.3); POTASSIUM 4.1 mmol/l (3.5-5.1); TOTAL PROTEIN 6.1 g/dL (6.3-8.2)
--- NOTE | 2024-01-13 07:58 | NUR ---
REPORT RECEIVED FROM NIGHT RN. PT IS ASLEEP, AROUSABLE TO SPEECH. PT ANSWERS QUESTIONS APPROPRIATELY BUT IS DROWSY. PT HAS PRODUCTIVE COUGH AND VOICE IS RASPY. PT DID NOT WEAR BIPAP LAST NIGHT DUE TO NAUSEA/VOMITING. PT DENIES ANY NAUSEA AT THIS TIME; ON 4LNC. LUNG SOUNDS COARSE. PT IS NSR ON MONITOR. BOWEL SOUNDS ACTIVE. PULSES STRONG. SKIN W/D. PT HAS ABCESS IN ABDOMEN PRESENT ON ADMISSION WITH DRESSING IN PLACE. PT HAS URINAL AT BEDSIDE. AFEBRILE. DENIES ANY PAIN OR NEEDS. VSS.
--- NOTE | 2024-01-13 08:10 | NUR ---
PT PLACED BACK ON BIPAP BY RT.
--- NOTE | 2024-01-13 09:15 | NUR ---
DR. NUR AT BEDSIDE TO ASSESS PT.
--- NOTE | 2024-01-13 10:30 | NUR ---
NO CHANGES TO PT STATUS. PT STILL ON BIPAP AND AROUSABLE TO SPEECH.
--- NOTE | 2024-01-13 12:00 | NUR ---
NO CHANGES TO PT STATUS. REMAINS ON BIPAP, TOLERATING WELL. ASLEEP. VSS.
--- NOTE | 2024-01-13 14:00 | NUR ---
NO CHANGES TO PT STATUS. PT REMAINS ON BIPAP ASLEEP. PT AWOKEN TO CHECK STATUS; AROUSABLE TO SPEECH.
--- NOTE | 2024-01-13 14:28 | NUR ---
PT'S SON AT BEDSIDE.
--- NOTE | 2024-01-13 14:40 | NUR ---
PER PT REQUEST, TAKEN OFF OF BIPAP AND PLACED ON 4LNC. PT ASKING TO EAT. GIVEN WATER TO DRINK AND NO ISSUES SWALLOWING. PT'S SON BROUGHT FOOD AND PT EATING.
--- NOTE | 2024-01-13 15:30 | NUR ---
PT PLACED BACK ON BIPAP. TOLERATING WELL.
--- NOTE | 2024-01-13 17:30 | NUR ---
PT ATE DINNER WHILE ON 4LNC. DID WELL. NO VOMITING BUT IS PRODUCING LARGE AMOUNTS OF SPUTUM. VSS. CALL LIGHT IN REACH.
--- NOTE | 2024-01-13 18:00 | NUR ---
PT HAVING NAUSEA WITH SOME VOMITING AND LARGE AMOUNTS OF BELCHING. GIVEN PRN ZOFRAN PER SEP.
--- NOTE | 2024-01-13 20:00 | NUR ---
Report received from dayshift nurse. Patient is resting in bed, medicated for nausea/vomiting. Patient continues to be nauseous. On 4L NC and tolerating, BIPAP on standby. VS WNL. NSR on tele monitor. Urinal and call light within reach. All needs addressed.
--- NOTE | 2024-01-13 22:00 | NUR ---
Patient is resting in bed, denies any pain at this time. On 4L NC and tolerating, BIPAP on standby. No nausea/ vomiting at this time. Placed male purwick on patient per his request as he kept spilling urinal. Linen changed. VS WNL, NSR on tele monitor. All needs addressed at this time. Call light and belongings within reach. Bed alarm on.
[2024-01-14] VITALS (10 sets, daily range): BP systolic 134–162; BP diastolic 69–101
--- NOTE | 2024-01-14 | NUR ---
Patient is resting in bed, denies any pain. On 4L NC, BIPAP on standby. Male purwick in place, VS WNL, NSR on tele monitor. All needs addressed. Call light and belongings within reach.
--- NOTE | 2024-01-14 02:45 | NUR ---
RT placed patient on BIPAP. Patient tolerating well.
--- NOTE | 2024-01-14 04:00 | NUR ---
Patient is sleeping, does not appear to be in any distress. On BIPAP and tolerating. VS WNL, NSR on tele monitor. Male purwick in place. All needs addressed. Call light within reach.
[2024-01-14 05:38] LABS: HEMATOCRIT 37.8 % (39.0-50.0); HEMOGLOBIN 10.8 g/dl (14.0-18.0); IMMATURE GRANULOCYTES 0.2 % (0.0-5.0); LYMPH% 7.4 % (15-41); MEAN CELL VOLUME 87.7 fL CALC (80.0-100.0); MEAN CORPUSCULAR HGB 25.1 pG CALC (26.0-32.0); MEAN CORPUSCULAR HGB CONC 28.6 g/dL CAL (32.0-36.0); MONO% 5.2 % (2-13); NEUT# 4.34 thou/uL (1.82-7.42); NEUT% 87.2 % (42-76); RED BLOOD COUNT 4.31 mill/uL (4.70-6.10); RED CELL DISTRI WIDTH 16.1 % (11.5-15.5)
[2024-01-14 05:47] LABS: ALBUMIN 3.1 g/dL (3.2-5.0); BILIRUBIN, TOTAL 0.4 mg/dL (0.2-1.3); CREATININE 0.8 mg/dL (0.7-1.3); MAGNESIUM 2.6 mg/dL (1.6-2.3); POTASSIUM 4.2 mmol/l (3.5-5.1); TOTAL PROTEIN 5.5 g/dL (6.3-8.2)
--- NOTE | 2024-01-14 06:57 | NUR ---
REPORT RECEIVED FROM NIGHT RN. PT IS A/O. ON BIPAP. ASSISTED TO BEDSIDE COMMODE AND HAD BM. LINENS SOILED AND BED SHEETS CHANGED. PT NOW RESTING IN BED. VSS.
--- NOTE | 2024-01-14 08:20 | NUR ---
PT TAKEN OFF BIPAP AND PLACED ON 4LNC TO EAT BREAKFAST AND TAKE PO MEDS. PT EDUCATED TO EAT MORE SLOWLY THAN NORMAL IN AN ATTEMPT TO KEEP FOOD DOWN. PT VERBALIZED UNDERSTANDING.
--- NOTE | 2024-01-14 08:28 | NUR ---
DR. JENNINGS AT BEDSIDE TO ASSESS PT.
--- NOTE | 2024-01-14 10:23 | NUR ---
REPORT GIVEN TO ACCEPTING NURSE AT [facility]. ALL QUESTIONS ANSWERED.
--- NOTE | 2024-01-14 10:24 | NUR ---
NO CHANGES TO PT STATUS. REMAINS ON 4LNC. DENIES ANY NEEDS. CALL LIGHT AND BELONGINGS WITHIN REACH. VSS.
--- NOTE | 2024-01-14 10:37 | NUR ---
PT AT BEDSIDE TO WORK WITH PT.
--- NOTE | 2024-01-14 11:07 | NUR ---
PT LEFT WITH TRANSPORT COMPANY. ALL BELONGINGS SENT WITH PT. PT IN GOOD CONDITION ON DISCHARGE. IV REMOVED.
== END 2024-01-14 11:10 | DRG 190 ==
LOC: ED 07:50 → ED-I 09:33 → ED 09:47 → ICU 09:48
PROVIDERS: Family Medicine; Nurse Practitioner Family; ADMIT Internal Medicine; ATTEND Internal Medicine
PROC: 5A09457 Assistance with Respiratory Ventilation, 24-96 Consecutive Hours, Continuous Positive Airway Pressure (ICD-10-PCS; principal; 2024-01-11)
DX: J44.1 Chronic obstructive pulmonary disease with (acute) exacerbation (principal); J96.21 Acute and chronic respiratory failure with hypoxia; J96.22 Acute and chronic respiratory failure with hypercapnia; E87.29 Other acidosis; J20.9 Acute bronchitis, unspecified; J44.0 Chronic obstructive pulmonary disease with (acute) lower respiratory infection; I11.0 Hypertensive heart disease with heart failure; I50.9 Heart failure, unspecified; I25.10 Atherosclerotic heart disease of native coronary artery without angina pectoris; K20.90 Esophagitis, unspecified without bleeding; F10.10 Alcohol abuse, uncomplicated; E78.5 Hyperlipidemia, unspecified; F41.9 Anxiety disorder, unspecified; F17.210 Nicotine dependence, cigarettes, uncomplicated; Z87.11 Personal history of peptic ulcer disease; Z99.81 Dependence on supplemental oxygen; Z20.822 Contact with and (suspected) exposure to COVID-19
CPT/HCPCS: J1650

== ENCOUNTER 2024-02-19 15:22 | Emergency (ER) | payer OTHER, MEDICARE, MEDICAID ==
[~2024-02-19] VITALS: Ht 172.7 cm; Wt 104.3 kg
[2024-02-19] VITALS (11 sets, daily range): BP systolic 103–142; BP diastolic 63–76
[~2024-02-19 15:22] MED LIST changes: +SEROQUEL25 MG PO; +TRAZODONE100 MG PO
[2024-02-19] MEDS ORDERED: MIDAZOLAM HCL 2 MG/2 ML VIAL IV ONE (15:30)
[2024-02-19 16:03] LABS: BASO% 0.4 % (0-3); HEMATOCRIT 38.5 % (39.0-50.0); IMMATURE GRANULOCYTES 2.4 % (0.0-5.0); LYMPH% 13.8 % (15-41); MEAN CORPUSCULAR HGB 27.2 pG CALC (26.0-32.0); MEAN CORPUSCULAR HGB CONC 28.6 g/dL CAL (32.0-36.0); MONO% 8.9 % (2-13); NEUT# 3.35 thou/uL (1.82-7.42); NEUT% 74.5 % (42-76); RED BLOOD COUNT 4.04 mill/uL (4.70-6.10); RED CELL DISTRI WIDTH 19.2 % (11.5-15.5)
[2024-02-19 16:04] LABS: MEAN CELL VOLUME 95.3 fL CALC (80.0-100.0)
[2024-02-19 16:16] LABS: BILIRUBIN, TOTAL 0.5 mg/dL (0.2-1.3); CHLORIDE 92 mmol/l (95-108); CREATININE 0.8 mg/dL (0.7-1.3); ESTIMATED GFR 94 ML/MIN (>=90 (CALC)); POTASSIUM 4.6 mmol/l (3.5-5.1); SGOT/AST 23 u/l (19-48); SODIUM 140 mmol/l (137-146)
[2024-02-19 16:23] LABS: BUN 9 mg/dL (8-23); BUN/CREATININE RATIO 11 (12-20 (CALC))
[2024-02-19 16:24] LABS: ALBUMIN 3.9 g/dL (3.2-5.0); ALKALINE PHOSPHATASE 70 u/l (38-126); ANION GAP 8 (6-22 (CALC)); CARBON DIOXIDE 45 mmol/l (22-30); TOTAL PROTEIN 6.9 g/dL (6.3-8.2)
== END 2024-02-19 18:15 | disposition home or self-care (01) | DRG 125 ==
LOC: ED 15:22
PROVIDERS: Nurse Practitioner
DX: S00.12XA Contusion of left eyelid and periocular area, initial encounter (principal); S00.81XA Abrasion of other part of head, initial encounter; J44.9 Chronic obstructive pulmonary disease, unspecified; I11.0 Hypertensive heart disease with heart failure; I50.9 Heart failure, unspecified; K21.9 Gastro-esophageal reflux disease without esophagitis; F14.10 Cocaine abuse, uncomplicated; E78.5 Hyperlipidemia, unspecified; F41.9 Anxiety disorder, unspecified; F17.210 Nicotine dependence, cigarettes, uncomplicated; W01.0XXA Fall on same level from slipping, tripping and stumbling without subsequent striking against object, initial encounter; Y92.002 Bathroom of unspecified non-institutional (private) residence as the place of occurrence of the external cause

== ENCOUNTER 2024-04-05 19:03 | Inpatient (IN) | payer OTHER, MEDICARE, MEDICAID ==
[2024-04-05] VITALS (19 sets, daily range): BP systolic 105–150; BP diastolic 67–79
[~2024-04-05] VITALS: Ht 172.7 cm; Wt 105.4 kg
[~2024-04-05 19:03] MED LIST changes: +ACETYLCYSTEINE 20% 200 MG/ML SDV IN SCH; +LASIX 40 MG TAB40 MG PO; +MOTRIN400 MG/TAB PO; +TRELEGY ELLIPTA1 AER IN; +XANAX0.25 MG PO
[2024-04-05] MEDS ORDERED: IPRATROPIUM-Albuterol 0.5MG-2.5MG/3 ML NEB ONE (19:15)
[2024-04-05] MEDS ORDERED: FUROSEMIDE 40 MG/4 ML SDV IV ONE (19:15)
[2024-04-05] MEDS ORDERED: methylPREDNISolone SODIUM SUCC 125 MG/2 ML SDV IV ONE (19:15)
[2024-04-05] MEDS ORDERED: SODIUM CHLORIDE 0.9% 1,000 ML IV ONE (19:35)
[2024-04-05] MEDS ORDERED: PROPOFOL 100 ML IV ONE (19:35)
[2024-04-05] MEDS ORDERED: Levofloxacin 750 mg Premix 150 ML IV ONE (19:35)
[2024-04-05 20:15] LABS: BASO% 0.2 % (0-3); HEMOGLOBIN 11.7 g/dl (14.0-18.0); IMMATURE GRANULOCYTES 0.7 % (0.0-5.0); MEAN CORPUSCULAR HGB 26.4 pG CALC (26.0-32.0); MEAN CORPUSCULAR HGB CONC 27.8 g/dL CAL (32.0-36.0); MONO% 6.6 % (2-13); NEUT# 3.5 thou/uL (1.82-7.42); NEUT% 77.5 % (42-76); RED BLOOD COUNT 4.43 mill/uL (4.70-6.10); RED CELL DISTRI WIDTH 16.9 % (11.5-15.5)
[2024-04-05 20:16] LABS: URINE BILIRUBIN - DIPSTICK Negative (NEGATIVE); URINE BLOOD DIPSTICK Trace-intact (NEGATIVE); URINE GLUCOSE - DIPSTICK Negative (NEGATIVE); URINE KETONE Negative (NEGATIVE); URINE LEUK ESTERASE Negative (NEGATIVE); URINE NITRITE - DIPSTICK Negative (Negative); URINE PH 5.5 (4.5-8.0); URINE PROTEIN - DIPSTICK Negative (NEG-TRACE); URINE SPECIFIC GRAVITY 1.025; URINE UROBILINOGEN - DIPSTICK 0.2 E.U./dL (0.2)
[2024-04-05 20:17] LABS: HEMATOCRIT 42.1 % (39.0-50.0)
[2024-04-05 20:18] LABS: URINE COLOR Yellow
[2024-04-05 20:32] LABS: BUN 17 mg/dL (8-23); BUN/CREATININE RATIO 22 (12-20 (CALC)); CHLORIDE 91 mmol/l (95-108); CREATININE 0.8 mg/dL (0.7-1.3); ESTIMATED GFR 94 ML/MIN (>=90 (CALC)); SODIUM 138 mmol/l (137-146)
[2024-04-05 20:41] LABS: ALBUMIN 4.3 g/dL (3.2-5.0); ALKALINE PHOSPHATASE 77 u/l (38-126); ANION GAP 10 (6-22 (CALC)); BILIRUBIN, TOTAL 0.9 mg/dL (0.2-1.3); CARBON DIOXIDE 43 mmol/l (22-30); SGOT/AST 33 u/l (19-48); TOTAL PROTEIN 7.8 g/dL (6.3-8.2)
[2024-04-05] MEDS ORDERED: SODIUM POLYSTYRENE SULFONATE 15 G/BTL POWDER VT ONE (20:50)
[2024-04-05] MEDS ORDERED: SUCCINYLCHOLINE CHLORIDE 20 MG/ML 10ML VIAL IV ONE (20:50)
[2024-04-05] MEDS ORDERED: CALCIUM GLUCONATE 1 GM in SODIUM CHLORIDE 0.9% 50 ML IV ONE (20:50)
[2024-04-05] MEDS ORDERED: INSULIN REGULAR (HUMAN) 100 UNIT/ML INJ IV ONE (20:50)
[2024-04-05] MEDS ORDERED: DEXTROSE 10% 500 ML BAG IV ONE (20:50)
[2024-04-05] MEDS ORDERED: ETOMIDATE 20 MG/10 ML SDV IV ONE (20:50)
[2024-04-05] MEDS ORDERED: SODIUM CHLORIDE 0.9% 1,000 ML IV PRN (21:30)
[2024-04-05] MEDS ORDERED: ACETAMINOPHEN 325 MG/TAB PO PRN (22:00)
[2024-04-05] MEDS ORDERED: MAGNESIUM HYDROXIDE 30 ML UDC PO PRN (22:00)
[2024-04-05] MEDS ORDERED: methylPREDNISolone Sod Succ 40 MG/ML SDV IV SCH (22:00)
[2024-04-05] MEDS ORDERED: IPRATROPIUM-Albuterol 0.5MG-2.5MG/3 ML NEB SCH (23:00)
[2024-04-06] VITALS (69 sets, daily range): BP systolic 107–156; BP diastolic 65–116
[2024-04-06] MEDS ORDERED: METOPROLOL TARTRATE 5 MG/5 ML VIAL IV SCH (01:52)
[2024-04-06] MEDS ORDERED: PROPOFOL 100 ML IV ONE (02:22)
[2024-04-06] MEDS ORDERED: PROPOFOL 100 ML IV PRN (02:30)
[2024-04-06 04:53] LABS: BASO% 0.3 % (0-3); HEMATOCRIT 37.7 % (39.0-50.0); IMMATURE GRANULOCYTES 0.5 % (0.0-5.0); LYMPH% 8.2 % (15-41); MEAN CELL VOLUME 91.7 fL CALC (80.0-100.0); MEAN CORPUSCULAR HGB 26.8 pG CALC (26.0-32.0); MEAN CORPUSCULAR HGB CONC 29.2 g/dL CAL (32.0-36.0); MONO% 2.6 % (2-13); NEUT# 3.35 thou/uL (1.82-7.42); NEUT% 88.4 % (42-76); RED BLOOD COUNT 4.11 mill/uL (4.70-6.10)
[2024-04-06 04:58] LABS: BILIRUBIN, TOTAL 0.6 mg/dL (0.2-1.3); CREATININE 0.7 mg/dL (0.7-1.3); MAGNESIUM 1.8 mg/dL (1.6-2.3)
[2024-04-06 05:08] LABS: POTASSIUM 3.8 mmol/l (3.5-5.1)
[2024-04-06 05:10] LABS: ALBUMIN 3.3 g/dL (3.2-5.0); TOTAL PROTEIN 5.9 g/dL (6.3-8.2)
[2024-04-06] MEDS ORDERED: methylPREDNISolone Sod Succ 40 MG/ML SDV IV SCH (06:00)
[2024-04-06] MEDS ORDERED: METOPROLOL TARTRATE 5 MG/5 ML VIAL IV PRN ×2 (06:50→16:15)
[2024-04-06] MEDS ORDERED: MORPHINE SULFATE 4 MG/ML VIAL IV PRN (06:50)
[2024-04-06] MEDS ORDERED: FUROSEMIDE 40 MG/4 ML SDV IV SCH (09:00)
[2024-04-06] MEDS ORDERED: Pantoprazole Sodium 40 MG VIAL (Protonix) IV SCH (09:00)
[2024-04-06] MEDS ORDERED: Levofloxacin 750 mg Premix 150 ML IV SCH (09:00)
[2024-04-06] MEDS ORDERED: MORPHINE SULFATE 4 MG/ML VIAL IV SCH (15:30)
[2024-04-06] MEDS ORDERED: SODIUM CHLORIDE 0.9% 250 ML IV PRN (16:10)
[2024-04-06] MEDS ORDERED: ACETAMINOPHEN 1,000 MG/100 ML VIAL IV PRN (16:10)
[2024-04-06] MEDS ORDERED: LORazepam 2 MG/ML IV PRN (16:15)
[2024-04-06] MEDS ORDERED: LORazepam 2 MG/ML IV SCH (16:30)
[2024-04-06] MEDS ORDERED: DEXTROSE 250 ML IV PRN (18:25)
[2024-04-06] MEDS ORDERED: LEVALBUTEROL HCL 1.25 MG/3 ML VIAL NEB SCH ×2 (19:00→23:00)
[2024-04-06] MEDS ORDERED: IPRATROPIUM BROMIDE 0.5 MG/2.5 ML SOL IN SCH ×2 (19:00→23:00)
[2024-04-06] MEDS ORDERED: INSULIN LISPRO 100 UNITS/ML ML SC SCH (21:00)
[2024-04-06] MEDS ORDERED: ENOXAPARIN SODIUM 40 MG/0.4 ML SYR SC SCH (21:00)
[2024-04-07] VITALS (47 sets, daily range): BP systolic 133–176; BP diastolic 72–125
[2024-04-07] MEDS ORDERED: LORazepam 2 MG/ML IV PRN (03:10)
[2024-04-07 05:36] LABS: BASO% 0.2 % (0-3); HEMOGLOBIN 11.1 g/dl (14.0-18.0); IMMATURE GRANULOCYTES 0.5 % (0.0-5.0); LYMPH% 9.7 % (15-41); MEAN CELL VOLUME 87.8 fL CALC (80.0-100.0); MEAN CORPUSCULAR HGB 27.1 pG CALC (26.0-32.0); MEAN CORPUSCULAR HGB CONC 30.8 g/dL CAL (32.0-36.0); MONO% 8.8 % (2-13); NEUT# 3.59 thou/uL (1.82-7.42); NEUT% 80.8 % (42-76); RED BLOOD COUNT 4.1 mill/uL (4.70-6.10); RED CELL DISTRI WIDTH 15.7 % (11.5-15.5)
[2024-04-07 06:05] LABS: ALBUMIN 3.5 g/dL (3.2-5.0); BILIRUBIN, TOTAL 0.5 mg/dL (0.2-1.3); CREATININE 0.8 mg/dL (0.7-1.3); MAGNESIUM 2.2 mg/dL (1.6-2.3); POTASSIUM 3.5 mmol/l (3.5-5.1); TOTAL PROTEIN 6.1 g/dL (6.3-8.2)
[2024-04-07] MEDS ORDERED: hydrALAZINE HCL 20 MG/ML VIAL(1 ML) IV PRN (07:05)
[2024-04-08] VITALS (16 sets, daily range): BP systolic 129–163; BP diastolic 72–99
[2024-04-08] MEDS ORDERED: SODIUM CHLORIDE 0.9% 100 ML IV ONE (01:12)
[2024-04-08 05:44] LABS: HEMATOCRIT 36.6 % (39.0-50.0); HEMOGLOBIN 11.5 g/dl (14.0-18.0); MEAN CELL VOLUME 86.3 fL CALC (80.0-100.0); MEAN CORPUSCULAR HGB 27.1 pG CALC (26.0-32.0); MEAN CORPUSCULAR HGB CONC 31.4 g/dL CAL (32.0-36.0); RED BLOOD COUNT 4.24 mill/uL (4.70-6.10); RED CELL DISTRI WIDTH 15.8 % (11.5-15.5)
[2024-04-08 05:46] LABS: ALBUMIN 3.5 g/dL (3.2-5.0); BILIRUBIN, TOTAL 0.6 mg/dL (0.2-1.3); CREATININE 0.7 mg/dL (0.7-1.3); MAGNESIUM 2.3 mg/dL (1.6-2.3); POTASSIUM 3.5 mmol/l (3.5-5.1); TOTAL PROTEIN 6.2 g/dL (6.3-8.2)
[2024-04-08] MEDS ORDERED: FUROSEMIDE 40 MG/TAB PO SCH (09:00)
[2024-04-08] MEDS ORDERED: ASPIRIN 81 MG/TAB PO SCH (09:00)
[2024-04-08] MEDS ORDERED: LOSARTAN Potassium 50 MG/TAB PO SCH (20:59)
[2024-04-08] MEDS ORDERED: GABAPENTIN 300 MG/CAP PO SCH (21:00)
[2024-04-08] MEDS ORDERED: QUEtiapine FUMERATE 25 MG/TAB PO SCH (21:00)
[2024-04-08] MEDS ORDERED: predniSONE 20 MG/TAB PO SCH (21:00)
[2024-04-09] VITALS (12 sets, daily range): BP systolic 100–151; BP diastolic 44–85
[2024-04-09] MEDS ORDERED: PANTOPRAZOLE SODIUM Sesquihydr 40 MG/TAB PO SCH (09:00)
[2024-04-10 01:00] VITALS: BP 137/73
[2024-04-10] MEDS ORDERED: LEVOFLOXACIN750 MG PO (08:20)
[2024-04-10 11:01] VITALS: BP 125/101
== END 2024-04-09 12:30 | disposition hospice, inpatient (51) | DRG 208 ==
LOC: ED 19:03 → ED-I 20:39 → ED 20:52 → ED-I 20:53 → ICU 04-08 19:57
PROVIDERS: Family Medicine; Internal Medicine; ADMIT Student in an Organized Health Care Education/Training Program; ATTEND Student in an Organized Health Care Education/Training Program
PROC: 0BH17EZ Insertion of Endotracheal Airway into Trachea, Via Natural or Artificial Opening (ICD-10-PCS; principal; 2024-04-05)
PROC: 5A1935Z Respiratory Ventilation, Less than 24 Consecutive Hours (ICD-10-PCS; 2024-04-05)
PROC: 0T9B70Z Drainage of Bladder with Drainage Device, Via Natural or Artificial Opening (ICD-10-PCS; 2024-04-05)
PROC: 5A0945A Assistance with Respiratory Ventilation, 24-96 Consecutive Hours, High Flow/Velocity Cannula (ICD-10-PCS; 2024-04-07)
DX: J15.1 Pneumonia due to Pseudomonas (principal); J96.22 Acute and chronic respiratory failure with hypercapnia; J96.21 Acute and chronic respiratory failure with hypoxia; J44.1 Chronic obstructive pulmonary disease with (acute) exacerbation; J44.0 Chronic obstructive pulmonary disease with (acute) lower respiratory infection; I50.32 Chronic diastolic (congestive) heart failure; E87.3 Alkalosis; F31.0 Bipolar disorder, current episode hypomanic; I11.0 Hypertensive heart disease with heart failure; E87.5 Hyperkalemia; F10.10 Alcohol abuse, uncomplicated; D64.9 Anemia, unspecified; K20.80 Other esophagitis without bleeding; R73.9 Hyperglycemia, unspecified; I25.10 Atherosclerotic heart disease of native coronary artery without angina pectoris; E78.5 Hyperlipidemia, unspecified; S81.812A Laceration without foreign body, left lower leg, initial encounter; I49.1 Atrial premature depolarization; N40.0 Benign prostatic hyperplasia without lower urinary tract symptoms; F41.0 Panic disorder [episodic paroxysmal anxiety]; K21.9 Gastro-esophageal reflux disease without esophagitis; E66.9 Obesity, unspecified; F17.210 Nicotine dependence, cigarettes, uncomplicated; W22.03XA Walked into furniture, initial encounter; Z51.5 Encounter for palliative care; Z66 Do not resuscitate; Z99.81 Dependence on supplemental oxygen; Z91.199 Patient's noncompliance with other medical treatment and regimen due to unspecified reason; Z87.11 Personal history of peptic ulcer disease; Z68.35 Body mass index [BMI] 35.0-35.9, adult; Z20.822 Contact with and (suspected) exposure to COVID-19
CPT/HCPCS: J0131; J1650; J2060; J2470; J3490

== ENCOUNTER 2024-04-09 12:31 | Inpatient (IN) | payer OTHER, MEDICARE, MEDICAID ==
[~2024-04-09 12:31] MED LIST changes: -ACETYLCYSTEINE 20% 200 MG/ML SDV IN SCH
[2024-04-09] MEDS ORDERED: LORazepam 0.5 MG/TAB PO PRN (15:05)
[2024-04-09] MEDS ORDERED: MORPHINE SULFATE 10 MG/5 ML UDC PO PRN (15:05)
[2024-04-09] MEDS ORDERED: ONDANSETRON HCl 4 MG/2 ML SDV IV PRN (15:05)
[2024-04-09] MEDS ORDERED: ACETAMINOPHEN 325 MG/TAB PO PRN (15:05)
[2024-04-09] MEDS ORDERED: MORPHINE SULFATE 4 MG/ML VIAL IV PRN (15:05)
[2024-04-09] MEDS ORDERED: ALBUTEROL SULFATE 2.5 MG VIAL IN SCH (19:00)
[2024-04-09] MEDS ORDERED: predniSONE 20 MG/TAB PO SCH (21:00)
[2024-04-10] MEDS ORDERED: LEVOFLOXACIN750 MG PO (08:20)
[2024-04-10] MEDS ORDERED: levoFLOXacin 500 MG TAB PO SCH (09:00)
[2024-04-10] MEDS ORDERED: levoFLOXacin hemihydrate 250 MG/TAB PO SCH (09:00)
[2024-04-10] MEDS ORDERED: PANTOPRAZOLE SODIUM Sesquihydr 40 MG/TAB PO SCH (09:00)
== END 2024-04-10 14:12 | disposition hospice, home (50) | DRG 951 ==
LOC: ICU 12:31
PROVIDERS: ADMIT Internal Medicine; ATTEND Internal Medicine
DX: Z51.5 Encounter for palliative care (principal); J15.1 Pneumonia due to Pseudomonas; J96.22 Acute and chronic respiratory failure with hypercapnia; J96.21 Acute and chronic respiratory failure with hypoxia; J44.0 Chronic obstructive pulmonary disease with (acute) lower respiratory infection; J44.1 Chronic obstructive pulmonary disease with (acute) exacerbation; I11.0 Hypertensive heart disease with heart failure; I50.9 Heart failure, unspecified; I25.10 Atherosclerotic heart disease of native coronary artery without angina pectoris; E78.5 Hyperlipidemia, unspecified; F17.210 Nicotine dependence, cigarettes, uncomplicated; Z66 Do not resuscitate; Z99.81 Dependence on supplemental oxygen; Z87.11 Personal history of peptic ulcer disease